=== PATIENT | female | born 1950 | race Caucasian/White ===

== ENCOUNTER → 2018-06-19 08:20 | Outpatient (CLI) | payer MEDICARE, OTHER, SELFPAY ==
--- NOTE | 2018-06-19 08:26 | BI_ITS ---
MAMMOGRAPHY - BILATERAL SCREENING REASON FOR EXAM: Female, 67 years old. Routine annual screening examination. PERTINENT HISTORY: Sisters with breast cancer. TECHNIQUE: Digital bilateral breast irene (3D mammographic acquisition) in the CC and MLO projections. 2-D mediolateral oblique (MLO) and craniocaudad (CC) views of both breasts were obtained. CAD: Full Field Digital Mammography with Computer Added Detection was performed. COMPARISON: Comparison is made with prior study dated May 26, 2017 and May 14, 2016. FINDINGS: Breast Composition: There are scattered areas of fibroglandular density. There are no dominant masses or suspicious calcifications. There is a 6.7 mm x 7.6 mm well-defined nodule in the upper lateral portion of the left breast. This most likely represents a small lymph node. Correlation with ultrasound is recommended. There are small bilateral benign appearing axillary lymph nodes. No other significant abnormalities are identified. There has been no significant change since the prior study. BI/SCREENING MAMM (CAD), BILAT IMPRESSION: 6.7 mm x 7.6 mm multiple fine nodule in the upper lateral portion of the left breast. Correlation with ultrasound is recommended. ASSESSMENT CATEGORY: BIRADS Category 0: Incomplete. Need additional imaging evaluation. A letter regarding these results will be sent to the patient by the facility within 30 days. Approximately 10% of breast cancers are not detected by mammography. A normal mammogram should not delay biopsy of a clinically suspicious abnormality. [id number] Electronically Signed: Fernando Bullard MD at 10:34 EST Tel [phone], Service support ,
== END ==
PROVIDERS: Family Provider Internal Medicine; PCP Internal Medicine; Referring Provider Internal Medicine; Visit Provider Internal Medicine
DX: Z12.31 Encounter for screening mammogram for malignant neoplasm of breast (principal); N63.20 Unspecified lump in the left breast, unspecified quadrant
CPT/HCPCS: 77063; 77067

== ENCOUNTER → 2018-06-22 09:59 | Outpatient (CLI) | payer MEDICARE, OTHER, SELFPAY ==
--- NOTE | 2018-06-22 10:01 | US_ITS ---
STUDY: ULTRASOUND BREAST - LEFT REASON FOR EXAM: Female, 67 years old. Abnormal screening mammogram. TECHNIQUE: Axial and longitudinal images of the LEFT breast were performed with a high resolution ultrasound transducer. COMPARISON: Comparison is made with prior mammogram dated June 19, 2018. FINDINGS: LEFT Breast: The mammographic abnormality corresponds to a 0.8 cm x 0.2 cm well-defined hypoechoic nodule with central echogenic hilum. This is suggestive of a small lymph node. US/Breast Limited Unilateral IMPRESSION: The mammographic findings correspond to a small benign-appearing lymph node. Routine annual mammographic follow-up is recommended. ASSESSMENT CATEGORY: BIRADS Category 2: Benign. A letter regarding these results will be sent to the patient by the facility within 30 days. Electronically Signed: Fernando Bullard MD at 11:14 EST Tel [phone], Service support ,
== END ==
PROVIDERS: Family Provider Internal Medicine; PCP Internal Medicine; Referring Provider Internal Medicine; Visit Provider Internal Medicine
DX: R92.8 Other abnormal and inconclusive findings on diagnostic imaging of breast (principal)
CPT/HCPCS: 76642

== ENCOUNTER → 2019-02-22 08:36 | Outpatient (CLI) | payer MEDICARE, OTHER, SELFPAY ==
--- NOTE | 2019-02-22 08:39 | BI_ITS ---
MAMMOGRAPHY - BILATERAL DIAGNOSTIC REASON FOR EXAM: Female, 68 years old. Left breast lump. PERTINENT HISTORY: Sisters with breast cancer. TECHNIQUE: Digital bilateral breast irene (3D mammographic acquisition) in the CC and MLO projections. 2-D mediolateral oblique (MLO) and craniocaudad (CC) views of both breasts were obtained. CAD: Full Field Digital Mammography with Computer Added Detection was performed. COMPARISON: Comparison is made with prior study dated June 19, 2018 and May 26, 2017. FINDINGS: Breast Composition: There are scattered areas of fibroglandular density. There are no dominant masses or suspicious calcifications. Stable 6.7 x 7 mm well-defined nodule in the upper lateral portion of the left breast most likely a small lymph node. Prior ultrasound demonstrated to be a lymph node. Stable small bilateral axillary lymph nodes. No other significant abnormalities are identified. There has been no significant change since the prior study. BI/DIAG MAMM W/CAD, BILAT IMPRESSION: Stable bilateral diagnostic mammogram. With the patient's history of a palpable abnormality in the left breast, correlation with ultrasound is recommended. ASSESSMENT CATEGORY: BIRADS Category 0: Incomplete. Need additional imaging evaluation. A letter regarding these results will be sent to the patient by the facility within 30 days. Approximately 10% of breast cancers are not detected by mammography. A normal mammogram should not delay biopsy of a clinically suspicious abnormality. Electronically Signed: Fernando Bullard, at 10:36 EDT , Service support ,
--- NOTE | 2019-02-22 08:39 | US_ITS ---
STUDY: ULTRASOUND BREAST - LEFT REASON FOR EXAM: Female, 68 years old. Palpable lump left breast. TECHNIQUE: Axial and longitudinal images of the LEFT breast were performed with a high resolution ultrasound transducer. COMPARISON: Comparison is made with prior mammogram done earlier in the day as well as prior ultrasound the left breast dated June 22, 2018. FINDINGS: LEFT Breast: The inferior half of the left breast was examined by ultrasound. There is homogeneous fibroglandular tissue. No solid or cystic mass lesion is seen. US/Breast Limited Unilateral IMPRESSION: Unremarkable sonographic examination of the inferior aspect of the left breast. ASSESSMENT CATEGORY: BIRADS Category 1: Negative. A letter regarding these results will be sent to the patient by the facility within 30 days. Electronically Signed: Fernando Bullard, at 10:37 EDT , Service support ,
== END ==
PROVIDERS: Family Provider Internal Medicine; PCP Internal Medicine; Referring Provider Obstetrics & Gynecology; Visit Provider Obstetrics & Gynecology
DX: N63.23 Unspecified lump in the left breast, lower outer quadrant (principal)
CPT/HCPCS: 76642; 77062; 77066; G0279

== ENCOUNTER → 2020-05-27 12:52 | Outpatient (CLI) | payer MEDICARE, OTHER, SELFPAY ==
--- NOTE | 2020-05-27 12:55 | BI_ITS ---
MAMMOGRAPHY - BILATERAL SCREENING REASON FOR EXAM: Female, 69 years old. Routine annual screening examination. PERTINENT HISTORY: Sisters with breast cancer. TECHNIQUE: Digital bilateral breast terry (3D mammographic acquisition) in the CC and MLO projections. 2-D mediolateral oblique (MLO) and craniocaudad (CC) views of both breasts were obtained. CAD: Full Field Digital Mammography with Computer Added Detection was performed. COMPARISON: Comparison is made with prior study dated 02/22/2019 and 06/19/2018. FINDINGS: Breast Composition: There are scattered areas of fibroglandular density. There are no dominant masses or suspicious calcifications. Stable benign-appearing bilateral axillary lymph nodes. Stable 6 mm x 7 mm well-defined nodule in the upper lateral portion of the left breast most likely representing a small intramammary lymph node. Prior ultrasound demonstrated this to be a small lymph node. No other significant abnormalities are identified. There has been no significant change since the prior study. BI/SCREEN MAMM (CAD) W/TERRY BILAT IMPRESSION: Stable bilateral screening mammogram. Yearly follow-up mammogram recommended. (A) ASSESSMENT CATEGORY: BIRADS Category 2: Benign. A letter regarding these results will be sent to the patient by the facility within 30 days. Approximately 10% of breast cancers are not detected by mammography. A normal mammogram should not delay biopsy of a clinically suspicious abnormality. [id number] Electronically Signed: Fernando Bullard, at 9:44 EDT , Service support ,
--- NOTE | 2020-05-27 13:02 | BD_ITS ---
STUDY: DUAL ENERGY X-RAY ABSORPTIOMETRY / DXA REASON FOR EXAM: Female, 69 years old. 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 COMPARISON: None. FINDINGS: Lumbar Spine (L1-L4): g/cm2 (0.990) / T-score (-1.5) / Z-score (0.2) Findings are suggestive of osteopenia with a low fracture risk. Left Femur Total: g/cm2 (0.799) / T-score (-1.7) / Z-score (-0.3) Left Femoral Neck: g/cm2 (0.852) / T-score (-1.3) / Z-score (0.3) Right Femur Total: g/cm2 (0.724) / T-score (-2.2) / Z-score (-0.9) Right Femoral Neck: g/cm2 (0.770) / T-score (-1.9) / Z-score (-0.3) BD/Dexa Bone Density Study IMPRESSION: The patient is considered osteopenic as outlined below according to World Derek Organization (WHO) criteria with a high fracture risk. Reference Information: The T-score is the number of standard deviations above or below the standard which is normal for young adults at their peak bone mineral density. The World Health Organization (WHO) interprets the T-scores as follows: Above -1 Normal bone density Between -1 and -2.5 Osteopenia Equal to / or below -2.5 Osteoporosis As a practical clinical guideline, osteopenia may be graded as follows: Mild -1 through -1.5 Moderate -1.6 through -2.0 Severe -2.1 through -2.4 The Z-score is the number of standard deviations above or below age-matched controls. A Z-score of less than -1.5 would be considered abnormal. References: 1. NIH Osteoporosis and Related Bone Diseases www osteo.org 2. International Society for Clinical Densitometry www iscd.org 3. National Osteoporosis Foundation www nof.org Electronically Signed: Fernando Bullard, at 8:54 EDT , Service support ,
== END ==
PROVIDERS: PCP Internal Medicine; Referring Provider Internal Medicine; Visit Provider Internal Medicine
DX: Z78.0 Asymptomatic menopausal state (principal); Z12.31 Encounter for screening mammogram for malignant neoplasm of breast; Z80.3 Family history of malignant neoplasm of breast
CPT/HCPCS: 77063; 77067; 77080

== ENCOUNTER → 2021-05-28 10:04 | Outpatient (CLI) | payer MEDICARE, OTHER, SELFPAY ==
--- NOTE | 2021-05-28 10:08 | BI_ITS ---
MAMMOGRAPHY - BILATERAL SCREENING REASON FOR EXAM: Female, 70 years old. Routine annual screening examination. PERTINENT HISTORY: Sisters with breast cancer. TECHNIQUE: Digital bilateral breast terry (3D mammographic acquisition) in the CC and MLO projections. 2-D mediolateral oblique (MLO) and craniocaudad (CC) views of both breasts were obtained. CAD: Full Field Digital Mammography with Computer Added Detection was performed. COMPARISON: Comparison is made with prior study 05/27/2020 and 02/22/2019. FINDINGS: Breast Composition: There are scattered areas of fibroglandular density. There are no dominant masses or suspicious calcifications. Stable 6 mm x 6 mm well-defined nodule in the upper lateral portion of the left breast suggestive of a small lymph node. Stable benign-appearing bilateral axillary lymph nodes. No other significant abnormalities are identified. There has been no significant change since the prior study. BI/SCRN MAMM (CAD)W/TERRY BILAT IMPRESSION: Stable bilateral screening mammogram. Yearly follow-up mammogram recommended. (A) ASSESSMENT CATEGORY: BIRADS Category 2: Benign. A letter regarding these results will be sent to the patient by the facility within 30 days. Approximately 10% of breast cancers are not detected by mammography. A normal mammogram should not delay biopsy of a clinically suspicious abnormality. [id number] Electronically Signed: Fernando Bullard MD at 15:11 EDT , Service support ,
== END ==
PROVIDERS: PCP Internal Medicine; Referring Provider Internal Medicine; Visit Provider Internal Medicine
DX: Z12.31 Encounter for screening mammogram for malignant neoplasm of breast (principal); Z80.3 Family history of malignant neoplasm of breast
CPT/HCPCS: 77063; 77067

== ENCOUNTER → 2022-06-07 | Outpatient (CLI) | payer MEDICARE, OTHER, SELFPAY ==
--- NOTE | 2022-06-07 09:31 | BI_ITS ---
MAMMOGRAPHY - BILATERAL SCREENING REASON FOR EXAM: Female, 71 years old. Routine annual screening examination. PERTINENT HISTORY: Sisters with breast cancer. TECHNIQUE: Digital bilateral breast terry (3D mammographic acquisition) in the CC and MLO projections. 2-D mediolateral oblique (MLO) and craniocaudad (CC) views of both breasts were obtained. CAD: Full Field Digital Mammography with Computer Added Detection was performed. COMPARISON: Comparison is made with prior study dated 05/28/2021 and 05/27/2020. FINDINGS: Breast Composition: There are scattered areas of fibroglandular density. There are no dominant masses or suspicious calcifications. Stable small benign appearing bilateral axillary No other significant abnormalities are identified. There has been no significant change since the prior study. BI/SCRN MAMM (CAD)W/TERRY BILAT IMPRESSION: Stable bilateral screening mammogram. Yearly follow-up mammogram recommended. (A) ASSESSMENT CATEGORY: BIRADS Category 2: Benign. A letter regarding these results will be sent to the patient by the facility within 30 days. Approximately 10% of breast cancers are not detected by mammography. A normal mammogram should not delay biopsy of a clinically suspicious abnormality. [id number] Electronically Signed: Fernando Bullard MD at 10:53 EDT ,
== END | disposition home or self-care (01) ==
PROVIDERS: PCP Internal Medicine; Visit Provider Internal Medicine
DX: Z12.31 Encounter for screening mammogram for malignant neoplasm of breast (principal); Z80.3 Family history of malignant neoplasm of breast
CPT/HCPCS: 77063; 77067

== ENCOUNTER → 2023-02-09 | Outpatient (CLI) | payer MEDICARE, OTHER, SELFPAY ==
--- NOTE | 2023-02-09 08:54 | BD_ITS ---
STUDY: DUAL ENERGY X-RAY ABSORPTIOMETRY / DXA REASON FOR EXAM: Female, 72 years old. [id number] TECHNIQUE: Bone Mineral Density (BMD) measurements of lumbar spine and bilateral hips were obtained. COMPARISON: Comparison is made with prior study dated May 27, 2020. FINDINGS: Lumbar Spine (L1-L4): g/cm2 (0.845) / T-score (-1.6) / Z-score (0.6) Findings are suggestive of osteopenia with a moderate fracture risk. Left Femur Total: g/cm2 (0.738) / T-score (-1.7) / Z-score (-0.1) Left Femoral Neck: g/cm2 (0.682) / T-score (-1.5) / Z-score (0.4) Right Femur Total: g/cm2 (0.667) / T-score (-2.3) / Z-score (-0.7) Right Femoral Neck: g/cm2 (0.597) / T-score (-2.3) / Z-score (-0.4) The T-Scores on the most recent prior examination were: Lumbar Spine (L1-L4): There has been worsening of bone density since the previous examination. Left Femur Total: which represents a worsening of 0.1%. Right Femur Total: which represents an improvement of 0.1%. BD/Dexa Bone Density Study IMPRESSION: The patient is considered osteopenic as outlined below according to World Derek Organization (WHO) criteria with a high fracture risk. There has been worsening of bone density since the previous examination. Reference Information: The T-score is the number of standard deviations above or below the standard which is normal for young adults at their peak bone mineral density. The World Health Organization (WHO) interprets the T-scores as follows: Above -1 Normal bone density Between -1 and -2.5 Osteopenia Equal to / or below -2.5 Osteoporosis As a practical clinical guideline, osteopenia may be graded as follows: Mild -1 through -1.5 Moderate -1.6 through -2.0 Severe -2.1 through -2.4 The Z-score is the number of standard deviations above or below age-matched controls. A Z-score of less than -1.5 would be considered abnormal. References: 1. NIH Osteoporosis and Related Bone Diseases www osteo.org 2. International Society for Clinical Densitometry www iscd.org 3. National Osteoporosis Foundation www nof.org Electronically Signed: Fernando Bullard MD at 10:28 EDT ,
== END | disposition home or self-care (01) ==
LOC: OPBD 08:42
PROVIDERS: PCP Internal Medicine; Referring Provider Internal Medicine; Visit Provider Internal Medicine
DX: M81.0 Age-related osteoporosis without current pathological fracture (principal); M85.80 Other specified disorders of bone density and structure, unspecified site
CPT/HCPCS: 77080

== ENCOUNTER → 2023-06-08 | Outpatient (CLI) | payer MEDICARE, OTHER, SELFPAY ==
--- NOTE | 2023-06-08 07:46 | BI_ITS ---
MAMMOGRAPHY - BILATERAL SCREENING REASON FOR EXAM: Female, 72 years old. Routine annual screening examination. PERTINENT HISTORY: Sisters with breast cancer. History of remote right breast biopsy. TECHNIQUE: Digital bilateral breast terry (3D mammographic acquisition) in the CC and MLO projections. 2-D mediolateral oblique (MLO) and craniocaudad (CC) views of both breasts were obtained. CAD: Full Field Digital Mammography with Computer Added Detection was performed. COMPARISON: Comparison is made with prior study dated June 07, 2022 and May 28, 2021. FINDINGS: Breast Composition: There are scattered areas of fibroglandular density. There are no dominant masses or suspicious calcifications. Stable benign-appearing right axillary lymph nodes. No other significant abnormalities are identified. There has been no significant change since the prior study. BI/SCRN MAMM (CAD)W/TERRY BILAT IMPRESSION: Stable bilateral screening mammogram. Yearly follow-up mammogram recommended. (A) ASSESSMENT CATEGORY: BIRADS Category 2: Benign. A letter regarding these results will be sent to the patient by the facility within 30 days. Approximately 10% of breast cancers are not detected by mammography. A normal mammogram should not delay biopsy of a clinically suspicious abnormality. [id number] Electronically Signed: Fernando Bullard MD at 8:53 EDT ,
== END | disposition home or self-care (01) ==
LOC: OPBI 07:45
PROVIDERS: PCP Internal Medicine; Referring Provider Internal Medicine; Visit Provider Internal Medicine
DX: Z12.31 Encounter for screening mammogram for malignant neoplasm of breast (principal)
CPT/HCPCS: 77063; 77067

== ENCOUNTER → 2024-06-13 | Outpatient (CLI) | payer MEDICARE, OTHER, SELFPAY | END | disposition home or self-care (01) | PROVIDERS: PCP Internal Medicine; Referring Provider Internal Medicine; Visit Provider Internal Medicine | DX: Z12.31 Encounter for screening mammogram for malignant neoplasm of breast (principal) | CPT/HCPCS: 77063; 77067 ==

== ENCOUNTER → 2025-02-12 | Outpatient (CLI) | payer MEDICARE, OTHER, SELFPAY ==
--- NOTE | 2025-02-12 08:50 | BD_ITS ---
PROCEDURE: DEXA BONE DENSITY STUDY 02/12/2025 REASON FOR EXAM: F, age 74 y/o . Postmenopausal. TECHNIQUE: DEXA BONE DENSITY STUDY COMPARISON: Prior study dated May 27, 2020. FINDINGS: BMD and T-SCORES Lumbar spine: 0.887 g/cm2, T-score -1.5 Levels: L1 through L4 Change from prior: Loss of 7.6%. Left femoral neck: 0.616 g/cm2, T-score -2.1 Femoral neck comparison data not recommended for monitoring change. Left total hip: 0.740 g/cm2, T-score -1.7 Change from prior: Improvement of 0.3%. Right femoral neck: 0.590 g/cm2, T-score -2.3 Femoral neck comparison data not recommended for monitoring change. Right total hip: 0.665 g/cm2, T-score -2.3 Change from prior: Loss of 0.4%. The World Health Organization has defined the following categories based on bone density: Normal bone density: T-score equal to or greater than -1.0 Osteopenia: T-score between -1.0 and -2.5 Osteoporosis: T-score equal to or less than -2.5 The patient does meet the pharmacological treatment recommendations for prevention of osteoporosis. BD/Dexa Bone Density Study IMPRESSION: OSTEOPENIA. Recommend follow-up as clinically warranted. Reading Location: [place] [id number]
== END | disposition home or self-care (01) ==
LOC: OPBD 08:48
PROVIDERS: PCP Internal Medicine; Referring Provider Internal Medicine; Visit Provider Internal Medicine
DX: Z78.0 Asymptomatic menopausal state (principal)
CPT/HCPCS: 77080

== ENCOUNTER → 2025-06-25 | Outpatient (CLI) | payer MEDICARE, OTHER, SELFPAY ==
--- NOTE | 2025-06-25 07:33 | BI_ITS ---
EXAM: SCRN MAMM (CAD)W/TERRY BILAT DATE: 06/25/2025 CLINICAL HISTORY: F, Age 74 y/o , SCREENING Sisters with breast cancer. Remote right breast biopsy. TECHNIQUE: Procedure Code: [id number] Modality: MG Procedure: SCRN MAMM (CAD)W/TERRY BILAT COMPARISON: Prior exam(s) dated June 13, 2024.. FINDINGS: TISSUE DENSITY: The breasts are almost entirely fatty. Bilateral Breast Mammographic Findings: No significant masses, calcifications or other abnormalities are identified. No suspicious masses, areas of developing architectural distortion, or suspicious calcifications. There has been no significant interval change. BI/SCRN MAMM (CAD)W/TERRY BILAT IMPRESSION: Stable bilateral screening mammogram. OVERALL FINAL ASSESSMENT BI-RADS 1: NEGATIVE. RECOMMENDATION: Routine annual follow-up in 1 Year Additional Recommendation none A letter with findings and recommendations will be mailed to the patient. Reading Location: [facility]
--- OUTSIDE RECORDS SUMMARY | 2025-06-25 07:54 | XMS RPT_ITS | CCD ---
Author Organization [facility] Care Team Providers Care Big Machine Consultant Name Role Phone Cat Kimball MD Primary Care Provider CAT KIMBALL MD Admitting Unavailable CAT KIMBALL MD Primary Care Unavailable CAT KIMBALL MD Consulting Unavailable LATOUACT Reynoso MD Attending Unavailable PROVIDER, UNKNOWN Consulting Unavailable PROVIDER, UNKNOWN Consulting Unavailable PROVIDER, UNKNOWN Consulting Unavailable LATCAT POWELL MD Primary Care Unavailable LATOUCAT Reynoso MD Consulting Unavailable LATOUCAT Reynoso MD Attending Unavailable LATOUCAT Reynoso MD Admitting Unavailable PROVIDER, UNKNOWN Consulting Unavailable PROVIDER, UNKNOWN Consulting Unavailable PROVIDER, UNKNOWN Consulting Unavailable Dr. Cat Kimball MD Primary Care Provider [phone] Jigar HOLMAN, Dr. Foster Attending Provider Dr. Cat Kimball MD Referring Provider Cat Kimball MD Primary Care Provider [phone] RHINA MONSALVE Attending Unavail able RHINA MONSALVE Referring Unavail able LATOUF, BUTROS Primary Care Unavailable Latouf, Butros Primary Care Unavailable Taylor Dominguez Referring Unavailable Taylor Dominguez Attending Unavailable Lattomasf, Butros Primary Care Unavailable Latouf Butsohail Referring Unavailable LatouCat reynoso Attending Unavailable LatCat powell Attending Unavailable Latouf, Butros Primary Care Unavailable Latouf, Butros Referring Unavailable Medications Current Medications Medication Drug Class(es) Dates Sig (Normalized) Sig (Original) aspirin 81 mg oral tablet (11 sources) Platelet Aggregation Inhibitor, Nonsteroidal Anti-inflammatory Drug take 81 mg by mouth once daily BABY ASPIRIN ORAL Take 81 mg by mouth once daily. Active Comment on above: Take 81 mg by mouth once daily. Calcium Carbonate / vitamin D3 (11 sources) calcium carbonate/vitamin D3 (CALCIUM 600 + D,3, ORAL) Take by mouth once daily. Active calcium carbonat e/vitamin D3 (CALCIUM 600 + D,3, ORAL) Take by mouth once daily. 0 Active Comment on above: Take by mouth once d aily. cholecalciferol, vitamin D3, (VITAMIN D3 ORAL) (11 sources) cholecalciferol, vitamin D3, (VITAMIN D3 ORAL) Take by mouth once daily. Active cholecalciferol, vitamin D3, (VITAMIN D3 ORAL) Take by mouth once daily. 0 Active Comment on above: Take by mouth once d aily. omeprazole 20 mg delayed release oral capsule (11 sources) Proton Pump Inhibitor take 1 capsule by mouth twice daily omeprazole (PRILOSEC) 20 mg capsule Take 20 mg by mouth twice daily. Active Comment on above: Take 20 mg by mouth twice daily. sucralfate 1000 mg oral tablet (11 sources) Aluminum Complex take 1 tablet by mouth twice daily as needed sucralfate (CARAFATE) 1 gram tablet Take 1 g by mouth twice daily. As needed Active Comment on above: Take 1 g by mouth tw ice daily. As needed Completed/Discontinued Medications Medication Drug Class(es) Dates Sig (Normalized) Sig (Original) calcium chloride 0.0014 meq/ml / potassium chloride 0.004 meq/ml / sodium chloride 0.103 meq/ml / sodium lactate 0.028 meq/ml injectable solution (2 sources) Start: 04-12-2025 End: 04-12-2025 take 5-30 mL intravenously every hour 5-30 mL/hr, INTRAVENOUS, CONTINUOUS, Starting on Tue04/12/25 at 0930, Until Tue04/12/25 at 1038, Preprocedure Start: 03-23-2024 End: 03-23-2024 take 5-30 mL intravenously every hour 5-30 mL/hr, INTRAVENOUS, CONTINUOUS, Starting on Tue03/23/24 at 0800, Until Tue03/23/24 at 0926, Preprocedure Problems Active Problems Problem Classification Problem Date Documented Da te Episodic/Chronic Diseases of white blood cells (1 source) Decreased white blood cell count, unspecified; Translations: [Decreased white blood cell count, unspecified] Onset: 12-26-2024 Chronic Disorders of lipid metabolism (10 sources) Hypercholesterolemi a; Translations: [Pure hypercholesterolemi a, unspecified] Onset: 03-23-2024 03-23-2024 Chronic Esophageal disorders (20 sources) Resendiz's esophagus; Translations: [Resendiz's esophagus without dysplasia] Onset: 01-19-2012 Chronic Gastrointestinal hemorrhage (11 sources) Hemorrhage of rectum and anus; Translations: [Hemorrhage of anus and rectum] 06-14-2008 Episodic Genitourinary symptoms and ill-defined conditions (18 sources) Urge incontinence of urine; Translations: [Urge incontinence] Onset: 07-22-2008 Resolved: 07-01-2009 07-01-2009 Chronic Nutritional deficiencies (1 source) Vitamin D deficiency, unspecified; Translations: [Vitamin D deficiency, unspecified] Onset: 12-26-2024 Chronic Other screening for suspected conditions (not mental disorders or infectious disease) (6 sources) Patient encounter status; Translations: [Encounter for screening for malignant neoplasm of colon] Onset: 07-09-2024 02-26-2025 Episodic Prolapse of female genital organs (11 sources) Midline cystocele; Translations: [Cystocele, midline] Onset: 07-22-2008 07-22-2008 Chronic Past or Other Problems Problem Classification Problem Date Documented Da te Episodic/Chronic Abdominal hernia (11 sources) Hiatal hernia; Translations: [Diaphragmatic hernia without obstruction or gangrene] Onset: 01-19-2012 01-19-2012 Episodic Genitourinary symptoms and ill-defined conditions (11 sources) Urgent desire to urinate; Translations: [Urgency of urination] Onset: 07-22-2008 07-22-2008 Episodic Residual codes; unclassified (1 source) Asymptomatic menopausal state; Translations: [Asymptomatic menopausal state] Onset: 02-18-2025 Episodic Unclassified (1 source) Patient encounter status 02-26-2025 Results Test Name Value Interpretation Reference Range Facility ANES POSTPROC EVALon 025 ANES POSTPROC EVAL HNO ID: [id number] Author: MONSERRAT GARCIA MD Service: Anesthesiology Author Type: Physician Type: Anesthesia Postprocedure Evaluation Filed: 04/12/2025 13:42 Note Text: POST ANESTHESIA EVALUATION NOTE : 1950 Procedure Summary Date: 04/12/25 Room / Location: [facility] Anesthesia Start: 950 Anesthesia Stop: 5 Procedures: EGD DIAGNOSTIC COLONOSCOPY SCREENING Diagnosis: Resendiz's esophagus without dysplasia Encounter for screening colonoscopy Scheduled Providers: Rhina Monsalve MD Responsible Provider: Monserrat Garcia MD Anesthesia Type: MAC ASA Status: 2 Anesthesia Type: MAC Last Vitals Vitals Value Taken Time BP 101/69 04/12/25 11:22 Temp 36 ?C (96.8 ?F) 04/12/25 10:41 Pulse 74 04/12/25 10:41 Resp 18 04/12/25 11:21 SpO2 97 % 04/12/25 11:21 Vitals shown include unfiled device data. Post Anesthesia Patient Status Patient Evaluation: PACU. PACU/ICU Patient Condition: stable. Anticipated Disposition: phase 2 then home. Neurological Status: aware and responsive. Pulmonary Status: breathing comfortably on room air Airway Control: returned to baseline unsupported. Cardiovascular Status: stable. Pain Management: clinically adequate Postoperative Hydration: acceptable. Intraoperative Events: no significant anesthesia events Post Operative Nausea/Vomiting Status: no significant post operative nausea or vomiting Recommendation: continue current plan of care. Anesthesia Observations No Documentation SIGNATURE: Monserrat Garcia MD PATIENT NAME: Emeli Nascimento DATE: April 12, 2025 TIME: 1:41 PM CSN: [id number] [facility] ANES PRE-OPon 04-12-2025 ANES PRE-OP HNO ID: [id number] Author: MONSERRAT GARCIA MD Service: Anesthesiology Author Type: Physician Type: Anesthesia Preprocedure Evaluation Filed: 04/12/2025 09:16 Note Text: ANESTHESIOLOGY DAY OF SURGERY NOTE : 1950 Procedure Information Date/Time: 04/12/25 1000 Scheduled providers: Rhina Monsalve MD Procedures: EGD DIAGNOSTIC COLONOSCOPY SCREENING Location: [facility] Estimated body mass index is 26.89 kg/m? as calculated from the following: Height as of this encounter: 157.5 cm (5' 2). Weight as of this encounter: 66.7 kg (147 lb). Most recent hematocrit and potassium results: Potassium 4.1 06/03/2022 Relevant Problems GI (+) Erosive esophagitis (+) Gastroesophageal reflux disease (+) Hiatal hernia Cardiovascular (+) Hypercholesteremia Gastrointestinal (+) Resendiz esophagus I - PHYSICAL EVALUATION AIRWAY Patient intubated: No. Tracheostomy tube not present Mallampati: II. TM distance: >3 FB. Neck ROM: full ROM without neurological symptoms. Mouth openin FB. Short neck: no. Thick neck: no DENTAL Dental findings: teeth intact. II - ANESTHESIA PLAN ASA Score: 2 Anesthetic Plan: MAC The patient is not a current smoker. NPO Status: adequate Monitoring Plan Monitoring plan: standard ASA. Post Procedure Analgesic Plan Postoperative analgesic plan: multimodal analgesia. Informed Consent Anesthetic risks, benefits, alternatives, personnel and consent discussed: yes. Patient / Responsible Alliance Party agrees to proceed: yes Patient / Surrogate agrees to blood products: blood products not planned Potential Anesthesia issues that may suggest increased risk of complications or contraindication to planned procedure: none. Vitals Value Taken Time BP 114/72 04/12/25 09:05 Pulse 74 04/12/25 09:05 Resp Temp 36.6 ?C (97.9 ?F) 04/12/25 09:05 SpO2 97 % 04/12/25 09:05 Outpatient Medications as of 04/12/2025 Medication Sig calcium carbonate/vitamin D3 (CALCIUM 600 + D,3, ORAL) Take by mouth once daily. cholecalciferol, vitamin D3, (VITAMIN D3 ORAL) Take by mouth once daily. omeprazole (PRILOSEC) 20 mg capsule Take 20 mg by mouth twice daily. sucralfate (CARAFATE) 1 gram tablet Take 1 g by mouth twice daily. As needed BABY ASPIRIN ORAL Take 81 mg by mouth once daily. Facility-Administered Medications as of 04/12/2025 Medication Dose Route Frequency lidocaine 10 mg/mL (1 %) 1-2 mg injection (XYLOCAINE) 0.1-0.2 mL INTRADERMAL PRN lactated ringers iv infusion 5-30 mL/hr INTRAVENOUS CONTINUOUS I have interviewed and examined the patient. I have reviewed the medical record and/or the pre-anesthesia evaluation, pertinent labs, and test results. This contains updated information obtained within 48 hours of Surgery/Procedure. SIGNATURE: Monserrat Garcia MD PATIENT NAME: Emeli Nascimento DATE: April 12, 2025 TIME: 9:13 AM CSN: [id number] [facility] HISTORY PHYSICALon HISTORY PHYSICAL HNO ID: [id number] Author: SUZANNE ESPINOSA APRN.PREDATORY ANIMAL HUNTER Service: Anesthesiology Author Type: Nurse Practitioner Type: H&P Filed: 04/12/2025 09:34 Note Text: HISTORY AND PHYSICAL EXAMINATION Emeli Nascimento 1950 SERVICE DATE: 04/12/2025 SERVICE TIME: 9:16 AM PRIMARY CARE PHYSICIAN: Cat Kimball MD SURGEON: Dr Monsalve ANESTHESIA: MAC DIAGNOSIS: Resendiz's esophagus without dysplasia [K22.70] Encounter for screening colonoscopy [Z12.11] PROCEDURE: EGD and colonoscopy Subjective CHIEF COMPLAINT: Resendiz's esophagus The reason for this visit is to perform a comprehensive review of the patient's past medical history, assess their current health status and obtain any additional testing required based on anesthesia guidelines. We will also identify any potential anesthesia problems or contraindications to the planned procedure. HPI: This is a 74 year old female who presents with hx Resendiz's esophagus. GERD on carafate and omeprazole still occasional symptoms depending on her food intake. Denies changes in bowel habits, no hematochezia or melena, no abdominal pain. Last colonoscopy 2014, EGD 03/2024. Family hx sister colon cancer in her 70s Family hx breast cancer, renal cancer, brain cancer. Last colonoscopy METS: Climb a flight of stairs or walk up a hill (5.50 METs) FUNCTIONAL STATUS: Independent PAST MEDICAL HISTORY Diagnosis Date Resendiz's esophageal ulceration Resendiz's esophagus with low grade dysplasia 2012 AND 05/02/2015 Diverticulitis of colon without hemorrhage GERD (gastroesophageal reflux disease) H. pylori infection Hemorrhage of rectum and anus Hemorrhoids without complication Hypercholesteremia 03/23/2024 Hypersomnia Malaise and fatigue Migraine w/o mgn w/o status migrainousus OAB (overactive bladder) PMH - PAST MEDICAL HISTORY OF PROLAPSED BLADDER Unspecified urinary incontinence USI and occ urgency Varicose veins of right lower extremity with pain PAST SURGICAL HISTORY Procedure Laterality Date BREAST BIOPSY 09/01/2004 benign COLONOSCOPY 05/02/2015 Dr. Bryson due in 2024 COLPOSCOPY CERVIX UPPER/ADJACENT VAGINA 1992 Colposcopy Cervicitis only No treatment EGD 02/11/2016 EGD EGD WITH BIOPSY(S) 02/09/2017 EGD WITH BIOPSY(S) 01/27/2018 intestinal metaplasia EGD WITH BIOPSY(S) 12/08/2018 intestinal metaplasia EGD WITH BIOPSY(S) 01/23/2020 Resendiz's without dysplasia; Dr. Monsalve EGD WITH BIOPSY(S) 01/09/2021 Resendiz's without dysplasia; Dr. Monsalve EGD WITH BIOPSY(S) 04/22/2023 Resendiz's without dysplasia; Dr. Monsalve EGD WITH BIOPSY(S) 03/23/2024 neg for Resendiz's; Dr. Monsalve ESOPHAGOSCOPY FLEX TRANSORAL LESION ABLATION 06/18/2015 RFA #1 ESOPHAGOSCOPY FLEX TRANSORAL LESION ABLATION 12/03/2015 RFA #2 HYSTERECTOMY 2013 LIGATE FALLOPIAN TUBE FAMILY HISTORY Problem Relation Age of Onset Heart Mother CONGESTIVE HEART FAILURE Cancer Father nasal tumor other (brain tumor) Brother other (brain tumor) Sister Cancer Brother melanoma Breast Cancer Sister Cancer Brother brain tumor Breast Cancer Sister Colon Cancer Sister other (kidney cancer) Sister SOCIAL HISTORY[1] Prior to Admission medications as of 04/12/25 0930 Medication Sig Last Dose Taking calcium carbonate/vitamin D3 (CALCIUM 600 + D,3, ORAL) Take by mouth once daily. 04/05/2025 Yes cholecalciferol, vitamin D3, (VITAMIN D3 ORAL) Take by mouth once daily. 04/05/2025 Yes omeprazole (PRILOSEC) 20 mg capsule Take 20 mg by mouth twice daily. 04/12/2025 at 7:00 AM Yes sucralfate (CARAFATE) 1 gram tablet Take 1 g by mouth twice daily. As needed 04/12/2025 at 7:00 AM Yes BABY ASPIRIN ORAL Take 81 mg by mouth once daily. ALLERGIES No Known Allergies COMPLETE REVIEW OF SYSTEMS: GENERAL: No weight loss, malaise or fevers RESPIRATORY: Negative for cough, hemoptysis, wheezing, COPD, dyspnea or shortness of breath Cardiac: Negative for chest pain, leg swelling, hypertension, CHF or palpitations GI: No nausea, vomiting, or diarrhea and See HPI : OAB MUSCULOSKELETAL: bilateral knee pain PSYCH: Negative for sleep disturbance, mood disorder and recent psychosocial stressors ENDOCRINE:Denies diabetes and thyroid problems NEURO: No Hx seizures, tremors or CVA, hx migraines Heme/OnNo hx blood clots, clotting disorders, or cancer Objective PHYSICAL EXAM: 04/12/25 0905 BP: 114/72 Pulse: 74 Temp: 36.6 ?C (97.9 ?F) TempSrc: Temporal Artery SpO2: 97% Weight: 66.7 kg (147 lb) Height: 157.5 cm (5' 2) Body mass index is 26.89 kg/m?. MENTAL STATUS: alert, oriented to person, place and time HEENT: Normocephalic/atraumati c LUNGS: Lungs clear to auscultation, Good diaphragmatic excursion CARDIAC: Normal S1 and S2; no rubs, murmurs, or gallops ABDOMEN: Soft, nontender EXTREMITIES: Extremities normal, no deformities, edema, clubbing or skin discoloration. Good capillary refill. Diagnostic tests reviewed (more content not included)... [facility] OPERATIVE NOon 04-12-2025 OPERATIVE NO HNO ID: [id number] Author: RHINA MONSALVE MD Service: General Surgery Author Type: Physician Type: Operative Report Filed: 04/12/2025 10:47 Note Text: OPERATIVE/PROCEDURE REPORT LOG ID: [id number] SURGERY/PROCEDURE DATE: 04/12/2025 INCISION/PROCEDURE START TIME: 9:58 AM INCISION CLOSE/PROCEDURE END TIME: 10:36 AM SURGEON(S)/PROCEDURALIS T(S) AND DETAIL ASSEMBLER(S): Rhina Monsalve MD - Proceduralist Dora Arriaga DO SURGERY/PROCEDURE(S): EGD with biopsies Colonoscopy ANESTHESIA: Monitored Anesthesia Care SURGERY/PROCEDURE DETAILS: Patient is a 74-year-old female who has Resendiz's esophagus with low-grade dysplasia presents today for surveillance. She also has a family history of colorectal carcinoma presents today for high risk screening. The risks, and complications of the procedure were reviewed with the patient in detail including bleeding, missing the lesion and perforation requiring emergency surgery and anesthetic risks. Patient agreed to proceed. Patient brought to the endoscopy suite and routine monitors performed. She was placed in left lateral position. After adequate MAC anesthesia was obtained scope was inserted and passed in the esophagus. Z-line noted at about 30 cm. There was 1 area concerning for Resendiz's esophagus both on visualization and narrowband imaging. Remainder of the esophagus showed no concerning features of Resendiz's esophagus. Scope was inserted retroflexed view shows a Hill grade 4. Remainder the stomach and up to the second portion of the duodenum were normal. Scope was then withdrawn and biopsies were obtained of the areas of concern and surrounding esophagus as well. Air was aspirated the stomach and the scope was withdrawn. Next we turned our attention to the colon. Perianal inspection digital rectal exam was normal. Scope was inserted and passed up to the cecum. Cecum identified the appendiceal orifice and the ileocecal valve. The scope was then slowly drawn mucosa was carefully evaluated. There was sigmoid diverticulosis. Otherwise there were no lesions in the colon. Retroflexed view was normal. Scope was withdrawn and she Toller procedure well. Repeat colonoscopy in 5 years. Repeat EGD pending pathology report. PRE-OP/PRE-PROCEDURE DIAGNOSIS: Resendiz's esophagus low-grade dysplasia. Family history of colorectal carcinoma POST-OP/POST-PROCEDURE DIAGNOSIS: Same as Preop ESTIMATED BLOOD LOSS: 0 ml SPECIMENS: GE junction biopsies IMPLANTABLE DEVICES: NONE DRAINS: None COMPLICATIONS: None PARTICIPATION IN SURGERY/PROCEDURE: Resident, under direct supervision and the remainder of the procedure was performed by the primary surgeon/proceduralist with assistance. SIGNATURE: Rhina Monsalve MD PATIENT NAME: Emeli Nascimento DATE: April 12, 2025 TIME: 10:44 AM [facility] Pathology biopsy report Eliezer (Tiss)on 04-12-2025 AP DISCLAIMER [facility] Comment on above: Order Comment: Speci men Type: TISSUE SPECIMEN Ordering Facility: [facility] Address: [address] [place] [address] Result Comment: Sonia Gonzalez Test (LDT) Disclaimer: Performance characteristics of immunohistochemical, immunofluorescent, and chromogenic in-situ hybridization tests have been determined by the performing laboratory within the [facility] Department of Pathology and Laboratory Medicine ([facility], [facility], [facility], [facility], [facility], [facility], or [facility]) in a manner consistent with CLIA requirements. One or more of these tests may not have been cleared or approved by the FDA. The [facility] Department of Pathology and Laboratory Medicine is regulated under CLIA as qualified to perform high-complexity testing. These tests are used for clinical purposes. These should not be regarded as investigational or for research. Positive and negative controls stain appropriately. Performed By: #### 6 6121-5 #### [facility] CLIA [id number] [address] OF [place] CASE REPORT [facility] Comment on above: Order Comment: Speci men Type: TISSUE SPECIMEN Ordering Facility: [facility] Address: [address] [place] [address] Result Comment: Surg [facility] Pathology Report Case: [id number] Authorizing Provider: Rhina Monsalve, Collected: 04/12/2025 10:05 AM Ordering Location: [facility] Received: 04/12/2025 03:02 PM Pathologist: Jonn Richard MD Specimen: Esophagogastric Junction, Biopsy Performed By: #### 6 6121-5 #### [facility] CLIA [id number] [address] FINAL DIAGNOSIS Normal [facility] Comment on above: Order Comment: Speci men Type: TISSUE SPECIMEN Ordering Facility: [facility] Address: [address] [place] [address] Result Comment: A. E sophagogastric junction, biopsy: - Squamoglandular junction mucosa with intestinal metaplasia. - No dysplasia is identified. at 1325 EDT Performed By: #### 6 6121-5 #### [facility] CLIA [id number] [address] [place] [address] FINAL PERFORMING LAB [facility] Comment on above: Order Comment: Speci men Type: TISSUE SPECIMEN Ordering Facility: [facility] Address: [address] [place] [address] Result Comment: Diag nostic interpretation performed at: [facility], [address] [address] CLIA# [id number] Sewing Line Baler: Pawan Rondon MD Performed By: #### 6 6121-5 #### [facility] CLIA [id number] [address] GROSS DESCRIPTION [facility] Comment on above: Order Comment: Speci men Type: TISSUE SPECIMEN Ordering Facility: [facility] Address: [address] [place] [address] Result Comment: A. E sophagogastric Junction, Biopsy Received in formalin labeled esophagogastric junction biopsy are multiple pieces of sol, soft tissue aggregating to 1.3 x 0.2 x 0.2 cm. Totally submitted in one cassette. Gross examination performed at [facility], [address] [place] [address] RSA April 15, 2025 3:54 PM Performed By: #### 6 6121-5 #### [facility] CLIA [id number] [address] 04-03-2025 CNPN Telephone (AGGENS3) EMELI NASCIMENTO ([id number]) 1950 F Date Time Provider Department 04/03/25 RHINA MONSALVE AGGENS3 During your visit today, we recorded the following information about you: Delmi Pro RN 04/03/2025 5:44 PM Signed Patient called to confirm her testing date AND arrival time for her EGD AND Colonoscopy. We confirmed the testing is on 04/12/25 at 10 AM with a 9 AM arrival time. Emeli said her will be driving her. Emeli also mentioned she did not receive her prep. She does not use My Chart and the prep will not arrive via [facility] in time for her procedures next week. Patient agreed to have me email her the prep. She asked me to send it to [email or web address]. I validated there were no new medications to be added to her history. Patient denied questions at the end of our call. Delmi Pro RN Allergies As of Date: 04/03/2025 (No Known Allergies) Date Reviewed: 04/03/2025 Reviewed by: Aurora Garcia, CORY - Fully Assessed Reason for Visit: Future Appointment [256] Cmt: EGD AND colonoscopy scheduled 04/12/25 at [facility] Prescriptions as of 04/03/2025 - calcium carbonate/vitamin D3 (CALCIUM 600 + D,3, ORAL) Take by mouth once daily. - cholecalciferol, vitamin D3, (VITAMIN D3 ORAL) Take by mouth once daily. - omeprazole (PRILOSEC) 20 mg capsule Take 20 mg by mouth twice daily. - sucralfate (CARAFATE) 1 gram tablet Take 1 g by mouth twice daily. As needed - BABY ASPIRIN ORAL Take 81 mg by mouth once daily. Problem List As Of Date 04/03/2025 Noted Resolved RECTAL AND ANAL HEMORRHAGE [K62.5] Female Stress Incontinence [N39.3] 07/22/2008 07/01/2009 URGENCY OF URINATION [R39.15] 07/22/2008 CYSTOCELE, MIDLINE [N81.11] 07/22/2008 Urge Incontinence [N39.41] 07/01/2009 Erosive esophagitis [K22.10] 01/19/2012 Resendiz's esophagus without dysplasia [K22.70] 01/19/2012 Hiatal hernia [K44.9] 01/19/2012 Resendiz esophagus [K22.70] 12/30/2017 Gastroesophageal reflux disease [K21.9] 12/30/2017 Preop examination [Z01.818] 04/22/2023 Hypercholesteremia [E78.00] 03/23/2024 Encounter Status:Closed by DELMI PRO on 04/03/25 [facility] Bone density reportOrdered B y: Fernando Bullard on 02-12-2025 Study report Skeletal system DXA [facility] [address] [place] [address] Dexa Bone Density Study MR#: [id number] Acct: [id number] Name: EMELI NASCIMENTO Rep #: [id number] : 1950 F 74 From: Zafar Bullard MD PCP: Dr. Cat Kimball MD Status: REG CLI Study:Dexa Bone Density Study Date of Exam: 02/12/25 Exam# [id number] Ordering Dr: Blayne Kimball MD PROCEDURE: DEXA BONE DENSITY STUDY 02/12/2025 REASON FOR EXAM: F, age 74 y/o . Postmenopausal. TECHNIQUE: DEXA BONE DENSITY STUDY COMPARISON: Prior study dated May 27, 2020. FINDINGS: BMD and T-SCORES Lumbar spine: 0.887 g/cm2, T-score -1.5 Levels: L1 through L4 Change from prior: Loss of 7.6%. Left femoral neck: 0.616 g/cm2, T-score -2.1 Femoral neck comparison data not recommended for monitoring change. Left total hip: 0.740 g/cm2, T-score -1.7 Change from prior: Improvement of 0.3%. Right femoral neck: 0.590 g/cm2, T-score -2.3 Femoral neck comparison data not recommended for monitoring change. Right total hip: 0.665 g/cm2, T-score -2.3 Change from prior: Loss of 0.4%. The World Health Organization has defined the following categories based on bonedensity: Normal bone density: T-score equal to or greater than -1.0 Osteopenia: T-score between -1.0 and -2.5 Osteoporosis: T-score equal to or less than -2.5 The patient does meet the pharmacological treatment recommendations for prevention of osteoporosis. BD/Dexa Bone Density Study IMPRESSION: OSTEOPENIA. Recommend follow-up as clinically warranted. Reading Location: [place] [address] CC: Dr. Cat Kimball MD ~ Comic Illustrator: Signed [facility] Dexa Bone Density Studyon Dexa Bone Density Study [facility] [address] [place] [address] [id number] Dexa Bone Density Study MR#: [id number] Acct: [id number] Name: EMELI NASCIMENTO Rep #: [id number] : 1950 F 74 From: Fernando haile MD PCP: Dr. Cat Kimball MD Status: REG CLI Study: Dexa Bone Density Study Date of Exam: 02/12/25 Exam# [id number] Ordering Dr: Cat Kimball MD PROCEDURE: DEXA BONE DENSITY STUDY 02/12/2025 REASON FOR EXAM: F, age 74 y/o . Postmenopausal. TECHNIQUE: DEXA BONE DENSITY STUDY COMPARISON: Prior study dated May 27, 2020. FINDINGS: BMD and T-SCORES Lumbar spine: 0.887 g/cm2, T-score -1.5 Levels: L1 through L4 Change from prior: Loss of 7.6%. Left femoral neck: 0.616 g/cm2, T-score -2.1 Femoral neck comparison data not recommended for monitoring change. Left total hip: 0.740 g/cm2, T-score -1.7 Change from prior: Improvement of 0.3%. Right femoral neck: 0.590 g/cm2, T-score -2.3 Femoral neck comparison data not recommended for monitoring change. Right total hip: 0.665 g/cm2, T-score -2.3 Change from prior: Loss of 0.4%. The World Health Organization has defined the following categories based on bone density: Normal bone density: T-score equal to or greater than -1.0 Osteopenia: T-score between -1.0 and -2.5 Osteoporosis: T-score equal to or less than -2.5 The patient does meet the pharmacological treatment recommendations for prevention of osteoporosis. BD/Dexa Bone Density Study IMPRESSION: OSTEOPENIA. Recommend follow-up as clinically warranted. Reading Location: [place] [address] CC: Dr. Cat Kimball MD Comic Illustrator: Signed Normal [facility] CBC + DIFFon 12-26-2024 Baso # 0.01 x10EE3/UL Normal 0.00 - 0.10 [facility] Comment on above: Performed By: #### 2 60899 #### [facility],[address] [place], [place] [id number] Basophils/100 WBC (Bld) 0.3 % Normal 0.0 - 2.0 [facility] Comment on above: Performed By: #### 2 97829 #### [facility],[address] [place], [place] [id number] CBC + DIFF Normal [facility] Comment on above: Result Comment: CBC- COMPLETE BLOOD COUNT Performed By: #### 2 28942 #### [address] [address] EO # 0.13 x10EE3/UL Normal 0.00 - 0.50 [facility] Comment on above: Performed By: #### 2 06106 #### [place] [address] Eosinophils/100 WBC (Bld) 2.9 % Normal 0.0 - 7.0 [facility] Comment on above: Performed By: #### 2 55753 #### [place] [address] Erythrocyte distribution width (RBC) [Ratio] 13.4 % Normal 12.0 - 15.6 [facility] Comment on above: Performed By: #### 2 63440 #### [place] [address] Hematocrit (Bld) [Volume fraction] 39.1 % Normal 34.0 - 46.0 [facility] Comment on above: Performed By: #### 2 96821 #### [place] [address] Hemoglobin (Bld) [Mass/Vol] 14.0 g/dL Normal 12.0 - 16.0 [facility] Comment on above: Performed By: #### 2 01867 #### [place] [id number] Lymph # 1.38 x10EE3/UL Normal 0.80 - 2.80 [facility] Comment on above: Performed By: #### 2 76284 #### [place] [address] Lymphocytes/100 WBC (Bld) 31.0 % Normal 20.0 - 45.0 [facility] Comment on above: Performed By: #### 2 52922 #### [place] [id number] MANUAL DIFF N/A Normal [facility] Comment on above: Performed By: #### 2 42475 #### [facility],[address] [place] [address] MCH (RBC) [Entitic mass] 32 pg Normal 27 - 33 [facility] Comment on above: Performed By: #### 2 66155 #### [facility],[address] [place] [address] MCHC 36 X10 3 Normal 32 - 36 [facility] Comment on above: Performed By: #### 2 61082 #### [facility],[address] [place] [address] MCV (RBC) [Entitic vol] 88 fL Normal 80 - 99 [facility] Comment on above: Performed By: #### 2 44113 #### [facility],[address] [place] [address] [place]son # 0.26 x10EE3/UL Normal 0.20 - 1.00 [facility] Comment on above: Performed By: #### 2 37112 #### [facility],[address] [place] [address] MONOS % 5.9 % Normal 0.0 - 10.0 [facility] Comment on above: Performed By: #### 2 63598 #### [facility],[address] [place] [address] Morphology Eliezer (Bld) [Interp] N/A Normal [facility] Comment on above: Performed By: #### 2 95077 #### [facility],[address] [place] [address] Neut # 2.67 x10EE3/UL Normal 1.50 - 7.10 [facility] Comment on above: Performed By: #### 2 27996 #### [facility],[address] [place] [address] Neutrophils/100 WBC (Bld) 59.8 % Normal 46.0 - 76.0 [facility] Comment on above: Performed By: #### 2 39734 #### [facility],[address] [place] [address]25 PLATELET 259 x10EE3/UL Normal 150 - 450 [facility] Comment on above: Performed By: #### 2 99818 #### [facility],[address] [place] [address]187 Platelet mean volume (Bld) [Entitic vol] 7.6 fL Normal 6.6 - 10.5 [facility] Comment on above: Result Comment: AUTO MATED DIFFERENTIAL Performed By: #### 2 04852 #### [facility],[address] [place] [address]2376 RBC 4.43 x 10EE6/UL Normal 4.10 - 5.30 [facility] Comment on above: Performed By: #### 2 85414 #### [facility],[address] [place] [address]43 WBC 4.5 x 10EE3/UL Normal 4.5 - 10.8 [facility] Comment on above: Performed By: #### 2 90542 #### [facility],[address] [place] [address]1966 CMP with eGFRon 12-26-2024 AGE 74 years Normal [facility] Comment on above: Performed By: #### 2 19562 #### [facility],[address] [place] [address] 81382 Albumin [Mass/Vol] 3.9 g/dL Normal 3.4 - 5.0 [facility] Comment on above: Performed By: #### 2 14811 #### [facility],[address] [place] [address] 35925 Albumin/Globulin [Mass ratio] 1.3 {ratio} Normal 0.9 - 1.6 [facility] Comment on above: Performed By: #### 2 45913 #### [facility],[address] [place] [address] 74135 ALK PHOS 72 U/L Normal 46 - 116 [facility] Comment on above: Performed By: #### 2 31606 #### [facility],[address] [place] [address] 12757 ALT [Catalytic activity/Vol] 21 U/L Normal 16 - 63 [facility] Comment on above: Performed By: #### 2 99319 #### [facility],[address] [place], [place] [id number] Anion gap [Moles/Vol] 12 mmol/L Normal 10 - 20 [facility] Comment on above: Performed By: #### 2 62171 #### [facility],[address] [place], [place] [id number] AST [Catalytic activity/Vol] 19 U/L Normal 13 - 39 [facility] Comment on above: Performed By: #### 2 19809 #### [facility],[address] [place] [address]231 B/C RATIO 14 ratio Normal 0 - 30 [facility] Comment on above: Performed By: #### 2 82822 #### [facility],[address] [place] [address]33 Bilirubin [Mass/Vol] 0.6 mg/dL Normal 0.2 - 1.0 [facility] Comment on above: Performed By: #### 2 13197 #### [facility],[address] [place] [address] 82808 Calcium [Mass/Vol] 9.8 mg/dL Normal 8.5 - 10.1 [facility] Comment on above: Performed By: #### 2 91822 #### [facility],[address] [place] [address] 59386 Chloride [Moles/Vol] 104 mmol/L Normal 98 - 107 [facility] Comment on above: Performed By: #### 2 73547 #### [facility],[address] [place], [place] [address] CMP with eGFR Normal [facility] Comment on above: Result Comment: COMP REHENSIVE METABOLIC PANEL Performed By: #### 2 55947 #### [facility],[address] [place], [place] [address] CO2 [Moles/Vol] 29.9 mmol/L Normal 21.0 - 32.0 [facility] Comment on above: Performed By: #### 2 65910 #### [facility],[address] [place] [address] Creatinine [Mass/Vol] 0.77 mg/dL Normal 0.55 - 1.02 [facility] Comment on above: Performed By: #### 2 72930 #### [facility],[address] [place] [address] GFR/1.73 sq M.predicted among non-blacks MDRD (S/P/Bld) [Vol rate/Area] mL/min/{1.73_m2} Normal 60 - 999 [facility] Comment on above: Performed By: #### 2 55290 #### [facility],[address] [place] [address] Result Comment: ACCO RDING TO THE NATIONAL KIDNEY DISEASE EDUCATION PROGRAM(NKDE), A NORMAL eGFR IS A VALUE GREATER THAN OR EQUAL TO 60 ML/MIN/1.73 SQ METERS. CHRONIC KIDNEY DISEASE: <60mL/MIN/1.73 SQ METERS KIDNEY FAILURE: <15mL/MIN/1.73 SQ METERS THIS TEST SHOULD ONLY BE USED FOR PATIENTS 18 YEARS OF AGE AND OLDER. Globulin (S) [Mass/Vol] 3.1 g/dL Normal 1.5 - 3.8 [facility] Comment on above: Performed By: #### 2 35445 #### [facility],[address] [place], [place] [id number] Glucose [Mass/Vol] 99 mg/dL Normal 74 - 106 [facility] Comment on above: Performed By: #### 2 32239 #### [facility],[address] [place] [address] Potassium [Moles/Vol] 4.2 mmol/L Normal 3.5 - 5.1 [facility] Comment on above: Performed By: #### 2 68468 #### [facility],[address] [place] [address] 07258 Protein [Mass/Vol] 7.0 g/dL Normal 6.4 - 8.2 [facility] Comment on above: Performed By: #### 2 07240 #### [facility],[address] [place] [address]45 Sodium [Moles/Vol] 142 mmol/L Normal 136 - 145 [facility] Comment on above: Performed By: #### 2 42878 #### [facility],[address] [place] [address] 02927 Urea nitrogen [Mass/Vol] 11 mg/dL Normal 7 - 18 [facility] Comment on above: Performed By: #### 2 95729 #### [facility],[address] [place] [address] 68895 LIPID PROFILEon 12-26-2024 Cholesterol [Mass/Vol] 210 mg/dL Normal 0 - 240 [facility] Comment on above: Performed By: #### 2 27554 #### [facility],[address] [place] [address] Cholesterol in HDL [Mass/Vol] 73 mg/dL High 40 - 60 [facility] Comment on above: Performed By: #### 2 95243 #### [facility],[address] [place] [address] 73210 Cholesterol in LDL [Mass/Vol] 118 mg/dL Normal 0 - 129 [facility] Comment on above: Performed By: #### 2 15750 #### [facility],[address] [place] [address] 75665 Cholesterol.total/C holesterol in HDL [Mass ratio] 2.9 {ratio} Normal 0.0 - 5.0 [facility] Comment on above: Performed By: #### 2 17801 #### [facility],[address] [place] [address] 86921 Lipid 1996 panel Normal [facility] Comment on above: Result Comment: LIPI D PROFILE Performed By: #### 2 81968 #### [facility],[address] [place] [address] 50354 Triglyceride [Mass/Vol] 97 mg/dL Normal 0 - 150 [facility] Comment on above: Performed By: #### 2 93266 #### [facility],[address] [place] [address] 13795 TSHon 12-26-2024 TSH Qn 1.34 m[IU]/L Normal 0.35 - 3.74 [facility] Comment on above: Performed By: #### 2 73237 #### [facility],[address] [place] [address] 92912 VITAMIN D, 25 HYDROXYon 12-07 VitD 70.40 ng/mL Normal 30.00 - 100 [facility] Comment on above: Result Comment: 25-O HD3 indicates both endogenous production and supplementation. 25-OHD2 is an indicator of exogenous sources, such as diet or supplementation. Therapy is based on measurement of Total 25-OHD, with levels <20 ng/mL indicative of Vitamin D deficiency, while levels between 20 ng/mL and 30 ng/mL suggest insufficiency. Optimal levels are >=30ng/mL. Vitamin D, 25-OH D3 Not Established Vitamin D, 25-OH D2 Not Established Performed By: #### 2 32178 #### [facility],[address] [place] [address] 26966 LIPID PROFILEon 06-18-2024 Cholesterol [Mass/Vol] 228 mg/dL Normal 0 - 240 [facility] Comment on above: Performed By: #### 2 28707 #### [facility],[address] [place] [address] 66223 Cholesterol in HDL [Mass/Vol] 66 mg/dL High 40 - 60 [facility] Comment on above: Performed By: #### 2 19226 #### [facility],[address] [place] [address] 54108 Cholesterol in LDL [Mass/Vol] 141 mg/dL High 0 - 129 [facility] Comment on above: Performed By: #### 2 84854 #### [facility],[address] [place] [address] 47455 Cholesterol.total/C holesterol in HDL [Mass ratio] 3.5 {ratio} Normal 0.0 - 5.0 [facility] Comment on above: Performed By: #### 2 13102 #### [facility],[address] [place] [address] 82658 Lipid 1996 panel Normal [facility] Comment on above: Result Comment: LIPI D PROFILE Performed By: #### 2 84350 #### [facility],[address] [place] [address] 86664 Triglyceride [Mass/Vol] 103 mg/dL Normal 0 - 150 [facility] Comment on above: Performed By: #### 2 43924 #### [facility],[address] [place] [address] 12841 SCRN MAMM (CAD)W/TERRY BILATo n 06-13-2024 SCRN MAMM (CAD)W/TERRY BILAT [facility] [address] [place] [address] [id number] SCRN MAMM (CAD)W/TERRY BILAT MR#: [id number] Acct: [id number] Name: EMELI NASCIMENTO Rep #: [id number] : 1950 F 73 From: Fernando haile MD PCP: Dr. Cat Kimball MD Status: REG [facility] Study: SCRN MAMM (CAD)W/TERRY BILAT Date of Exam: 01/29 Exam# [id number] Ordering Dr: [place] [id number] MAMMOGRAPHY - BILATERAL SCREENING REASON FOR EXAM: Female, 73 years old. Routine annual screening examination. PERTINENT HISTORY: Sisters with breast cancer. TECHNIQUE: Digital bilateral breast terry (3D mammographic acquisition) in the CC and MLO projections. 2-D mediolateral oblique (MLO) and craniocaudad (CC) views of both breasts were obtained. CAD: Full Field Digital Mammography with Computer Added Detection was performed. COMPARISON: Comparison is made with prior study dated number 2022 and June 07, 2022. FINDINGS: Breast Composition: The breasts are almost entirely fatty. There are no dominant masses or suspicious calcifications. No other significant abnormalities are identified. There has been no significant change since the prior study. BI/SCRN MAMM (CAD)W/TERRY BILAT IMPRESSION: Stable bilateral screening mammogram. Yearly follow-up mammogram recommended. (A) ASSESSMENT CATEGORY: BIRADS Category 1: Negative. A letter regarding these results will be sent to the patient by the facility within 30 days. Approximately 10% of breast cancers are not detected by mammography. A normal mammogram should not delay biopsy of a clinically suspicious abnormality. [id number] Electronically Signed: Fernando Bullard MD at 10:17 EST Reading Location ID and State: [facility] / [place] , Service support , CC: Dr. Cat Kimball MD Comic Illustrator: Signed Normal [facility] Comprehensive metabolic 2000 panelon 06-03-2022 Albumin [Mass/Vol] 4.3 g/dL Normal 3.9-4.9 [facility] Comment on above: Order Comment: Speci men Type: BLOOD SPECIMEN Ordering Facility: [facility] Address: [address] [place], [place] [address] Performed By: #### 2 4323-8 #### [facility] CLIA [id number] [address] [place] [address] [place] ALP [Catalytic activity/Vol] 68 U/L Normal 34-123 [facility] Comment on above: Order Comment: Speci men Type: BLOOD SPECIMEN Ordering Facility: [facility] Address: [facility] [place] [address] Performed By: #### 2 4323-8 #### [facility] CLIA [id number] [address] [place] [address] [place] ALT [Catalytic activity/Vol] 15 U/L Normal 7-38 [facility] Comment on above: Order Comment: Speci men Type: BLOOD SPECIMEN Ordering Facility: [facility] Address: [facility] [place] [address] Performed By: #### 2 4323-8 #### [facility] CLIA [id number] [address] [place] [address] [place] Anion gap [Moles/Vol] 10 mmol/L Normal 9-18 [facility] Comment on above: Order Comment: Speci men Type: BLOOD SPECIMEN Ordering Facility: [facility] Address: [facility] [place] [address] Performed By: #### 2 4323-8 #### [facility] CLIA [id number] [address] [place] [address] [place] AST [Catalytic activity/Vol] 24 U/L Normal 13-35 [facility] Comment on above: Order Comment: Speci men Type: BLOOD SPECIMEN Ordering Facility: [facility] Address: [facility] [place] [address] Performed By: #### 2 4323-8 #### [facility] CLIA [id number] [address] [place] [id number] [place] Bilirubin [Mass/Vol] 0.5 mg/dL Normal 0.2-1.3 [facility] Comment on above: Order Comment: Speci men Type: BLOOD SPECIMEN Ordering Facility: [facility] Address: [address] [place] [place] [address] Performed By: #### 2 4323-8 #### [facility] CLIA [id number] [address] [place] [address] [place] Calcium [Mass/Vol] 10.1 mg/dL Normal 8.5-10.2 [facility] Comment on above: Order Comment: Speci men Type: BLOOD SPECIMEN Ordering Facility: [facility] Address: [address] [place] [address] Performed By: #### 2 4323-8 #### [facility] CLIA [id number] [address] [place] [address] [place] Chloride [Moles/Vol] 103 mmol/L Normal 97-105 [facility] Comment on above: Order Comment: Speci men Type: BLOOD SPECIMEN Ordering Facility: [facility] Address: [address] [place] [address] Performed By: #### 2 4323-8 #### [facility] CLIA [id number] [address] [place] [address] [place] CO2 [Moles/Vol] 27 mmol/L Normal 22-30 [facility] Comment on above: Order Comment: Speci men Type: BLOOD SPECIMEN Ordering Facility: [facility] Address: [address] [place] [address] Performed By: #### 2 4323-8 #### [facility] CLIA [id number] [address] [place] [address] [place] Creatinine [Mass/Vol] 0.69 mg/dL Normal 0.58-0.96 [facility] Comment on above: Order Comment: Speci men Type: BLOOD SPECIMEN Ordering Facility: [facility] Address: [address] [place] [address] Performed By: #### 2 4323-8 #### [facility] CLIA [id number] [address] [place] [id number] [place] ESTIMATED GLOMERULAR FILTRATION RATE 93 mL/min/1.73m??? Normal >=60 [facility] Comment on above: Order Comment: Mark keenan Type: BLOOD SPECIMEN Ordering Facility: [facility] Address: [address] [place] [address] Result Comment: Chanda mated Glomerular Filtration Rate (eGFR) is calculated using the 2020 CKD-EPI creatinine equation. This equation utilizes serum creatinine, sex, and age as parameters. The creatinine assay has traceable calibration to isotope dilution-mass spectrometry. Refer to KDIGO guidelines for clinical interpretation. In patients with unstable renal function, e.g. those with acute kidney injury, the eGFR may not accurately reflect actual GFR. Performed By: #### 2 4323-8 #### [facility] CLIA [id number] [address] [place] [address] [place] Glucose [Mass/Vol] 76 mg/dL Normal 74-99 [facility] Comment on above: Order Comment: Mark keenan Type: BLOOD SPECIMEN Ordering Facility: [facility] Address: [address] [place] [address] Result Comment: The [place] [employer] (ADA) provides guidance for cutoff values for fasting glucose and random glucose. The ADA defines fasting as no caloric intake for at least 8 hours. Fasting plasma glucose results between 100 to 125 mg/dL indicate increased risk for diabetes (prediabetes). Fasting plasma glucose results greater than or equal to 126 mg/dL meet the criteria for diagnosis of diabetes. In the absence of unequivocal hyperglycemia, results should be confirmed by repeat testing. In a patient with classic symptoms of hyperglycemia or hyperglycemic crisis, random plasma glucose results greater than or equal to 200 mg/dL meet the criteria for diagnosis of diabetes. Reference: Standards of Medical Care in Diabetes 2016, [place] [employer]. Diabetes Care. 2016.39(Suppl 1). Performed By: #### 2 4323-8 #### [facility] CLIA [id number] [address] [place] [id number] [place] Potassium [Moles/Vol] 4.1 mmol/L Normal 3.7-5.1 [facility] Comment on above: Order Comment: Speci men Type: BLOOD SPECIMEN Ordering Facility: [facility] Address: [facility] [place] [address] Performed By: #### 2 4323-8 #### [facility] CLIA [id number] [address] [place] [address] [place] Protein [Mass/Vol] 7.1 g/dL Normal 6.3-8.0 [facility] Comment on above: Order Comment: Speci men Type: BLOOD SPECIMEN Ordering Facility: [facility] Address: [facility] [place] [address] Performed By: #### 2 4323-8 #### [facility] CLIA [id number] [address] [place] [address] [place] Sodium [Moles/Vol] 140 mmol/L Normal 136-144 [facility] Comment on above: Order Comment: Speci men Type: BLOOD SPECIMEN Ordering Facility: [facility] Address: [facility] [place] [address] Performed By: #### 2 4323-8 #### [facility] CLIA [id number] [address] [place] [address] [place] Urea nitrogen [Mass/Vol] 10 mg/dL Normal 7-21 [facility] Comment on above: Order Comment: Speci men Type: BLOOD SPECIMEN Ordering Facility: [facility] Address: [facility] [place] [address] Performed By: #### 2 4323-8 #### [facility] CLIA [id number] [address] [place] [address] [place] 25-HYDROXY D2+D3on 2 25-hydroxyvitamin D3 [Mass/Vol] 62.7 ng/mL Normal 30.0-100.0 [facility] Comment on above: Order Comment: Speci men Type: BLOOD SPECIMEN Ordering Facility: [facility] Address: [address] [place] [id number] Result Comment: Defi cient: <20.1 ng/mL Insufficient: 20.1 - 29.9 ng/mL Sufficient: 30.0 - 100.0 ng/mL Toxic: >150.0 ng/mL Reference: She LARIOS, N Engl J Med (2007)[id number] This test was developed and its performance characteristics determined by the Pathology and Laboratory Medicine [place] at the [facility]. The U.S. Food and Drug Administration has not approved or cleared this test, however, FDA clearance or approval is not currently required for clinical use. Performed By: #### D 2D3 #### [facility] CLIA [id number] [address] [place] [address] [place] Vitamin D2 [Mass/Vol] <5.0 Normal [facility] Comment on above: Order Comment: Speci men Type: BLOOD SPECIMEN Ordering Facility: [facility] Address: [address] [place] [address] Performed By: #### D 2D3 #### [facility] CLIA [id number] [address] [place] [address] [place] Vitamin D3 [Mass/Vol] 62.7 ng/mL Normal [facility] Comment on above: Order Comment: Speci men Type: BLOOD SPECIMEN Ordering Facility: [facility] Address: [address] [place] [address] Performed By: #### D 2D3 #### [facility] CLIA [id number] [address] [place] [address] [place] 25-Hydroxy D2+D3on 1 25-Hydroxy D Total 90.1 ng/mL Normal 30.0-100.0 [facility] Comment on above: Performed By: #### D 2D3 #### [facility] Chemistry [address] [place] [address] 25-Hydroxy D2 <4.0 Normal [facility] Comment on above: Performed By: #### D 2D3 #### [facility] Chemistry [address] [place], [place] [address] 25-Hydroxy D3 90.1 ng/mL Normal [facility] Comment on above: Performed By: #### D 2D3 #### [facility] Chemistry [address] [place], [place] [address] Surgical Tissue Examon 01-22 Surgical Tissue Exam Test performed at [place] [address] NAME: EMELI NASCIMENTO REQUESTING: RHINA MONSALVE M.D. 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 NEGATIVE FOR DYSPLASIA. OPERATIVE PROCEDURE: EGD CLINICAL INFORMATION: Resendiz's esophagus and hiatal hernia GROSS DESCRIPTION: GE junction bx Received in formalin labeled gastroesophageal junction are multiple irregular shaped segments of sol white soft tissue aggregating to 1.5 x 1.0 x 0.2 cm. The specimen is totally submitted in formalin in one cassette. [facility]/kennedy RONDON M.D., PATHOLOGIST (Electronic signature on file) Signed out: 01/25/2020 13:19 PRINTED: 01/25/2020 Page 1 of 1 Normal [facility] Comment on above: Performed By: #### S URG #### [place] [address] Vital Signs Date Time Vital Sign Value Performing Clinician Faci lity 04-12-2025 11:21-0400 Diastolic blood pressure 69 mm[Hg] Rhina Monsalve MD Work Phone: [facility] 04-12-2025 11:21-0400 Respiratory rate 18 /min Rhina Monsalve MD Work Phone: [facility] 04-12-2025 11:21-0400 SaO2% (BldA) [Mass fraction] 98 % Rhina Monsalve MD Work Phone: [facility] 04-12-2025 11:21-0400 Systolic blood pressure 101 mm[Hg] Rhina Monsalve MD Work Phone: [facility] 04-12-2025 10:41-0400 Body temperature 96.8 [degF] Rhina Monsalve MD Work Phone: [facility] 04-12-2025 10:41-0400 Heart rate 74 /min Rhina Monsalve MD Work Phone: [facility] 04-12-2025 09:05-0400 Body height 157.5 cm Rhina Monsalve MD Work Phone: [facility] 04-12-2025 09:05-0400 Body mass index (BMI) [Ratio] 26.89 kg/m2 Rhina Monsalve MD Work Phone: [facility] 04-12-2025 09:05-0400 Body weight 66.68 kg Rhina Monsalve MD Work Phone: [facility] 03-23-2024 09:56-0400 Diastolic blood pressure 79 mm[Hg] Rhina Monsalve MD Work Phone: [facility] 03-23-2024 09:56-0400 Respiratory rate 16 /min Rhina Monsalve MD Work Phone: [facility] 03-23-2024 09:56-0400 SaO2% (BldA) [Mass fraction] 99 % Rhina Monsalve MD Work Phone: [facility] 03-23-2024 09:56-0400 Systolic blood pressure 106 mm[Hg] Rhina Monsalve MD Work Phone: [facility] 03-23-2024 09:26-0400 Body temperature 96.8 [degF] Rhina Monsalve MD Work Phone: [facility] 03-23-2024 09:26-0400 Heart rate 72 /min Rhina Monsalve MD Work Phone: [facility] 03-23-2024 07:59-0400 Body height 157.5 cm Rhina Monsalve MD Work Phone: [facility] 03-23-2024 07:59-0400 Body mass index (BMI) [Ratio] 26.89 kg/m2 Rhina Monsalve MD Work Phone: [facility] 03-23-2024 07:59-0400 Body weight 66.68 kg Rhina Monsalve MD Work Phone: [facility] 04-22-2023 09:00-0400 Diastolic blood pressure 76 mm[Hg] Rhina Monsalve MD Work Phone: [facility] 04-22-2023 09:00-0400 Respiratory rate 20 /min Rhina Monsalve MD Work Phone: [facility] 04-22-2023 09:00-0400 SaO2% (BldA) [Mass fraction] 96 % Rhina Monsalve MD Work Phone: [facility] 04-22-2023 09:00-0400 Systolic blood pressure 111 mm[Hg] Rhina Monsalve MD Work Phone: [facility] 04-22-2023 08:40-0400 Body temperature 97.7 [degF] Rhina Monsalve MD Work Phone: [facility] 04-22-2023 07:06-0400 Body height 157.5 cm Rhina Monsalve MD Work Phone: [facility] 04-22-2023 07:06-0400 Body weight 65.77 kg Rhina Monsalve MD Work Phone: [facility] 04-22-2023 07:06-0400 Heart rate 64 /min Rhina Monsalve MD Work Phone: [facility] 02-09-2023 08:49-0400 Body height 157.[address] [facility] 01-08-2022 11:52-0400 SaO2% (BldA) [Mass fraction] 98 % Rhina Monsalve MD Work Phone: [facility] 01-08-2022 11:42-0400 Diastolic blood pressure 69 mm[Hg] Rhina Monsalve MD Work Phone: [facility] 01-08-2022 11:42-0400 Respiratory rate 14 /min Rhina Monsalve MD Work Phone: [facility] 01-08-2022 11:42-0400 Systolic blood pressure 113 mm[Hg] Rhina Monsalve MD Work Phone: [facility] 01-08-2022 11:12-0400 Body temperature 97.3 [degF] Rhina Monsalve MD Work Phone: [facility] 01-08-2022 09:47-0400 Body height 157.5 cm Rhina Monsalve MD Work Phone: [facility] 01-08-2022 09:47-0400 Body weight 67.13 kg Rhina Monsalve MD Work Phone: [facility] 01-08-2022 09:47-0400 Heart rate 68 /min Rhina Monsalve MD Work Phone: [facility] Encounters Encounter Date Encounter Type Care Provider Facility Start: 06-25-2025 ambulatory Cat Kimball Facility: [facility] Start: 04-12-2025 ambulatory RHINA MONSALVE Facility:[facility] Start: 04-12-2025 End: 04-12-2025 Preprocedural examination done Rhina Monsalve MD Work Phone: [facility] Start: 04-12-2025 End: 04-12-2025 Subsequent hospital visit by physician Rhina Monsalve MD Work Phone: [facility] Comment on above: Resendiz's esophagus without dysplasia [K22.70] Start: 04-03-2025 End: 04-03-2025 Telephone encounter Rhina Monsalve MD Work Phone: [facility] Comment on above: Future Appointment ( EGD & colonoscopy scheduled 04/12/25 at [facility]) Start: 02-26-2025 End: 02-26-2025 Orders Only Rhina Monsalve MD Work Phone: [facility] Comment on above: Resendiz's esophagus without dysplasia (Primary Dx) Encounter for screen ing colonoscopy (Primary Dx) Start: 02-12-2025 End: 02-12-[address] Cat Kimball MD Work Phone: -Outpatient Bone Densitometry Start: 02-12-2025 End: 02-12-[address] Cat Kimball MD -Outpatient Bone Densitometry Work Phone: Start: 02-12-2025 End: 02-12-2025 ambulatory [facility] Facility:[facility] [place] Start: 12-26-2024 End: 12-26-2024 ambulatory CAT KIMBALL [facility] Start: 06-18-2024 End: 06-18-2024 ambulatory CAT WANGAngeles [facility] Start: 06-13-2024 End: 06-13-2024 ambulatory [facility] Facility:[facility] Start: 03-29-2024 End: 03-29-2024 Telephone encounter Rhina Monsalve MD Work Phone: [facility] Comment on above: Results Start: 03-23-2024 End: 03-23-2024 Preprocedural examination done Rhina Monsalve MD Work Phone: [facility] Work Phone: Start: 03-23-2024 End: 03-23-2024 Subsequent hospital visit by physician Rhina Monsalve MD Work Phone: [facility] Comment on above: Resendiz's esophagus without dysplasia [K22.70] Start: 03-08-2024 Orders Only Rhina Monsalve MD Work Phone: [facility] Comment on above: Resendiz's esophagus without dysplasia (Primary Dx) Start: 06-08-2023 End: 06-08-2023 ambulatory [facility] Work Phone: Start: 06-08-2023 End: 06-08-2023 Patient encounter procedure [facility]-Outpatient Breast Imaging Work Phone: Start: 04-28-2023 Telephone encounter Rhina Monsalve MD Work Phone: [facility] Comment on above: Results Start: 04-22-2023 Encounter for other preprocedural examination RHINA MONSALVE [facility] Start: 04-22-2023 End: 04-22-2023 Preprocedural examination done Rhina Monsalve MD Work Phone: [facility] Start: 04-22-2023 End: 04-22-2023 Subsequent hospital visit by physician Rhina Monsalve MD Work Phone: [facility] Comment on above: Resendiz's esophagus without dysplasia [K22.70] Start: 02-10-2023 Orders Only Rhina Monsalve MD Work Phone: [facility] Comment on above: Resendiz's esophagus without dysplasia (Primary Dx) Start: 02-09-2023 End: 02-09-2023 ambulatory [facility] Work Phone: Start: 02-09-2023 End: 02-09-2023 Patient encounter procedure [facility] [place]-Outpatient Bone Densitometry Work Phone: Start: 06-07-2022 End: 06-07-2022 ambulatory [facility] Work Phone: Start: 06-07-2022 End: 06-07-2022 Patient encounter procedure [facility] [place]-Outpatient Breast Imaging Start: 01-08-2022 End: 01-08-2022 Subsequent hospital visit by physician Rhina Monsalve MD Work Phone: [facility] Comment on above: Resendiz's esophagus without dysplasia [K22.70] Procedures Date Procedure Procedure Detail Performing Clinician Start: 02-12-2025 Dual energy X-ray absorptiometry Dr. Cat Kimball MD Work Phone: Start: 06-08-2023 Screening mammography Start: 02-09-2023 Dual energy X-ray absorptiometry Start: 06-07-2022 Screening mammography Start: 05-02-2015 Colonoscopy Rhina harrell MD Work Phone: Start: 05-31-2012 Mammography Rhina harrell MD Work Phone: Start: 07-17-2010 Lipid 1996 panel - S stu or Plasma Rhina Monsalve MD Work Phone: Start: 08-30-2008 Colonoscopy Rhina harrell MD Work Phone: Plan of Treatment Date Care Activity Detail Author Start: 2026 RSV Vaccine (1 - 1-d ose 75+ series) RSV Vaccine (1 - 1-dose 75+ series) [facility] Start: 06-03-2025 [facility]ABET[facility]CRE[facility] Start: 06-03-2025 Diabetes Screening Diabetes Screenin g [facility] Start: 05-02-2025 Colonoscopy Colonoscopy [facility] Start: 05-02-2025 Colorectal Cancer Screening Colorectal Cancer Screening [facility] Start: 05-02-2025 Screening for malign ant neoplasm of colon [facility] Start: 04-12-2025 End: 04-12-2025 Patient encounter procedure 04/12/2025 10:00 AM EDT Appointment [facility] [address] [place] [address] [facility]ve [facility] [address] [place] [address] update 2nd ins// [facility] Comment on above: update 2nd ins// Start: 04-08-2025 Influenza vaccination Influenza Vacc ine (#1) [facility] Start: 08-08-2024 Advance Directive Discussion Advance Directive Discussion [facility] Start: 04-08-2024 Influenza vaccination Influenza Vacc ine (#1) [facility] Start: 03-23-2024 End: 03-08-2025 EGD DIAGNOSTIC EGD DIAGNOSTIC Endoscopy Routine Resendiz's esophagus without dysplasia Expected: 03/23/2024, Expires: 03/08/2025 [facility] Comment on above: Expected: 03/23/2024 , Expires: 03/08/2025 Start: 03-23-2024 End: 03-23-2024 Patient encounter procedure 03/23/2024 9:00 AM EDT Appointment [facility] [address] [place] [address] [facility] Start: 08-08-2023 Advance Directive Discussion Advance Directive Discussion [facility] Start: 04-22-2023 End: 02-11-2024 EGD DIAGNOSTIC EGD DIAGNOSTIC Endoscopy Routine Resendiz's esophagus without dysplasia Expected: 04/22/2023, Expires: 02/11/2024 [facility] Work Phone: Comment on above: Expected: 04/22/2023 , Expires: 02/11/2024 Start: 04-08-2023 Covid-19 Vaccine ( season) Covid-19 Vaccine ( season) [facility] Start: 04-08-2023 Influenza vaccination C [facility] Start: 08-08-2022 ADVANCE DIRECTIVE DISCUSSION ADVANCE DIRECTIVE DISCUSSION [facility] Start: 08-08-2022 DEPRESSION ASSESSMENT DEPRESSION ASS ESSMENT [facility] Start: 04-08-2022 Influenza vaccination INFLUENZ A (Season Ended) [facility] Start: 08-08-2021 ADVANCE DIRECTIVE DISCUSSION ADVANCE DIRECTIVE DISCUSSION [facility] Start: 08-30-2018 Colonoscopy COLONOSCOPY [facility] Start: 08-30-2018 COLORECTAL CANCER SCREENING COLORECTAL CANCER SCREENING [facility] Start: 2016 BONE DENSITY BONE DENSITY [facility] Start: 2016 Bone Density Screening Bone Density Screening [facility] Start: 2016 Pneumococcal Vaccine : 65+ (1 - PCV) Pneumococcal Vaccine: 65+ (1 - PCV) [facility] Start: 2016 Pneumococcal Vaccine : 65+ (1 of 1 - PCV) Pneumococcal Vaccine: 65+ (1 of 1 - PCV) [facility] Start: 2016 PNEUMOCOCCAL: 65+ (1 - PCV) PNEUMOCOCCAL: 65+ (1 - PCV) [facility] Start: 2016 Screening for osteoporosis Bone Density Screening [facility] Start: 07-08-2016 Medicare Annual Well ness Visit Medicare Annual Wellness Visit [facility] Start: 07-17-2015 Lipid 1996 panel - S stu or Plasma Lipid Screening [facility] Start: 07-17-2015 Lipid panel [facility] Screening [facility] Start: 07-17-2015 LIPID SCREEN LIPID SCREEN [facility] Start: 07-08-2013 DIABETES SCREEN DIABETES SCREEN [facility] Start: 05-31-2013 Mammography [facility] Start: 05-31-2013 Screening for malign ant neoplasm of breast Mammogram Screening [facility] Start: 2011 RSV Vaccine (1 - 1-d ose 60+ series) RSV Vaccine (1 - 1-dose 60+ series) [facility] Start: 2001 Pneumococcal Vaccine : 50+ (1 of 1 - PCV) Pneumococcal Vaccine: 50+ (1 of 1 - PCV) [facility] Start: 2001 SHINGRIX VACCINE (1 of 2) SHINGRIX VACCINE (1 of 2) [facility] Start: 1996 COLOGUARD (FIT-DNA) COLOGUARD (FIT-D NA) [facility] Start: [address] COLONOGRAPHY [facility] Start: 1996 FECAL OCCULT BLOOD FECAL OCCULT BLOO D [facility] Start: 1996 Screening for malign ant neoplasm of colon [facility] Start: 1996 SIGMOIDOSCOPY SIGMOIDOSCOPY [facility] Start: 1970 Urine microalbumin profile [facility] Start: 1969 Anxiety Screening Anxiety Screening [facility] Start: 1969 Depression Screening Depression Scre ening [facility] Start: 1969 HEPATITIS C SCREENING HEPATITIS C [facility] Start: 1969 Hepatitis C screening Hepatitis C [facility] Start: 1963 Adult depression screening assessment DEPRESSION SCREENING [facility] Start: 1956 COVID-19 VACCINE (#1) COVID-19 VACCI NE (#1) [facility] Start: 01-13-1952 COVID-19 VACCINE (#1) COVID-19 VACCI NE (#1) [facility] End: 01-08-2022 EGD DIAGNOSTIC EGD DIAGNOSTIC Endoscopy Routine Resendiz's esophagus without dysplasia 1 Occurrences starting 01/08/2022 until 01/08/2022 [facility] Work Phone: Comment on above: 1 Occurrences starti ng 01/08/2022 until 01/08/2022 End: 02-26-2026 EGD DIAGNOSTIC EGD DIAGNOSTIC Endoscopy Routine Resendiz's esophagus without dysplasia 1 Occurrences starting 02/26/2025 until 02/26/2026 [facility] Comment on above: 1 Occurrences starti ng 02/26/2025 until 02/26/2026 EGD DIAGNOSTIC EGD DIAGNOSTIC Endoscopy Routine Resendiz's esophagus without dysplasia 04/12/2025 10:40 AM EDT [facility] H&P for surgery H&P FOR SURGERY Procedures Routine Resendiz's esophagus without dysplasia Ordered: 02/10/2023 [facility] Work Phone: Comment on above: Ordered: 02/10/2023 H&P for surgery H&P FOR SURGERY Procedures Routine Resendiz's esophagus without dysplasia Ordered: 03/08/2024 [facility] Work Phone: Comment on above: Ordered: 03/08/2024 H&P for surgery H&P FOR SURGERY Procedures Routine Resendiz's esophagus without dysplasia Ordered: 02/26/2025 [facility] Work Phone: Comment on above: Ordered: 02/26/2025 End: 02-26-2026 Screening colonoscopy COLONOSCOPY SCREENING Endoscopy Routine Encounter for screening colonoscopy 1 Occurrences starting 02/26/2025 until 02/26/2026 [facility] Work Phone: Comment on above: 1 Occurrences starti ng 02/26/2025 until 02/26/2026 Screening colonoscopy COLONOSCOP Y SCREENING Endoscopy Routine Encounter for screening colonoscopy 04/12/2025 10:40 AM EDT [facility] SURGICAL PATHOLOGY [facility] Work Phone: Comment on above: Release Upon Orderin g for 1 Occurrences starting 01/08/2022 SURGICAL PATHOLOGY [facility] Work Phone: Comment on above: Release Upon Orderin g for 1 Occurrences starting 04/22/2023 SURGICAL PATHOLOGY [facility] Work Phone: Comment on above: Release Upon Orderin g for 1 Occurrences starting 03/23/2024 Tissue Pathology bio psy report [facility] Work Phone: Comment on above: Release Upon Orderin g for 1 Occurrences starting 04/12/2025 [facility] Immunizations Immunization Date Immunization Notes Care Provider Fa [facility] 05-22-2011 influenza virus vacc ine, unspecified formulation Rhina Monsalve MD Work Phone: [facility] Payers Date Payer Category Payer Private Health Insurance [id number] 2024 Self-pay [id number] 2024 Private Health Insurance CLI [id number] 2020 Private Health Insurance LETICIA SCOTT MEDICARE SUPPLEMENT [id number] 2020-Present [phone] [address] [address] [place] [address] Indemnity [id number] 2020 Private Health Insurance [id number] 2016 Medicare MEDICARE MEDICAR E A AND B [id number] 2016-Present [phone] [place] [address] Medicare [id number] 2016 Medicare [id number] 2016 Medicare [id number] 1950 Unknown [id number] 1950 Unknown [id number] Unknown [id number] Unknown [id number] Unknown [id number] Social History Date Type Detail [facility] Work Phone: Start: 01-08-2022 End: 04-12-2025 Alcohol intake Current drinker of alcohol (finding) [facility] Start: 01-27-2018 History SDOH Alcohol Comment 1 x month [facility] Start: 1950 Sex Assigned At Not on file [facility] Start: 12-29-2021 End: 01-08-2022 Exposure to SARS-CoV-2 (event) Not sure [facility] Start: 1950 Sex Assigned At Female [facility] Start: 07-13-2020 End: 04-22-2023 History of Social function [facility] Start: 07-13-2020 End: 04-22-2023 Tobacco use panel [facility] Work Phone: Start: 07-09-2012 National Score (1-10 0), lower number is lower risk Not on file [facility] Tobacco smoking stat us UTIS Unknown if ever smoked [facility] Work Phone: How often to you hav e a drink containing alcohol? Monthly or less [facility] Functional Status Date Assessment Result Facility [facility] Clinical Notes 07-22-2008 to 04-12-2025 Erica Donovan RN - 04/12/2025 11:39 AM EDErica Lugo RN - 04/12/2025 11:39 AM EDErica Lugo RN - 04/12/2025 10:54 AM Erica Palmer RN - 04/12/2025 10:54 AM EDT Note Date & Type Note Facility 04-12-2025 Note HNO ID: [id number] Author: ERICA DONOVAN RN Service: Nursing Author Type: Registered Nurse Type: Nursing Progress Note Filed: 04/12/2025 13:07 Note Text: Pt dressed independently. Pt d/cd from PACU in stable condition. [facility] 04-12-2025 Nurse Note Pt dressed independently. Pt d/cd from PACU in stable condition. [facility] 04-12-2025 Nurse Note Pt dressed independently. Pt d/cd from PACU in stable condition. Dr. Monsalve at the beside to update pt. documented in this encounter [facility] 04-12-2025 Note HNO ID: [id number] Author: ERICA DONOVAN RN Service: Nursing Author Type: Registered Nurse Type: Nursing Progress Note Filed: 04/12/2025 10:55 Note Text: Dr. Monsalve at the beside to update pt. [facility] 04-12-[address] Monsalve at the beside to update pt. [facility] 04-12-2025 Attending History and physical note UPDATED HISTORY AND PHYSICAL EXAMINATION SERVICE DATE: 04/12/2025 SERVICE TIME: 9:42 AM PHYSICAL EXAM MUST BE COMPLETED ON ADMISSION The History and Physical (completed in the past 30 days) has been reviewed and the patient has been examined. The contents accurately reflect the patient's condition with the following additions or revisions since the H&P was completed. Examination indicates no changes. LUNGS: equal chest rise bilaterally, no increased work of breathing CARDIAC: regular rate, warm extremities Provisional Diagnosis/Treatment Plan: * No procedures listed * EGD and colonoscopy This H&P can be found in the attached. SIGNATURE: Dora Arriaga DO PATIENT NAME: Emeli Nascimento DATE: April 12, 2025 TIME: 9:42 AM Cosigned by Rhina Monsalve MD at 04/12/2025 12:23 PM EDT Associated attestation - Rhina Monsalve MD - 04/12/2025 12:23 PM EDT I saw and evaluated the patient. Discussed with the resident and agree with resident's findings and plan as documented in the resident's note. Source Note - Suzanne Espinosa APRN.NAOMI - 04/12/2025 10:00 AM EDT HISTORY AND PHYSICAL EXAMINATION Emeli Mast 1950 SERVICE DATE: 04/12/2025 SERVICE TIME: 9:16 AM PRIMARY CARE PHYSICIAN: Cat Kimball MD SURGEON: Dr Monsalve ANESTHESIA: MAC DIAGNOSIS: Resendiz's esophagus without dysplasia [K22.70] Encounter for screening colonoscopy [Z12.11] PROCEDURE: EGD and colonoscopy Subjective CHIEF COMPLAINT: Resendiz's esophagus The reason for this visit is to perform a comprehensive review of the patient's past medical history, assess their current health status and obtain any additional testing required based on anesthesia guidelines. We will also identify any potential anesthesia problems or contraindications to the planned procedure. HPI: This is a 74 year old female who presents with hx Resendiz's esophagus. GERD on carafate and omeprazole still occasional symptoms depending on her food intake. Denies changes in bowel habits, no hematochezia or melena, no abdominal pain. Last colonoscopy 2014, EGD 03/2024. Family hx sister colon cancer in her 70s Family hx breast cancer, renal cancer, brain cancer. Last colonoscopy METS: Climb a flight of stairs or walk up a hill (5.50 METs) FUNCTIONAL STATUS: Independent PAST MEDICAL HISTORY Diagnosis Date Resendiz's esophageal ulceration Resendiz's esophagus with low grade dysplasia 2012 & 05/02/2015 Diverticulitis of colon without hemorrhage GERD (gastroesophageal reflux disease) H. pylori infection Hemorrhage of rectum and anus Hemorrhoids without complication Hypercholesteremia 03/23/2024 Hypersomnia Malaise and fatigue Migraine w/o mgn w/o status migrainousus OAB (overactive bladder) PMH - PAST MEDICAL HISTORY OF PROLAPSED BLADDER Unspecified urinary incontinence USI and occ urgency Varicose veins of right lower extremity with pain PAST SURGICAL HISTORY Procedure Laterality Date BREAST BIOPSY 09/01/2004 benign COLONOSCOPY 05/02/2015 Dr. Bryson due in 2024 COLPOSCOPY CERVIX UPPER/ADJACENT VAGINA 1992 Colposcopy Cervicitis only No treatment EGD 02/11/2016 EGD EGD WITH BIOPSY(S) 02/09/2017 EGD WITH BIOPSY(S) 01/27/2018 intestinal metaplasia EGD WITH BIOPSY(S) 12/08/2018 intestinal metaplasia EGD WITH BIOPSY(S) 01/23/2020 Resendiz's without dysplasia; Dr. Monsalve EGD WITH BIOPSY(S) 01/09/2021 Resendiz's without dysplasia; Dr. Monsalve EGD WITH BIOPSY(S) 04/22/2023 Resendiz's without dysplasia; Dr. Monsalve EGD WITH BIOPSY(S) 03/23/2024 neg for Resendiz's; Dr. Monsalve ESOPHAGOSCOPY FLEX TRANSORAL LESION ABLATION 06/18/2015 RFA #1 ESOPHAGOSCOPY FLEX TRANSORAL LESION ABLATION 12/03/2015 RFA #2 HYSTERECTOMY 2012 LIGATE FALLOP[place] TUBE FAMILY HISTORY Problem Relation Age of Onset Heart Mother CONGESTIVE HEART FAILURE Cancer Father nasal tumor other (brain tumor) Brother other (brain tumor) Sister Cancer Brother melanoma Breast Cancer Sister Cancer Brother brain tumor Breast Cancer Sister Colon Cancer Sister other (kidney cancer) Sister SOCIAL HISTORY[1] Prior to Admission medications as of 04/12/25 0930 Medication Sig Last Dose Taking calcium carbonate/vitamin D3 (CALCIUM 600 + D,3, ORAL) Take by mouth once daily. 04/05/2025 Yes cholecalciferol, vitamin D3, (VITAMIN D3 ORAL) Take by mouth once daily. 04/05/2025 Yes omeprazole (PRILOSEC) 20 mg capsule Take 20 mg by mouth twice daily. 04/12/2025 at 7:00 AM Yes sucralfate (CARAFATE) 1 gram tablet Take 1 g by mouth twice daily. As needed 04/12/2025 at 7:00 AM Yes BABY ASPIRIN ORAL Take 81 mg by mouth once daily. ALLERGIES No Known Allergies COMPLETE REVIEW OF SYSTEMS: GENERAL: No weight loss, malaise or fevers RESPIRATORY: Negative for cough, hemoptysis, wheezing, COPD, dyspnea or shortness of breath Cardiac: Negative for chest pain, leg swelling, hypertension, CHF or palpitations GI: No nausea, vomiting, or diarrhea and See HPI : OAB MUSCULOSKELETAL: bilateral knee pain PSYCH: Negative for sleep disturbance, mood disorder and recent psychosocial stressors ENDOCRINE:Denies diabetes and thyroid problems NEURO: No Hx seizures, tremors or CVA, hx migraines Heme/OnNo hx blood clots, clotting disorders, or cancer Objective PHYSICAL EXAM: 04/12/25 09 BP: 114/72 Pulse: 74 Temp: 36.6 C (97.9 F) TempSrc: Temporal Artery SpO2: 97% Weight: 66.7 kg (147 lb) Height: 157.5 cm (5' 2) Body mass index is 26.89 kg/m . MENTAL STATUS: alert, oriented to person, place and time HEENT: Normocephalic/atraumatic LUNGS: Lungs clear to auscultation, Good diaphragmatic excursion CARDIAC: Normal S1 and S2; no rubs, murmurs, or gallops ABDOMEN: Soft, nontender EXTREMITIES: Extremities normal, no deformities, edema, clubbing or skin discoloration. Good capillary refill. Diagnostic tests reviewed for today's visit: Lab Value Units Date High Low HB No results within date range. HCT No results within date range. WBC No results within date range. PLT No results within date range. NA No results within date range. K No results within date range. GLUC No results within date range. BUN No results within date range. CREAT No results within date range. PTSEC No results within date range. INR No results within date range. APTT No results within date range. ALT No results within date range. AST No results within date range. TBILI No results within date range. TSH No results within date range. Lab Value Units Date High Low HCGQT No results within date range. UHCG No results within date range. HCG, BODY* No results within date range. Lab Value Units Date High Low ABORHD No results within date range. ABSCREEN No results within date range. No results found for: HBA1C Assessment/Plan ANESTHESIA FINDINGS: Intubation History: No history of difficult intubation Significant Anesthesia Considerations: None FAMILY PROBLEMS WITH ANESTHESIA: no history of adverse anesthetic event Patient has the following medical conditions Problem List Items Addressed This Visit Gastrointestinal Resendiz's esophagus without dysplasia EGD 03/23/2024 Scheduled for EGD 04/12/2025 Relevant Orders EGD DIAGNOSTIC Other Preop examination - Primary Other Visit Diagnoses Encounter for screening colonoscopy Relevant Orders COLONOSCOPY SCREENING Pre-op testing: Medical conditions which may affect the maya-operative course were addressed in the visit today. PLAN Procedure Diagnosis: Resendiz's esophagus without dysplasia [K22.70] Encounter for screening colonoscopy [Z12.11] Planned Procedure: EGD and colonoscopy Planned Anesthetic: MAC I spent a total of 20 minutes on the date of the service which included preparing to see the patient, [id number] patient care, completing clinical documentation, obtaining and/or reviewing separately obtained history, and performing a medically appropriate examination. SIGNATURE: Suzanne Espinosa APRN.CNP PATIENT NAME: Emeli Nascimento DATE: April 12, 2025 TIME: 9:16 AM PAGER/CONTACT #: [1] Social History Tobacco Use Smoking status: Never Smokeless tobacco: Never Vaping Use Vaping status: Never Used Substance Use Topics Alcohol use: Yes Comment: 1 x month Drug use: No [facility] Work Phone: 04-12-2025 History and physical note HISTORY AND PHYSICAL EXAMINATION Emeli Nascimento 1950 SERVICE DATE: 04/12/2025 SERVICE TIME: 9:16 AM PRIMARY CARE PHYSICIAN: Cat Kimball MD SURGEON: Dr Monsalve ANESTHESIA: MAC DIAGNOSIS: Resendiz's esophagus without dysplasia [K22.70] Encounter for screening colonoscopy [Z12.11] PROCEDURE: EGD and colonoscopy Subjective CHIEF COMPLAINT: Resendiz's esophagus The reason for this visit is to perform a comprehensive review of the patient's past medical history, assess their current health status and obtain any additional testing required based on anesthesia guidelines. We will also identify any potential anesthesia problems or contraindications to the planned procedure. HPI: This is a 74 year old female who presents with hx Resendiz's esophagus. GERD on carafate and omeprazole still occasional symptoms depending on her food intake. Denies changes in bowel habits, no hematochezia or melena, no abdominal pain. Last colonoscopy 2014, EGD 03/2024. Family hx sister colon cancer in her 70s Family hx breast cancer, renal cancer, brain cancer. Last colonoscopy METS: Climb a flight of stairs or walk up a hill (5.50 METs) FUNCTIONAL STATUS: Independent PAST MEDICAL HISTORY Diagnosis Date Resendiz's esophageal ulceration Resendiz's esophagus with low grade dysplasia 2012 & 05/02/2015 Diverticulitis of colon without hemorrhage GERD (gastroesophageal reflux disease) H. pylori infection Hemorrhage of rectum and anus Hemorrhoids without complication Hypercholesteremia 03/23/2024 Hypersomnia Malaise and fatigue Migraine w/o mgn w/o status migrainousus OAB (overactive bladder) PMH - PAST MEDICAL HISTORY OF PROLAPSED BLADDER Unspecified urinary incontinence USI and occ urgency Varicose veins of right lower extremity with pain PAST SURGICAL HISTORY Procedure Laterality Date BREAST BIOPSY 09/01/2004 benign COLONOSCOPY 05/02/2015 Dr. Bryson due in 2024 COLPOSCOPY CERVIX UPPER/ADJACENT VAGINA 1992 Colposcopy Cervicitis only No treatment EGD 02/11/2016 EGD EGD WITH BIOPSY(S) 02/09/2017 EGD WITH BIOPSY(S) 01/27/2018 intestinal metaplasia EGD WITH BIOPSY(S) 12/08/2018 intestinal metaplasia EGD WITH BIOPSY(S) 01/23/2020 Resendiz's without dysplasia; Dr. Monsalve EGD WITH BIOPSY(S) 01/09/2021 Resendiz's without dysplasia; Dr. Monsalve EGD WITH BIOPSY(S) 04/22/2023 Resendiz's without dysplasia; Dr. Monsalve EGD WITH BIOPSY(S) 03/23/2024 neg for Resendiz's; Dr. Monsalve ESOPHAGOSCOPY FLEX TRANSORAL LESION ABLATION 06/18/2015 RFA #1 ESOPHAGOSCOPY FLEX TRANSORAL LESION ABLATION 12/03/2015 RFA #2 HYSTERECTOMY 2013 LIGATE [place] TUBE FAMILY HISTORY Problem Relation Age of Onset Heart Mother CONGESTIVE HEART FAILURE Cancer Father nasal tumor other (brain tumor) Brother other (brain tumor) Sister Cancer Brother melanoma Breast Cancer Sister Cancer Brother brain tumor Breast Cancer Sister Colon Cancer Sister other (kidney cancer) Sister SOCIAL HISTORY[1] Prior to Admission medications as of 04/12/25 0930 Medication Sig Last Dose Taking calcium carbonate/vitamin D3 (CALCIUM 600 + D,3, ORAL) Take by mouth once daily. 04/05/2025 Yes cholecalciferol, vitamin D3, (VITAMIN D3 ORAL) Take by mouth once daily. 04/05/2025 Yes omeprazole (PRILOSEC) 20 mg capsule Take 20 mg by mouth twice daily. 04/12/2025 at 7:00 AM Yes sucralfate (CARAFATE) 1 gram tablet Take 1 g by mouth twice daily. As needed 04/12/2025 at 7:00 AM Yes BABY ASPIRIN ORAL Take 81 mg by mouth once daily. ALLERGIES No Known Allergies COMPLETE REVIEW OF SYSTEMS: GENERAL: No weight loss, malaise or fevers RESPIRATORY: Negative for cough, hemoptysis, wheezing, COPD, dyspnea or shortness of breath Cardiac: Negative for chest pain, leg swelling, hypertension, CHF or palpitations GI: No nausea, vomiting, or diarrhea and See HPI : OAB MUSCULOSKELETAL: bilateral knee pain PSYCH: Negative for sleep disturbance, mood disorder and recent psychosocial stressors ENDOCRINE:Denies diabetes and thyroid problems NEURO: No Hx seizures, tremors or CVA, hx migraines Heme/OnNo hx blood clots, clotting disorders, or cancer Objective PHYSICAL EXAM: 04/12/25 0905 BP: 114/72 Pulse: 74 Temp: 36.6 C (97.9 F) TempSrc: Temporal Artery SpO2: 97% Weight: 66.7 kg (147 lb) Height: 157.5 cm (5' 2) Body mass index is 26.89 kg/m . MENTAL STATUS: alert, oriented to person, place and time HEENT: Normocephalic/atraumatic LUNGS: Lungs clear to auscultation, Good diaphragmatic excursion CARDIAC: Normal S1 and S2; no rubs, murmurs, or gallops ABDOMEN: Soft, nontender EXTREMITIES: Extremities normal, no deformities, edema, clubbing or skin discoloration. Good capillary refill. Diagnostic tests reviewed for today's visit: Lab Value Units Date High Low HB No results within date range. HCT No results within date range. WBC No results within date range. PLT No results within date range. NA No results within date range. K No results within date range. GLUC No results within date range. BUN No results within date range. CREAT No results within date range. PTSEC No results within date range. INR No results within date range. APTT No results within date range. ALT No results within date range. AST No results within date range. TBILI No results within date range. TSH No results within date range. Lab Value Units Date High Low HCGQT No results within date range. UHCG No results within date range. HCG, BODY* No results within date range. Lab Value Units Date High Low ABORHD No results within date range. ABSCREEN No results within date range. No results found for: HBA1C Assessment/Plan ANESTHESIA FINDINGS: Intubation History: No history of difficult intubation Significant Anesthesia Considerations: None FAMILY PROBLEMS WITH ANESTHESIA: no history of adverse anesthetic event Patient has the following medical conditions Problem List Items Addressed This Visit Gastrointestinal Resendiz's esophagus without dysplasia EGD 03/23/2024 Scheduled for EGD 04/12/2025 Relevant Orders EGD DIAGNOSTIC Other Preop examination - Primary Other Visit Diagnoses Encounter for screening colonoscopy Relevant Orders COLONOSCOPY SCREENING Pre-op testing: Medical conditions which may affect the maya-operative course were addressed in the visit today. PLAN Procedure Diagnosis: Resendiz's esophagus without dysplasia [K22.70] Encounter for screening colonoscopy [Z12.11] Planned Procedure: EGD and colonoscopy Planned Anesthetic: MAC I spent a total of 20 minutes on the date of the service which included preparing to see the patient, [id number] patient care, completing clinical documentation, obtaining and/or reviewing separately obtained history, and performing a medically appropriate examination. SIGNATURE: Suzanne Esipnosa APRN.CNP PATIENT NAME: Emeli Nascimento DATE: April 12, 2025 TIME: 9:16 AM PAGER/CONTACT #: [1] Social History Tobacco Use Smoking status: Never Smokeless tobacco: Never Vaping Use Vaping status: Never Used Substance Use Topics Alcohol use: Yes Comment: 1 x month Drug use: No [facility] 04-12-2025 History and physical note UPDATED HISTORY AND PHYSICAL EXAMINATION SERVICE DATE: 04/12/2025 SERVICE TIME: 9:42 AM PHYSICAL EXAM MUST BE COMPLETED ON ADMISSION The History and Physical (completed in the past 30 days) has been reviewed and the patient has been examined. The contents accurately reflect the patient's condition with the following additions or revisions since the H&P was completed. Examination indicates no changes. LUNGS: equal chest rise bilaterally, no increased work of breathing CARDIAC: regular rate, warm extremities Provisional Diagnosis/Treatment Plan: * No procedures listed * EGD and colonoscopy This H&P can be found in the attached. SIGNATURE: Dora Arriaga DO PATIENT NAME: Emeli Nascimento DATE: April 12, 2025 TIME: 9:42 AM Cosigned by Rhina Monsalve MD at 04/12/2025 12:23 PM EDT Associated attestation - Rhina Monsalve MD - 04/12/2025 12:23 PM EDT I saw and evaluated the patient. Discussed with the resident and agree with resident's findings and plan as documented in the resident's note. Source Note - Suzanne Espinosa, [employer]OKE SETTER.PREDATORY ANIMAL HUNTER - 04/12/2025 10:00 AM EDT HISTORY AND PHYSICAL EXAMINATION Emeli Nascimento 1950 SERVICE DATE: 04/12/2025 SERVICE TIME: 9:16 AM PRIMARY CARE PHYSICIAN: Cat Kimball MD SURGEON: Dr Monsalve ANESTHESIA: MAC DIAGNOSIS: Resendiz's esophagus without dysplasia [K22.70] Encounter for screening colonoscopy [Z12.11] PROCEDURE: EGD and colonoscopy Subjective CHIEF COMPLAINT: Resendiz's esophagus The reason for this visit is to perform a comprehensive review of the patient's past medical history, assess their current health status and obtain any additional testing required based on anesthesia guidelines. We will also identify any potential anesthesia problems or contraindications to the planned procedure. HPI: This is a 74 year old female who presents with hx Resendiz's esophagus. GERD on carafate and omeprazole still occasional symptoms depending on her food intake. Denies changes in bowel habits, no hematochezia or melena, no abdominal pain. Last colonoscopy 2014, EGD 03/2024. Family hx sister colon cancer in her 70s Family hx breast cancer, renal cancer, brain cancer. Last colonoscopy METS: Climb a flight of stairs or walk up a hill (5.50 METs) FUNCTIONAL STATUS: Independent PAST MEDICAL HISTORY Diagnosis Date Resendiz's esophageal ulceration Resendiz's esophagus with low grade dysplasia 2012 & 05/02/2015 Diverticulitis of colon without hemorrhage GERD (gastroesophageal reflux disease) H. pylori infection Hemorrhage of rectum and anus Hemorrhoids without complication Hypercholesteremia 03/23/2024 Hypersomnia Malaise and fatigue Migraine w/o mgn w/o status migrainousus OAB (overactive bladder) PMH - PAST MEDICAL HISTORY OF PROLAPSED BLADDER Unspecified urinary incontinence USI and occ urgency Varicose veins of right lower extremity with pain PAST SURGICAL HISTORY Procedure Laterality Date BREAST BIOPSY 09/01/2004 benign COLONOSCOPY 05/02/2015 Dr. Bryson due in 2024 COLPOSCOPY CERVIX UPPER/ADJACENT VAGINA 1992 Colposcopy Cervicitis only No treatment EGD 02/11/2016 EGD EGD WITH BIOPSY(S) 02/09/2017 EGD WITH BIOPSY(S) 01/27/2018 intestinal metaplasia EGD WITH BIOPSY(S) 12/08/2018 intestinal metaplasia EGD WITH BIOPSY(S) 01/23/2020 Resendiz's without dysplasia; Dr. Monsalve EGD WITH BIOPSY(S) 01/09/2021 Resendiz's without dysplasia; Dr. Monsalve EGD WITH BIOPSY(S) 04/22/2023 Resendiz's without dysplasia; Dr. Monsalve EGD WITH BIOPSY(S) 03/23/2024 neg for Resendiz's; Dr. Monsalve ESOPHAGOSCOPY FLEX TRANSORAL LESION ABLATION 06/18/2015 RFA #1 ESOPHAGOSCOPY FLEX TRANSORAL LESION ABLATION 12/03/2015 RFA #2 HYSTERECTOMY 2013 LIGATE [place] TUBE FAMILY HISTORY Problem Relation Age of Onset Heart Mother CONGESTIVE HEART FAILURE Cancer Father nasal tumor other (brain tumor) Brother other (brain tumor) Sister Cancer Brother melanoma Breast Cancer Sister Cancer Brother brain tumor Breast Cancer Sister Colon Cancer Sister other (kidney cancer) Sister SOCIAL HISTORY[1] Prior to Admission medications as of 04/12/25 0930 Medication Sig Last Dose Taking calcium carbonate/vitamin D3 (CALCIUM 600 + D,3, ORAL) Take by mouth once daily. 04/05/2025 Yes cholecalciferol, vitamin D3, (VITAMIN D3 ORAL) Take by mouth once daily. 04/05/2025 Yes omeprazole (PRILOSEC) 20 mg capsule Take 20 mg by mouth twice daily. 04/12/2025 at 7:00 AM Yes sucralfate (CARAFATE) 1 gram tablet Take 1 g by mouth twice daily. As needed 04/12/2025 at 7:00 AM Yes BABY ASPIRIN ORAL Take 81 mg by mouth once daily. ALLERGIES No Known Allergies COMPLETE REVIEW OF SYSTEMS: GENERAL: No weight loss, malaise or fevers RESPIRATORY: Negative for cough, hemoptysis, wheezing, COPD, dyspnea or shortness of breath Cardiac: Negative for chest pain, leg swelling, hypertension, CHF or palpitations GI: No nausea, vomiting, or diarrhea and See HPI : OAB MUSCULOSKELETAL: bilateral knee pain PSYCH: Negative for sleep disturbance, mood disorder and recent psychosocial stressors ENDOCRINE:Denies diabetes and thyroid problems NEURO: No Hx seizures, tremors or CVA, hx migraines Heme/OnNo hx blood clots, clotting disorders, or cancer Objective PHYSICAL EXAM: 04/12/25 0905 BP: 114/72 Pulse: 74 Temp: 36.6 C (97.9 F) TempSrc: Temporal Artery SpO2: 97% Weight: 66.7 kg (147 lb) Height: 157.5 cm (5' 2) Body mass index is 26.89 kg/m . MENTAL STATUS: alert, oriented to person, place and time HEENT: Normocephalic/atraumatic LUNGS: Lungs clear to auscultation, Good diaphragmatic excursion CARDIAC: Normal S1 and S2; no rubs, murmurs, or gallops ABDOMEN: Soft, nontender EXTREMITIES: Extremities normal, no deformities, edema, clubbing or skin discoloration. Good capillary refill. Diagnostic tests reviewed for today's visit: Lab Value Units Date High Low HB No results within date range. HCT No results within date range. WBC No results within date range. PLT No results within date range. NA No results within date range. K No results within date range. GLUC No results within date range. BUN No results within date range. CREAT No results within date range. PTSEC No results within date range. INR No results within date range. APTT No results within date range. ALT No results within date range. AST No results within date range. TBILI No results within date range. TSH No results within date range. Lab Value Units Date High Low HCGQT No results within date range. UHCG No results within date range. HCG, BODY* No results within date range. Lab Value Units Date High Low ABORHD No results within date range. ABSCREEN No results within date range. No results found for: HBA1C Assessment/Plan ANESTHESIA FINDINGS: Intubation History: No history of difficult intubation Significant Anesthesia Considerations: None FAMILY PROBLEMS WITH ANESTHESIA: no history of adverse anesthetic event Patient has the following medical conditions Problem List Items Addressed This Visit Gastrointestinal Resendiz's esophagus without dysplasia EGD 03/23/2024 Scheduled for EGD 04/12/2025 Relevant Orders EGD DIAGNOSTIC Other Preop examination - Primary Other Visit Diagnoses Encounter for screening colonoscopy Relevant Orders COLONOSCOPY SCREENING Pre-op testing: Medical conditions which may affect the maya-operative course were addressed in the visit today. PLAN Procedure Diagnosis: Resendiz's esophagus without dysplasia [K22.70] Encounter for screening colonoscopy [Z12.11] Planned Procedure: EGD and colonoscopy Planned Anesthetic: MAC I spent a total of 20 minutes on the date of the service which included preparing to see the patient, [id number] patient care, completing clinical documentation, obtaining and/or reviewing separately obtained history, and performing a medically appropriate examination. SIGNATURE: uSzanne Espinosa APRN.CNP PATIENT NAME: Emeli Nascimento DATE: April 12, 2025 TIME: 9:16 AM PAGER/CONTACT #: [1] Social History Tobacco Use Smoking status: Never Smokeless tobacco: Never Vaping Use Vaping status: Never Used Substance Use Topics Alcohol use: Yes Comment: 1 x month Drug use: No HISTORY AND PHYSICAL EXAMINATION Emeli Nascimento 1950 SERVICE DATE: 04/12/2025 SERVICE TIME: 9:16 AM PRIMARY CARE PHYSICIAN: Cat Kimball MD SURGEON: Dr Monsalve ANESTHESIA: MAC DIAGNOSIS: Resendiz's esophagus without dysplasia [K22.70] Encounter for screening colonoscopy [Z12.11] PROCEDURE: EGD and colonoscopy Subjective CHIEF COMPLAINT: Resendiz's esophagus The reason for this visit is to perform a comprehensive review of the patient's past medical history, assess their current health status and obtain any additional testing required based on anesthesia guidelines. We will also identify any potential anesthesia problems or contraindications to the planned procedure. HPI: This is a 74 year old female who presents with hx Resendiz's esophagus. GERD on carafate and omeprazole still occasional symptoms depending on her food intake. Denies changes in bowel habits, no hematochezia or melena, no abdominal pain. Last colonoscopy 2014, EGD 03/2024. Family hx sister colon cancer in her 70s Family hx breast cancer, renal cancer, brain cancer. Last colonoscopy METS: Climb a flight of stairs or walk up a hill (5.50 METs) FUNCTIONAL STATUS: Independent PAST MEDICAL HISTORY Diagnosis Date Resendiz's esophageal ulceration Resendiz's esophagus with low grade dysplasia 2012 & 05/02/2015 Diverticulitis of colon without hemorrhage GERD (gastroesophageal reflux disease) H. pylori infection Hemorrhage of rectum and anus Hemorrhoids without complication Hypercholesteremia 03/23/2024 Hypersomnia Malaise and fatigue Migraine w/o mgn w/o status migrainousus OAB (overactive bladder) PMH - PAST MEDICAL HISTORY OF PROLAPSED BLADDER Unspecified urinary incontinence USI and occ urgency Varicose veins of right lower extremity with pain PAST SURGICAL HISTORY Procedure Laterality Date BREAST BIOPSY 09/01/2004 benign COLONOSCOPY 05/02/2015 Dr. Bryson due in 2024 COLPOSCOPY CERVIX UPPER/ADJACENT VAGINA 1992 Colposcopy Cervicitis only No treatment EGD 02/11/2016 EGD EGD WITH BIOPSY(S) 02/09/2017 EGD WITH BIOPSY(S) 01/27/2018 intestinal metaplasia EGD WITH BIOPSY(S) 12/08/2018 intestinal metaplasia EGD WITH BIOPSY(S) 01/23/2020 Resendiz's without dysplasia; Dr. Monsalve EGD WITH BIOPSY(S) 01/09/2021 Resendiz's without dysplasia; Dr. Monsalve EGD WITH BIOPSY(S) 04/22/2023 Resendiz's without dysplasia; Dr. Monsalve EGD WITH BIOPSY(S) 03/23/2024 neg for Resendiz's; Dr. Monsalve ESOPHAGOSCOPY FLEX TRANSORAL LESION ABLATION 06/18/2015 RFA #1 ESOPHAGOSCOPY FLEX TRANSORAL LESION ABLATION 12/03/2015 RFA #2 HYSTERECTOMY 2013 LIGATE [place] TUBE FAMILY HISTORY Problem Relation Age of Onset Heart Mother CONGESTIVE HEART FAILURE Cancer Father nasal tumor other (brain tumor) Brother other (brain tumor) Sister Cancer Brother melanoma Breast Cancer Sister Cancer Brother brain tumor Breast Cancer Sister Colon Cancer Sister other (kidney cancer) Sister SOCIAL HISTORY[1] Prior to Admission medications as of 04/12/25 0930 Medication Sig Last Dose Taking calcium carbonate/vitamin D3 (CALCIUM 600 + D,3, ORAL) Take by mouth once daily. 04/05/2025 Yes cholecalciferol, vitamin D3, (VITAMIN D3 ORAL) Take by mouth once daily. 04/05/2025 Yes omeprazole (PRILOSEC) 20 mg capsule Take 20 mg by mouth twice daily. 04/12/2025 at 7:00 AM Yes sucralfate (CARAFATE) 1 gram tablet Take 1 g by mouth twice daily. As needed 04/12/2025 at 7:00 AM Yes BABY ASPIRIN ORAL Take 81 mg by mouth once daily. ALLERGIES No Known Allergies COMPLETE REVIEW OF SYSTEMS: GENERAL: No weight loss, malaise or fevers RESPIRATORY: Negative for cough, hemoptysis, wheezing, COPD, dyspnea or shortness of breath Cardiac: Negative for chest pain, leg swelling, hypertension, CHF or palpitations GI: No nausea, vomiting, or diarrhea and See HPI : OAB MUSCULOSKELETAL: bilateral knee pain PSYCH: Negative for sleep disturbance, mood disorder and recent psychosocial stressors ENDOCRINE:Denies diabetes and thyroid problems NEURO: No Hx seizures, tremors or CVA, hx migraines Heme/OnNo hx blood clots, clotting disorders, or cancer Objective PHYSICAL EXAM: 04/12/25 0905 BP: 114/72 Pulse: 74 Temp: 36.6 C (97.9 F) TempSrc: Temporal Artery SpO2: 97% Weight: 66.7 kg (147 lb) Height: 157.5 cm (5' 2) Body mass index is 26.89 kg/m . MENTAL STATUS: alert, oriented to person, place and time HEENT: Normocephalic/atraumatic LUNGS: Lungs clear to auscultation, Good diaphragmatic excursion CARDIAC: Normal S1 and S2; no rubs, murmurs, or gallops ABDOMEN: Soft, nontender EXTREMITIES: Extremities normal, no deformities, edema, clubbing or skin discoloration. Good capillary refill. Diagnostic tests reviewed for today's visit: Lab Value Units Date High Low HB No results within date range. HCT No results within date range. WBC No results within date range. PLT No results within date range. NA No results within date range. K No results within date range. GLUC No results within date range. BUN No results within date range. CREAT No results within date range. PTSEC No results within date range. INR No results within date range. APTT No results within date range. ALT No results within date range. AST No results within date range. TBILI No results within date range. TSH No results within date range. Lab Value Units Date High Low HCGQT No results within date range. UHCG No results within date range. HCG, BODY* No results within date range. Lab Value Units Date High Low ABORHD No results within date range. ABSCREEN No results within date range. No results found for: HBA1C Assessment/Plan ANESTHESIA FINDINGS: Intubation History: No history of difficult intubation Significant Anesthesia Considerations: None FAMILY PROBLEMS WITH ANESTHESIA: no history of adverse anesthetic event Patient has the following medical conditions Problem List Items Addressed This Visit Gastrointestinal Resendiz's esophagus without dysplasia EGD 03/23/2024 Scheduled for EGD 04/12/2025 Relevant Orders EGD DIAGNOSTIC Other Preop examination - Primary Other Visit Diagnoses Encounter for screening colonoscopy Relevant Orders COLONOSCOPY SCREENING Pre-op testing: Medical conditions which may affect the maya-operative course were addressed in the visit today. PLAN Procedure Diagnosis: Resendiz's esophagus without dysplasia [K22.70] Encounter for screening colonoscopy [Z12.11] Planned Procedure: EGD and colonoscopy Planned Anesthetic: MAC I spent a total of 20 minutes on the date of the service which included preparing to see the patient, [id number] patient care, completing clinical documentation, obtaining and/or reviewing separately obtained history, and performing a medically appropriate examination. SIGNATURE: Suzanne Espinosa APRN.CNP PATIENT NAME: Emeli Nascimento DATE: April 12, 2025 TIME: 9:16 AM PAGER/CONTACT #: [1] Social History Tobacco Use Smoking status: Never Smokeless tobacco: Never Vaping Use Vaping status: Never Used Substance Use Topics Alcohol use: Yes Comment: 1 x month Drug use: No documented in this encounter [facility] 04-12-2025 Surgery Surgical operation note OPERATIVE/PROCEDURE REPORT LOG ID: [id number] SURGERY/PROCEDURE DATE: 04/12/2025 INCISION/PROCEDURE START TIME: 9:58 AM INCISION CLOSE/PROCEDURE END TIME: 10:36 AM SURGEON(S)/PROCEDURALIST(S) AND DETAIL ASSEMBLER(S): Rhina Monsalve MD - Proceduralist Dora Arriaga DO SURGERY/PROCEDURE(S): EGD with biopsies Colonoscopy ANESTHESIA: Monitored Anesthesia Care SURGERY/PROCEDURE DETAILS: Patient is a 74-year-old female who has Resendiz's esophagus with low-grade dysplasia presents today for surveillance. She also has a family history of colorectal carcinoma presents today for high risk screening. The risks, and complications of the procedure were reviewed with the patient in detail including bleeding, missing the lesion and perforation requiring emergency surgery and anesthetic risks. Patient agreed to proceed. Patient brought to the endoscopy suite and routine monitors performed. She was placed in left lateral position. After adequate MAC anesthesia was obtained scope was inserted and passed in the esophagus. Z-line noted at about 30 cm. There was 1 area concerning for Resendiz's esophagus both on visualization and narrowband imaging. Remainder of the esophagus showed no concerning features of Resendiz's esophagus. Scope was inserted retroflexed view shows a Hill grade 4. Remainder the stomach and up to the second portion of the duodenum were normal. Scope was then withdrawn and biopsies were obtained of the areas of concern and surrounding esophagus as well. Air was aspirated the stomach and the scope was withdrawn. Next we turned our attention to the colon. Perianal inspection digital rectal exam was normal. Scope was inserted and passed up to the cecum. Cecum identified the appendiceal orifice and the ileocecal valve. The scope was then slowly drawn mucosa was carefully evaluated. There was sigmoid diverticulosis. Otherwise there were no lesions in the colon. Retroflexed view was normal. Scope was withdrawn and she Toller procedure well. Repeat colonoscopy in 5 years. Repeat EGD pending pathology report. PRE-OP/PRE-PROCEDURE DIAGNOSIS: Resendiz's esophagus low-grade dysplasia. Family history of colorectal carcinoma POST-OP/POST-PROCEDURE DIAGNOSIS: Same as Preop ESTIMATED BLOOD LOSS: 0 ml SPECIMENS: GE junction biopsies IMPLANTABLE DEVICES: NONE DRAINS: None COMPLICATIONS: None PARTICIPATION IN SURGERY/PROCEDURE: Resident, under direct supervision and the remainder of the procedure was performed by the primary surgeon/proceduralist with assistance. SIGNATURE: Rhina Monsalve MD PATIENT NAME: Emeli Nascimento DATE: April 12, 2025 TIME: 10:44 AM [facility] Work Phone: 04-12-2025 Surgical operation note OPERATIVE/PROCEDURE REPORT LOG ID: [id number] SURGERY/PROCEDURE DATE: 04/12/2025 INCISION/PROCEDURE START TIME: 9:58 AM INCISION CLOSE/PROCEDURE END TIME: 10:36 AM SURGEON(S)/PROCEDURALIST(S) AND DETAIL ASSEMBLER(S): Rhina Monsalve MD - Proceduralist Dora Arriaga DO SURGERY/PROCEDURE(S): EGD with biopsies Colonoscopy ANESTHESIA: Monitored Anesthesia Care SURGERY/PROCEDURE DETAILS: Patient is a 74-year-old female who has Resendiz's esophagus with low-grade dysplasia presents today for surveillance. She also has a family history of colorectal carcinoma presents today for high risk screening. The risks, and complications of the procedure were reviewed with the patient in detail including bleeding, missing the lesion and perforation requiring emergency surgery and anesthetic risks. Patient agreed to proceed. Patient brought to the endoscopy suite and routine monitors performed. She was placed in left lateral position. After adequate MAC anesthesia was obtained scope was inserted and passed in the esophagus. Z-line noted at about 30 cm. There was 1 area concerning for Resendiz's esophagus both on visualization and narrowband imaging. Remainder of the esophagus showed no concerning features of Resendiz's esophagus. Scope was inserted retroflexed view shows a Hill grade 4. Remainder the stomach and up to the second portion of the duodenum were normal. Scope was then withdrawn and biopsies were obtained of the areas of concern and surrounding esophagus as well. Air was aspirated the stomach and the scope was withdrawn. Next we turned our attention to the colon. Perianal inspection digital rectal exam was normal. Scope was inserted and passed up to the cecum. Cecum identified the appendiceal orifice and the ileocecal valve. The scope was then slowly drawn mucosa was carefully evaluated. There was sigmoid diverticulosis. Otherwise there were no lesions in the colon. Retroflexed view was normal. Scope was withdrawn and she Toller procedure well. Repeat colonoscopy in 5 years. Repeat EGD pending pathology report. PRE-OP/PRE-PROCEDURE DIAGNOSIS: Resendiz's esophagus low-grade dysplasia. Family history of colorectal carcinoma POST-OP/POST-PROCEDURE DIAGNOSIS: Same as Preop ESTIMATED BLOOD LOSS: 0 ml SPECIMENS: GE junction biopsies IMPLANTABLE DEVICES: NONE DRAINS: None COMPLICATIONS: None PARTICIPATION IN SURGERY/PROCEDURE: Resident, under direct supervision and the remainder of the procedure was performed by the primary surgeon/proceduralist with assistance. SIGNATURE: Rhina Monsalve MD PATIENT NAME: Emeli Nascimento DATE: April 12, 2025 TIME: 10:44 AM documented in this encounter [facility] 04-03-2025 Telephone encounter Note Patient called to confirm her testing date & arrival time for her EGD & Colonoscopy. We confirmed the testing is on 04/12/25 at 10 AM with a 9 AM arrival time. Emeli said her will be driving her. Emeli also mentioned she did not receive her prep. She does not use My Chart and the prep will not arrive via [employer] in time for her procedures next week. Patient agreed to have me email her the prep. She asked me to send it to [email or web address]. I validated there were no new medications to be added to her history. Patient denied questions at the end of our call. Delmi Pro RN [facility] 04-03-2025 Miscellaneous Notes Patient called to confirm her testing date & arrival time for her EGD & Colonoscopy. We confirmed the testing is on 04/12/25 at 10 AM with a 9 AM arrival time. Emeli said her will be driving her. Emeli also mentioned she did not receive her prep. She does not use My Chart and the prep will not arrive via [employer] in time for her procedures next week. Patient agreed to have me email her the prep. She asked me to send it to [email or web address]. I validated there were no new medications to be added to her history. Patient denied questions at the end of our call. Delmi Pro RN documented in this encounter [facility] 03-29-2024 Telephone encounter Note ----- Message from Rhina Monsalve MD sent at 03/28/2024 3:18 PM EDT ----- Please call and tell her no Resendiz's on biopsy. Repeat EGD 1 year. Thank you I called patient and shared the results with her. She was pleased to hear the results as there was a suspicious area. Emeli agreed to an EGD in 1 year and asked me to make sure it is scheduled with a colonoscopy per Dr. Monsalve' instructions. I agreed and placed the recall in [facility] for 2024. Delmi Pro RN [facility] 03-29-2024 Miscellaneous Notes ----- Message from Rhina Monsalve MD sent at 03/28/2024 3:18 PM EDT ----- Please call and tell her no Resendiz's on biopsy. Repeat EGD 1 year. Thank you I called patient and shared the results with her. She was pleased to hear the results as there was a suspicious area. Emeli agreed to an EGD in 1 year and asked me to make sure it is scheduled with a colonoscopy per Dr. Monsalve' instructions. I agreed and placed the recall in [facility] for 2024. Delmi Pro RN documented in this encounter [facility] 03-23-2024 Note Formatting of this n ote might be different from the original. A few biopsies were done. Results will by in My Chart in about a week. Watch for bleeding in your saliva, a fever or sever pain and call the doctor for any of these. [facility] 03-23-2024 Miscellaneous Notes A few biopsies were done. Results will by in My Chart in about a week. Watch for bleeding in your saliva, a fever or sever pain and call the doctor for any of these. documented in this encounter [facility] 03-23-2024 Nurse Note Patient seen by the doctor [facility] 03-23-2024 Nurse Note Patient seen by the doctor documented in this encounter [facility] 03-23-2024 Attending History and physical note UPDATED HISTORY AND PHYSICAL EXAMINATION SERVICE DATE: 03/23/2024 SERVICE TIME: 0900 PHYSICAL EXAM MUST BE COMPLETED ON ADMISSION The History and Physical (completed in the past 30 days) has been reviewed and the patient has been examined. The contents accurately reflect the patient's condition with the following additions or revisions since the H&P was completed. Examination indicates no changes. This H&P can be found in the attached. SIGNATURE: Rhina Monsalve MD PATIENT NAME: Emeli Nascimento DATE: March 23, 2024 TIME: 9:30 AM Source Note - Suzanne Espinosa APRN.PREDATORY [employer]TER - 03/23/2024 9:00 AM EDT HISTORY AND PHYSICAL EXAMINATION Emeli Nascimento 1950 SERVICE DATE: 03/23/2024 SERVICE TIME: 8:06 AM PRIMARY CARE PHYSICIAN: Cat Kimball MD SURGEON: Dr Monsalve ANESTHESIA: MAC DIAGNOSIS: Resendiz's esophagus without dysplasia [K22.70] PROCEDURE: EGD Subjective CHIEF COMPLAINT: EGD The reason for this visit is to perform a comprehensive review of the patient's past medical history, assess their current health status and obtain any additional testing required based on anesthesia guidelines. We will also identify any potential anesthesia problems or contraindications to the planned procedure. HPI: This is a 73 year old female who presents with Resendiz's esophagus without dyplasia. Pt presents for EGD with Dr Monsalve. Last EGD 04/22/2023. GERD managed on Carafate and Prilosec 20mg BID and occasional TUMs. Pt with symptoms bending over and if eating later at night. Denies abdominal pain, no hematochezia or melena. Family hx sister with colon cancer in her 70s. METS: Do yardwork, such as raking leaves, weeding,or pushing a power mower (4.50 METs) FUNCTIONAL STATUS: Independent PAST MEDICAL HISTORY No date: Resendiz's esophageal ulceration 2012 & 05/02/2015: Resendiz's esophagus with low grade dysplasia No date: Diverticulitis of colon without hemorrhage No date: GERD (gastroesophageal reflux disease) No date: H. pylori infection No date: Hemorrhage of rectum and anus No date: Hemorrhoids without complication 03/23/2024: Hypercholesteremia No date: Hypersomnia No date: Malaise and fatigue No date: Migraine Comment: w/o mgn w/o status migrainousus No date: OAB (overactive bladder) No date: PMH - PAST MEDICAL HISTORY OF Comment: PROLAPSED BLADDER No date: Unspecified urinary incontinence Comment: USI and occ urgency No date: Varicose veins of right lower extremity with pain PAST SURGICAL HISTORY 09/01/2004: BREAST BIOPSY Comment: benign 05/02/2015: COLONOSCOPY Comment: Dr. Bryson due in 2024 1992: COLPOSCOPY CERVIX UPPER/ADJACENT VAGINA Comment: Colposcopy Cervicitis only No treatment 02/11/2016: EGD Comment: EGD 02/09/2017: EGD WITH BIOPSY(S) 01/27/2018: EGD WITH BIOPSY(S) Comment: intestinal metaplasia 12/08/2018: EGD WITH BIOPSY(S) Comment: intestinal metaplasia 01/23/2020: EGD WITH BIOPSY(S) Comment: Resendiz's without dysplasia; Dr. Monsalve 01/09/2021: EGD WITH BIOPSY(S) Comment: Resendiz's without dysplasia; Dr. Monsalve 04/22/2023: EGD WITH BIOPSY(S) Comment: Resendiz's without dysplasia; Dr. Monsalve 06/18/2015: ESOPHAGOSCOPY FLEX TRANSORAL LESION ABLATION Comment: RFA #1 12/03/2015: ESOPHAGOSCOPY FLEX TRANSORAL LESION ABLATION Comment: RFA #2 2012: HYSTERECTOMY No date: LIGATE FALLOPIAN TUBE FAMILY HISTORY Problem Relation Age of Onset Heart Mother CONGESTIVE HEART FAILURE Cancer Father nasal tumor other (brain tumor) Brother other (brain tumor) Sister Cancer Brother melanoma Breast Cancer Sister Cancer Brother brain tumor Breast Cancer Sister Colon Cancer Sister other (kidney cancer) Sister Social History Tobacco Use Smoking status: Never Smokeless tobacco: Never Vaping Use Vaping Use: Never used Substance Use Topics Alcohol use: Yes Comment: 1 x month Drug use: No Prior to Admission medications as of 03/23/24 0819 Medication Sig Last Dose Taking calcium carbonate/vitamin D3 (CALCIUM 600 + D,3, ORAL) Take by mouth once daily. 03/22/2024 Yes cholecalciferol, vitamin D3, (VITAMIN D3 ORAL) Take by mouth once daily. 03/22/2024 Yes omeprazole (PRILOSEC) 20 mg capsule Take 20 mg by mouth twice daily. 03/22/2024 Yes sucralfate (CARAFATE) 1 gram tablet Take 1 g by mouth twice daily. As needed 03/22/2024 Yes BABY ASPIRIN ORAL Take 81 mg by mouth once daily. ALLERGIES No Known Allergies COMPLETE REVIEW OF SYSTEMS: GENERAL: No weight loss, malaise or fevers RESPIRATORY: Negative for cough, hemoptysis, wheezing, COPD, dyspnea or shortness of breath Cardiac: Negative for chest pain, leg swelling, hypertension, CHF or palpitations GI: No nausea, vomiting, or diarrhea and See HPI : OAB MUSCULOSKELETAL: +OA PSYCH: Negative for sleep disturbance, mood disorder and recent psychosocial stressors ENDOCRINE:Denies diabetes and thyroid problems NEURO: No Hx seizures, tremors or CVA, hx migraines Heme/Onc: No hx blood clots, clotting disorders, or cancer Objective PHYSICAL EXAM: 03/23/24 0759 BP: 126/74 Pulse: 70 Resp: 20 Temp: 36.3 C (97.3 F) TempSrc: Temporal Artery SpO2: 99% Weight: 66.7 kg (147 lb) Height: 157.5 cm (5' 2) Body mass index is 26.89 kg/m . MENTAL STATUS: alert, oriented to person, place and time HEENT: Normocephalic/atraumatic, pharynx clear LUNGS: Lungs clear to auscultation, Good diaphragmatic excursion CARDIAC: Normal S1 and S2; no rubs, murmurs, or gallops ABDOMEN: Soft, nontender EXTREMITIES: Extremities normal, no deformities, edema, clubbing or skin discoloration. Good capillary refill. Diagnostic tests reviewed for today's visit: Lab Value Units Date High Low HB No results within date range. HCT No results within date range. WBC No results within date range. PLT No results within date range. NA No results within date range. K No results within date range. GLUC No results within date range. BUN No results within date range. CREAT No results within date range. PTSEC No results within date range. INR No results within date range. APTT No results within date range. ALT No results within date range. AST No results within date range. TBILI No results within date range. TSH No results within date range. Lab Value Units Date High Low HCGQT No results within date range. UHCG No results within date range. HCG, BODY* No results within date range. Lab Value Units Date High Low ABORHD No results within date range. ABSCREEN No results within date range. No results found for: HBA1C Assessment/Plan ANESTHESIA FINDINGS: Intubation History: No history of difficult intubation Significant Anesthesia Considerations: None FAMILY PROBLEMS WITH ANESTHESIA: no history of adverse anesthetic event Patient has the following medical conditions Problem List Items Addressed This Visit Cardiovascular Hypercholesteremia Lifestyle modifications Gastrointestinal Resendiz's esophagus without dysplasia Relevant Orders EGD DIAGNOSTIC Other Preop examination - Primary Pre-op testing: Medical conditions which may affect the maya-operative course were addressed in the visit today. PLAN Procedure Diagnosis: Resendiz's esophagus without dysplasia [K22.70] Planned Procedure: EGD Planned Anesthetic: MAC I spent a total of 20 minutes on the date of the service which included preparing to see the patient, [id number] patient care, completing clinical documentation, obtaining and/or reviewing separately obtained history, and performing a medically appropriate examination. SIGNATURE: Suzanne Espinosa APRN.CNP PATIENT NAME: Emeli Nascimento DATE: March 23, 2024 TIME: 8:06 AM PAGER/CONTACT #: [facility] Work Phone: 03-23-2024 History and physical note HISTORY AND PHYSICAL EXAMINATION Emeli Nascimento 1950 SERVICE DATE: 03/23/2024 SERVICE TIME: 8:06 AM PRIMARY CARE PHYSICIAN: Cat Kimball MD SURGEON: Dr Monsalve ANESTHESIA: MAC DIAGNOSIS: Resendiz's esophagus without dysplasia [K22.70] PROCEDURE: EGD Subjective CHIEF COMPLAINT: EGD The reason for this visit is to perform a comprehensive review of the patient's past medical history, assess their current health status and obtain any additional testing required based on anesthesia guidelines. We will also identify any potential anesthesia problems or contraindications to the planned procedure. HPI: This is a 73 year old female who presents with Resendiz's esophagus without dyplasia. Pt presents for EGD with Dr Monsalve. Last EGD 04/22/2023. GERD managed on Carafate and Prilosec 20mg BID and occasional TUMs. Pt with symptoms bending over and if eating later at night. Denies abdominal pain, no hematochezia or melena. Family hx sister with colon cancer in her 70s. METS: Do yardwork, such as raking leaves, weeding,or pushing a power mower (4.50 METs) FUNCTIONAL STATUS: Independent PAST MEDICAL HISTORY No date: Resendiz's esophageal ulceration 2012 & 05/02/2015: Resendiz's esophagus with low grade dysplasia No date: Diverticulitis of colon without hemorrhage No date: GERD (gastroesophageal reflux disease) No date: H. pylori infection No date: Hemorrhage of rectum and anus No date: Hemorrhoids without complication 03/23/2024: Hypercholesteremia No date: Hypersomnia No date: Malaise and fatigue No date: Migraine Comment: w/o mgn w/o status migrainousus No date: OAB (overactive bladder) No date: PMH - PAST MEDICAL HISTORY OF Comment: PROLAPSED BLADDER No date: Unspecified urinary incontinence Comment: USI and occ urgency No date: Varicose veins of right lower extremity with pain PAST SURGICAL HISTORY 09/01/2004: BREAST BIOPSY Comment: benign 05/02/2015: COLONOSCOPY Comment: Dr. Bryson due in 2024 1993: COLPOSCOPY CERVIX UPPER/ADJACENT VAGINA Comment: Colposcopy Cervicitis only No treatment 02/11/2016: EGD Comment: EGD 02/09/2017: EGD WITH BIOPSY(S) 01/27/2018: EGD WITH BIOPSY(S) Comment: intestinal metaplasia 12/08/2018: EGD WITH BIOPSY(S) Comment: intestinal metaplasia 01/23/2020: EGD WITH BIOPSY(S) Comment: Resendiz's without dysplasia; Dr. Monsalve 01/09/2021: EGD WITH BIOPSY(S) Comment: Resendiz's without dysplasia; Dr. Monsalve 04/22/2023: EGD WITH BIOPSY(S) Comment: Resendiz's without dysplasia; Dr. Monsalve 06/18/2015: ESOPHAGOSCOPY FLEX TRANSORAL LESION ABLATION Comment: RFA #1 12/03/2015: ESOPHAGOSCOPY FLEX TRANSORAL LESION ABLATION Comment: RFA #2 2013: HYSTERECTOMY No date: LIGATE FALLOPIAN TUBE FAMILY HISTORY Problem Relation Age of Onset Heart Mother CONGESTIVE HEART FAILURE Cancer Father nasal tumor other (brain tumor) Brother other (brain tumor) Sister Cancer Brother melanoma Breast Cancer Sister Cancer Brother brain tumor Breast Cancer Sister Colon Cancer Sister other (kidney cancer) Sister Social History Tobacco Use Smoking status: Never Smokeless tobacco: Never Vaping Use Vaping Use: Never used Substance Use Topics Alcohol use: Yes Comment: 1 x month Drug use: No Prior to Admission medications as of 03/23/24 0819 Medication Sig Last Dose Taking calcium carbonate/vitamin D3 (CALCIUM 600 + D,3, ORAL) Take by mouth once daily. 03/22/2024 Yes cholecalciferol, vitamin D3, (VITAMIN D3 ORAL) Take by mouth once daily. 03/22/2024 Yes omeprazole (PRILOSEC) 20 mg capsule Take 20 mg by mouth twice daily. 03/22/2024 Yes sucralfate (CARAFATE) 1 gram tablet Take 1 g by mouth twice daily. As needed 03/22/2024 Yes BABY ASPIRIN ORAL Take 81 mg by mouth once daily. ALLERGIES No Known Allergies COMPLETE REVIEW OF SYSTEMS: GENERAL: No weight loss, malaise or fevers RESPIRATORY: Negative for cough, hemoptysis, wheezing, COPD, dyspnea or shortness of breath Cardiac: Negative for chest pain, leg swelling, hypertension, CHF or palpitations GI: No nausea, vomiting, or diarrhea and See HPI : OAB MUSCULOSKELETAL: +OA PSYCH: Negative for sleep disturbance, mood disorder and recent psychosocial stressors ENDOCRINE:Denies diabetes and thyroid problems NEURO: No Hx seizures, tremors or CVA, hx migraines Heme/Onc: No hx blood clots, clotting disorders, or cancer Objective PHYSICAL EXAM: 03/23/24 0759 BP: 126/74 Pulse: 70 Resp: 20 Temp: 36.3 C (97.3 F) TempSrc: Temporal Artery SpO2: 99% Weight: 66.7 kg (147 lb) Height: 157.5 cm (5' 2) Body mass index is 26.89 kg/m . MENTAL STATUS: alert, oriented to person, place and time HEENT: Normocephalic/atraumatic, pharynx clear LUNGS: Lungs clear to auscultation, Good diaphragmatic excursion CARDIAC: Normal S1 and S2; no rubs, murmurs, or gallops ABDOMEN: Soft, nontender EXTREMITIES: Extremities normal, no deformities, edema, clubbing or skin discoloration. Good capillary refill. Diagnostic tests reviewed for today's visit: Lab Value Units Date High Low HB No results within date range. HCT No results within date range. WBC No results within date range. PLT No results within date range. NA No results within date range. K No results within date range. GLUC No results within date range. BUN No results within date range. CREAT No results within date range. PTSEC No results within date range. INR No results within date range. APTT No results within date range. ALT No results within date range. AST No results within date range. TBILI No results within date range. TSH No results within date range. Lab Value Units Date High Low HCGQT No results within date range. UHCG No results within date range. HCG, BODY* No results within date range. Lab Value Units Date High Low ABORHD No results within date range. ABSCREEN No results within date range. No results found for: HBA1C Assessment/Plan ANESTHESIA FINDINGS: Intubation History: No history of difficult intubation Significant Anesthesia Considerations: None FAMILY PROBLEMS WITH ANESTHESIA: no history of adverse anesthetic event Patient has the following medical conditions Problem List Items Addressed This Visit Cardiovascular Hypercholesteremia Lifestyle modifications Gastrointestinal Resendiz's esophagus without dysplasia Relevant Orders EGD DIAGNOSTIC Other Preop examination - Primary Pre-op testing: Medical conditions which may affect the maya-operative course were addressed in the visit today. PLAN Procedure Diagnosis: Resendiz's esophagus without dysplasia [K22.70] Planned Procedure: EGD Planned Anesthetic: MAC I spent a total of 20 minutes on the date of the service which included preparing to see the patient, [id number] patient care, completing clinical documentation, obtaining and/or reviewing separately obtained history, and performing a medically appropriate examination. SIGNATURE: Suzanne Espinosa APRN.CNP PATIENT NAME: Emeli Nascimento DATE: March 23, 2024 TIME: 8:06 AM PAGER/CONTACT #: [facility] 03-23-2024 History and physical note UPDATED HISTORY AND PHYSICAL EXAMINATION SERVICE DATE: 03/23/2024 SERVICE TIME: 0900 PHYSICAL EXAM MUST BE COMPLETED ON ADMISSION The History and Physical (completed in the past 30 days) has been reviewed and the patient has been examined. The contents accurately reflect the patient's condition with the following additions or revisions since the H&P was completed. Examination indicates no changes. This H&P can be found in the attached. SIGNATURE: Rhina Monsalve MD PATIENT NAME: Emeli Nascimento DATE: March 23, 2024 TIME: 9:30 AM Source Note - Jesús Suzannesoto Rodríguez APRN.CNP - 03/23/2024 9:00 AM EDT HISTORY AND PHYSICAL EXAMINATION Emeli Nascimento 1950 SERVICE DATE: 03/23/2024 SERVICE TIME: 8:06 AM PRIMARY CARE PHYSICIAN: Cat Kimball MD SURGEON: Dr Monsalve ANESTHESIA: MAC DIAGNOSIS: Resendiz's esophagus without dysplasia [K22.70] PROCEDURE: EGD Subjective CHIEF COMPLAINT: EGD The reason for this visit is to perform a comprehensive review of the patient's past medical history, assess their current health status and obtain any additional testing required based on anesthesia guidelines. We will also identify any potential anesthesia problems or contraindications to the planned procedure. HPI: This is a 73 year old female who presents with Resendiz's esophagus without dyplasia. Pt presents for EGD with Dr Monsalve. Last EGD 04/22/2023. GERD managed on Carafate and Prilosec 20mg BID and occasional TUMs. Pt with symptoms bending over and if eating later at night. Denies abdominal pain, no hematochezia or melena. Family hx sister with colon cancer in her 70s. METS: Do yardwork, such as raking leaves, weeding,or pushing a power mower (4.50 METs) FUNCTIONAL STATUS: Independent PAST MEDICAL HISTORY No date: Resendiz's esophageal ulceration 2012 & 05/02/2015: Resendiz's esophagus with low grade dysplasia No date: Diverticulitis of colon without hemorrhage No date: GERD (gastroesophageal reflux disease) No date: H. pylori infection No date: Hemorrhage of rectum and anus No date: Hemorrhoids without complication 03/23/2024: Hypercholesteremia No date: Hypersomnia No date: Malaise and fatigue No date: Migraine Comment: w/o mgn w/o status migrainousus No date: OAB (overactive bladder) No date: PMH - PAST MEDICAL HISTORY OF Comment: PROLAPSED BLADDER No date: Unspecified urinary incontinence Comment: USI and occ urgency No date: Varicose veins of right lower extremity with pain PAST SURGICAL HISTORY 09/01/2004: BREAST BIOPSY Comment: benign 05/02/2015: COLONOSCOPY Comment: Dr. Adelaide velazquez in 2024 1992: COLPOSCOPY CERVIX UPPER/ADJACENT VAGINA Comment: Colposcopy Cervicitis only No treatment 02/11/2016: EGD Comment: EGD 02/09/2017: EGD WITH BIOPSY(S) 01/27/2018: EGD WITH BIOPSY(S) Comment: intestinal metaplasia 12/08/2018: EGD WITH BIOPSY(S) Comment: intestinal metaplasia 01/23/2020: EGD WITH BIOPSY(S) Comment: Resendiz's without dysplasia; Dr. Monsalve 01/09/2021: EGD WITH BIOPSY(S) Comment: Resendiz's without dysplasia; Dr. Monsalve 04/22/2023: EGD WITH BIOPSY(S) Comment: Resendiz's without dysplasia; Dr. Monsalve 06/18/2015: ESOPHAGOSCOPY FLEX TRANSORAL LESION ABLATION Comment: RFA #1 12/03/2015: ESOPHAGOSCOPY FLEX TRANSORAL LESION ABLATION Comment: RFA #2 2013: HYSTERECTOMY No date: LIGATE FALLOPIAN TUBE FAMILY HISTORY Problem Relation Age of Onset Heart Mother CONGESTIVE HEART FAILURE Cancer Father nasal tumor other (brain tumor) Brother other (brain tumor) Sister Cancer Brother melanoma Breast Cancer Sister Cancer Brother brain tumor Breast Cancer Sister Colon Cancer Sister other (kidney cancer) Sister Social History Tobacco Use Smoking status: Never Smokeless tobacco: Never Vaping Use Vaping Use: Never used Substance Use Topics Alcohol use: Yes Comment: 1 x month Drug use: No Prior to Admission medications as of 03/23/24 0819 Medication Sig Last Dose Taking calcium carbonate/vitamin D3 (CALCIUM 600 + D,3, ORAL) Take by mouth once daily. 03/22/2024 Yes cholecalciferol, vitamin D3, (VITAMIN D3 ORAL) Take by mouth once daily. 03/22/2024 Yes omeprazole (PRILOSEC) 20 mg capsule Take 20 mg by mouth twice daily. 03/22/2024 Yes sucralfate (CARAFATE) 1 gram tablet Take 1 g by mouth twice daily. As needed 03/22/2024 Yes BABY ASPIRIN ORAL Take 81 mg by mouth once daily. ALLERGIES No Known Allergies COMPLETE REVIEW OF SYSTEMS: GENERAL: No weight loss, malaise or fevers RESPIRATORY: Negative for cough, hemoptysis, wheezing, COPD, dyspnea or shortness of breath Cardiac: Negative for chest pain, leg swelling, hypertension, CHF or palpitations GI: No nausea, vomiting, or diarrhea and See HPI : OAB MUSCULOSKELETAL: +OA PSYCH: Negative for sleep disturbance, mood disorder and recent psychosocial stressors ENDOCRINE:Denies diabetes and thyroid problems NEURO: No Hx seizures, tremors or CVA, hx migraines Heme/Onc: No hx blood clots, clotting disorders, or cancer Objective PHYSICAL EXAM: 03/23/24 0759 BP: 126/74 Pulse: 70 Resp: 20 Temp: 36.3 C (97.3 F) TempSrc: Temporal Artery SpO2: 99% Weight: 66.7 kg (147 lb) Height: 157.5 cm (5' 2) Body mass index is 26.89 kg/m . MENTAL STATUS: alert, oriented to person, place and time HEENT: Normocephalic/atraumatic, pharynx clear LUNGS: Lungs clear to auscultation, Good diaphragmatic excursion CARDIAC: Normal S1 and S2; no rubs, murmurs, or gallops ABDOMEN: Soft, nontender EXTREMITIES: Extremities normal, no deformities, edema, clubbing or skin discoloration. Good capillary refill. Diagnostic tests reviewed for today's visit: Lab Value Units Date High Low HB No results within date range. HCT No results within date range. WBC No results within date range. PLT No results within date range. NA No results within date range. K No results within date range. GLUC No results within date range. BUN No results within date range. CREAT No results within date range. PTSEC No results within date range. INR No results within date range. APTT No results within date range. ALT No results within date range. AST No results within date range. TBILI No results within date range. TSH No results within date range. Lab Value Units Date High Low HCGQT No results within date range. UHCG No results within date range. HCG, BODY* No results within date range. Lab Value Units Date High Low ABORHD No results within date range. ABSCREEN No results within date range. No results found for: HBA1C Assessment/Plan ANESTHESIA FINDINGS: Intubation History: No history of difficult intubation Significant Anesthesia Considerations: None FAMILY PROBLEMS WITH ANESTHESIA: no history of adverse anesthetic event Patient has the following medical conditions Problem List Items Addressed This Visit Cardiovascular Hypercholesteremia Lifestyle modifications Gastrointestinal Resendiz's esophagus without dysplasia Relevant Orders EGD DIAGNOSTIC Other Preop examination - Primary Pre-op testing: Medical conditions which may affect the maya-operative course were addressed in the visit today. PLAN Procedure Diagnosis: Resendiz's esophagus without dysplasia [K22.70] Planned Procedure: EGD Planned Anesthetic: MAC I spent a total of 20 minutes on the date of the service which included preparing to see the patient, [id number] patient care, completing clinical documentation, obtaining and/or reviewing separately obtained history, and performing a medically appropriate examination. SIGNATURE: Suzanne Espinosa APRN.CNP PATIENT NAME: Emeli Nascimento DATE: March 23, 2024 TIME: 8:06 AM PAGER/CONTACT #: HISTORY AND PHYSICAL EXAMINATION Emeli Nascimento 1950 SERVICE DATE: 03/23/2024 SERVICE TIME: 8:06 AM PRIMARY CARE PHYSICIAN: Cat Kimball MD SURGEON: Dr Monsalve ANESTHESIA: MAC DIAGNOSIS: Resendiz's esophagus without dysplasia [K22.70] PROCEDURE: EGD Subjective CHIEF COMPLAINT: EGD The reason for this visit is to perform a comprehensive review of the patient's past medical history, assess their current health status and obtain any additional testing required based on anesthesia guidelines. We will also identify any potential anesthesia problems or contraindications to the planned procedure. HPI: This is a 73 year old female who presents with Resendiz's esophagus without dyplasia. Pt presents for EGD with Dr Monsalve. Last EGD 04/22/2023. GERD managed on Carafate and Prilosec 20mg BID and occasional TUMs. Pt with symptoms bending over and if eating later at night. Denies abdominal pain, no hematochezia or melena. Family hx sister with colon cancer in her 70s. METS: Do yardwork, such as raking leaves, weeding,or pushing a power mower (4.50 METs) FUNCTIONAL STATUS: Independent PAST MEDICAL HISTORY No date: Resendiz's esophageal ulceration 2012 & 05/02/2015: Resendiz's esophagus with low grade dysplasia No date: Diverticulitis of colon without hemorrhage No date: GERD (gastroesophageal reflux disease) No date: H. pylori infection No date: Hemorrhage of rectum and anus No date: Hemorrhoids without complication 03/23/2024: Hypercholesteremia No date: Hypersomnia No date: Malaise and fatigue No date: Migraine Comment: w/o mgn w/o status migrainousus No date: OAB (overactive bladder) No date: PMH - PAST MEDICAL HISTORY OF Comment: PROLAPSED BLADDER No date: Unspecified urinary incontinence Comment: USI and occ urgency No date: Varicose veins of right lower extremity with pain PAST SURGICAL HISTORY 09/01/2004: BREAST BIOPSY Comment: benign 05/02/2015: COLONOSCOPY Comment: Dr. Adelaide velazquez in 2024 1992: COLPOSCOPY CERVIX UPPER/ADJACENT VAGINA Comment: Colposcopy Cervicitis only No treatment 02/11/2016: EGD Comment: EGD 02/09/2017: EGD WITH BIOPSY(S) 01/27/2018: EGD WITH BIOPSY(S) Comment: intestinal metaplasia 12/08/2018: EGD WITH BIOPSY(S) Comment: intestinal metaplasia 01/23/2020: EGD WITH BIOPSY(S) Comment: Resendiz's without dysplasia; Dr. Monsalve 01/09/2021: EGD WITH BIOPSY(S) Comment: Resendiz's without dysplasia; Dr. Monsalve 04/22/2023: EGD WITH BIOPSY(S) Comment: Resendiz's without dysplasia; Dr. Monsalve 06/18/2015: ESOPHAGOSCOPY FLEX TRANSORAL LESION ABLATION Comment: RFA #1 12/03/2015: ESOPHAGOSCOPY FLEX TRANSORAL LESION ABLATION Comment: RFA #2 2012: HYSTERECTOMY No date: LIGATE FALLOPIAN TUBE FAMILY HISTORY Problem Relation Age of Onset Heart Mother CONGESTIVE HEART FAILURE Cancer Father nasal tumor other (brain tumor) Brother other (brain tumor) Sister Cancer Brother melanoma Breast Cancer Sister Cancer Brother brain tumor Breast Cancer Sister Colon Cancer Sister other (kidney cancer) Sister Social History Tobacco Use Smoking status: Never Smokeless tobacco: Never Vaping Use Vaping Use: Never used Substance Use Topics Alcohol use: Yes Comment: 1 x month Drug use: No Prior to Admission medications as of 03/23/24 0819 Medication Sig Last Dose Taking calcium carbonate/vitamin D3 (CALCIUM 600 + D,3, ORAL) Take by mouth once daily. 03/22/2024 Yes cholecalciferol, vitamin D3, (VITAMIN D3 ORAL) Take by mouth once daily. 03/22/2024 Yes omeprazole (PRILOSEC) 20 mg capsule Take 20 mg by mouth twice daily. 03/22/2024 Yes sucralfate (CARAFATE) 1 gram tablet Take 1 g by mouth twice daily. As needed 03/22/2024 Yes BABY ASPIRIN ORAL Take 81 mg by mouth once daily. ALLERGIES No Known Allergies COMPLETE REVIEW OF SYSTEMS: GENERAL: No weight loss, malaise or fevers RESPIRATORY: Negative for cough, hemoptysis, wheezing, COPD, dyspnea or shortness of breath Cardiac: Negative for chest pain, leg swelling, hypertension, CHF or palpitations GI: No nausea, vomiting, or diarrhea and See HPI : OAB MUSCULOSKELETAL: +OA PSYCH: Negative for sleep disturbance, mood disorder and recent psychosocial stressors ENDOCRINE:Denies diabetes and thyroid problems NEURO: No Hx seizures, tremors or CVA, hx migraines Heme/Onc: No hx blood clots, clotting disorders, or cancer Objective PHYSICAL EXAM: 03/23/24 0759 BP: 126/74 Pulse: 70 Resp: 20 Temp: 36.3 C (97.3 F) TempSrc: Temporal Artery SpO2: 99% Weight: 66.7 kg (147 lb) Height: 157.5 cm (5' 2) Body mass index is 26.89 kg/m . MENTAL STATUS: alert, oriented to person, place and time HEENT: Normocephalic/atraumatic, pharynx clear LUNGS: Lungs clear to auscultation, Good diaphragmatic excursion CARDIAC: Normal S1 and S2; no rubs, murmurs, or gallops ABDOMEN: Soft, nontender EXTREMITIES: Extremities normal, no deformities, edema, clubbing or skin discoloration. Good capillary refill. Diagnostic tests reviewed for today's visit: Lab Value Units Date High Low HB No results within date range. HCT No results within date range. WBC No results within date range. PLT No results within date range. NA No results within date range. K No results within date range. GLUC No results within date range. BUN No results within date range. CREAT No results within date range. PTSEC No results within date range. INR No results within date range. APTT No results within date range. ALT No results within date range. AST No results within date range. TBILI No results within date range. TSH No results within date range. Lab Value Units Date High Low HCGQT No results within date range. UHCG No results within date range. HCG, BODY* No results within date range. Lab Value Units Date High Low ABORHD No results within date range. ABSCREEN No results within date range. No results found for: HBA1C Assessment/Plan ANESTHESIA FINDINGS: Intubation History: No history of difficult intubation Significant Anesthesia Considerations: None FAMILY PROBLEMS WITH ANESTHESIA: no history of adverse anesthetic event Patient has the following medical conditions Problem List Items Addressed This Visit Cardiovascular Hypercholesteremia Lifestyle modifications Gastrointestinal Resendiz's esophagus without dysplasia Relevant Orders EGD DIAGNOSTIC Other Preop examination - Primary Pre-op testing: Medical conditions which may affect the maya-operative course were addressed in the visit today. PLAN Procedure Diagnosis: Resendiz's esophagus without dysplasia [K22.70] Planned Procedure: EGD Planned Anesthetic: MAC I spent a total of 20 minutes on the date of the service which included preparing to see the patient, [id number] patient care, completing clinical documentation, obtaining and/or reviewing separately obtained history, and performing a medically appropriate examination. SIGNATURE: Suzanne Espinosa APRN.CNP PATIENT NAME: Emeli Nasciemnto DATE: March 23, 2024 TIME: 8:06 AM PAGER/CONTACT #: documented in this encounter [facility] 03-23-2024 Surgery Surgical operation note OPERATIVE/PROCEDURE REPORT LOG ID: [id number] SURGERY/PROCEDURE DATE: 03/23/2024 INCISION/PROCEDURE START TIME: 9:08 AM INCISION CLOSE/PROCEDURE END TIME: 9:22 AM SURGEON(S)/PROCEDURALIST(S) AND DETAIL ASSEMBLER(S): Rhina Monsalve MD - Proceduralist No Additional Staff SURGERY/PROCEDURE(S): EGD with biopsy ANESTHESIA: Monitored Anesthesia Care SURGERY/PROCEDURE DETAILS: Patient is a 73-year-old female with history of Resendiz's esophagus with low-grade dysplasia presents today for surveillance EGD. The risks, benefits and complications were reviewed including but not limited to bleeding, infection, missing a lesion, effects of anesthesia and perforation possibly requiring an emergency surgery. Patient understood and was agreeable to proceed. Patient brought to the endoscopy suite and routine monitors performed. She was placed in left lateral position. After adequate MAC anesthesia was obtained scope was inserted and passed on the esophagus. Z-line noted be at approximately 30 cm. There was 1 small area concerning for Resendiz's esophagus under visualization and narrowband imaging. Scope was inserted retroflexed showed a Hill grade 4. Remainder the stomach and up to the second portion of the duodenum was normal. The scope was then withdrawn and multiple biopsies were obtained of the GE junction especially the 1 area of concern. Air was then aspirated of the stomach. She Toller procedure well and was transferred to the recovery in stable condition. PRE-OP/PRE-PROCEDURE DIAGNOSIS: Resendiz's esophagus with low-grade dysplasia POST-OP/POST-PROCEDURE DIAGNOSIS: Same as Preop ESTIMATED BLOOD LOSS: 0 ml SPECIMENS: GE junction biopsies IMPLANTABLE DEVICES: NONE DRAINS: None COMPLICATIONS: None PARTICIPATION IN SURGERY/PROCEDURE: I/primary surgeon/proceduralist performed the entire procedure. SIGNATURE: Rhina Monsalve MD PATIENT NAME: Emeli Nascimento DATE: March 23, 2024 TIME: 9:[address] [facility] 03-23-2024 Surgical operation note OPERATIVE/PROCEDURE REPORT LOG ID: [id number] SURGERY/PROCEDURE DATE: 03/23/2024 INCISION/PROCEDURE START TIME: 9:08 AM INCISION CLOSE/PROCEDURE END TIME: 9:22 AM SURGEON(S)/PROCEDURALIST(S) AND DETAIL ASSEMBLER(S): Rhina Monsalve MD - Proceduralist No Additional Staff SURGERY/PROCEDURE(S): EGD with biopsy ANESTHESIA: Monitored Anesthesia Care SURGERY/PROCEDURE DETAILS: Patient is a 73-year-old female with history of Rseendiz's esophagus with low-grade dysplasia presents today for surveillance EGD. The risks, benefits and complications were reviewed including but not limited to bleeding, infection, missing a lesion, effects of anesthesia and perforation possibly requiring an emergency surgery. Patient understood and was agreeable to proceed. Patient brought to the endoscopy suite and routine monitors performed. She was placed in left lateral position. After adequate MAC anesthesia was obtained scope was inserted and passed on the esophagus. Z-line noted be at approximately 30 cm. There was 1 small area concerning for Resendiz's esophagus under visualization and narrowband imaging. Scope was inserted retroflexed showed a Hill grade 4. Remainder the stomach and up to the second portion of the duodenum was normal. The scope was then withdrawn and multiple biopsies were obtained of the GE junction especially the 1 area of concern. Air was then aspirated of the stomach. She Toller procedure well and was transferred to the recovery in stable condition. PRE-OP/PRE-PROCEDURE DIAGNOSIS: Resendiz's esophagus with low-grade dysplasia POST-OP/POST-PROCEDURE DIAGNOSIS: Same as Preop ESTIMATED BLOOD LOSS: 0 ml SPECIMENS: GE junction biopsies IMPLANTABLE DEVICES: NONE DRAINS: None COMPLICATIONS: None PARTICIPATION IN SURGERY/PROCEDURE: I/primary surgeon/proceduralist performed the entire procedure. SIGNATURE: Rhina Monsalve MD PATIENT NAME: Emeli Nascimento DATE: March 23, 2024 TIME: 9:31 AM documented in this encounter [facility] 04-28-2023 Miscellaneous Notes ----- Message from Rhina Monsalve MD sent at 04/27/2023 4:01 PM EDT ----- Please call and tell her positive Resendiz's esophagus, no dysplsia. Repeat EGD in one year Thanks I called patient and shared the above results with her. [facility] recall scheduled for 2023. Delmi Pro RN documented in this encounter [facility] 04-22-2023 History and physical note HISTORY AND PHYSICAL EXAMINATION Patient: Emeli Nascimento : 1950 SERVICE DATE: 04/22/2023 SERVICE TIME: 7:10 AM PRIMARY CARE PHYSICIAN: Cat Kimball MD SURGEON: Dr. Monsalve ANESTHESIA: mac DIAGNOSIS: Resendiz's esophagus without dysplasia [K22.70] PROCEDURE: EGD Subjective The reason for this visit is to perform a comprehensive review of the patient's past medical history, assess their current health status and obtain any additional testing required based on anesthesia guidelines. We will also identify any potential anesthesia problems or contraindications to the planned procedure. CHIEF COMPLAINT: EGD HPI: This is a 72-year-old female who presents for EGD. Prior EGD 01/2022. Hx Resendiz's esophagus, GERD. Reports 3-4 month hx of abdominal pain intermittently. Pain today 0/10. Also notes Increase in reflux sx. Denies any family history of colon or gastric cancer. METS: Climb a flight of stairs or walk up a hill (5.50 METs) Patient denies any chest pain or shortness of breath with above physical activity. FUNCTIONAL STATUS: Independent PAST MEDICAL HISTORY Diagnosis Date Resendiz's esophageal ulceration Resendiz's esophagus with low grade dysplasia 2012 & 05/02/2015 Diverticulitis of colon without hemorrhage GERD (gastroesophageal reflux disease) H. pylori infection Hemorrhage of rectum and anus Hemorrhoids without complication Hypercholesteremia Hypersomnia Malaise and fatigue Migraine w/o mgn w/o status migrainousus OAB (overactive bladder) PMH - PAST MEDICAL HISTORY OF PROLAPSED BLADDER Unspecified urinary incontinence USI and occ urgency Varicose veins of right lower extremity with pain PAST SURGICAL HISTORY Procedure Laterality Date COLONOSCOPY 05/02/2015 COLONOSCOPY FLX DX W/COLLJ SPEC WHEN PFRMD 07/2003 Colonoscopy COLONOSCOPY FLX DX W/COLLJ SPEC WHEN PFRMD 08/31/2008 Colonoscopy COLPOSCOPY CERVIX UPPER/ADJACENT VAGINA 1992 Colposcopy Cervicitis only No treatment EGD TRANSORAL BIOPSY SINGLE/MULTIPLE 02/09/2017 EGD TRANSORAL BIOPSY SINGLE/MULTIPLE 01/27/2018 intestinal metaplasia EGD TRANSORAL BIOPSY SINGLE/MULTIPLE 12/08/2018 intestinal metaplasia EGD TRANSORAL BIOPSY SINGLE/MULTIPLE 01/23/2020 Resendiz's without dysplasia; Dr. Monsalve EGD TRANSORAL BIOPSY SINGLE/MULTIPLE 01/09/2021 Resendiz's without dysplasia; Dr. Monsalve ESOPHAGOGASTRODUODENOSCOPY TRANSORAL DIAGNOSTIC 02/11/2016 EGD ESOPHAGOSCOPY FLEX TRANSORAL LESION ABLATION 06/18/2015 ESOPHAGOSCOPY FLEX TRANSORAL LESION ABLATION 12/02/2014 HYSTERECTOMY 2012 LIG/TRNSXJ FLP TUBE ABDL/VAG APPR UNI/BI Tubal ligation PAST SURGICAL HISTORY OF 09/01/2004 breast biopsy, benign FAMILY HISTORY Problem Relation Age of Onset Heart Mother CONGESTIVE HEART FAILURE Cancer Father nasal tumor other (brain tumor) Brother other (brain tumor) Sister Cancer Brother melanoma Breast Cancer Sister Cancer Brother brain tumor Breast Cancer Sister Colon Cancer Sister other (kidney cancer) Sister Social History Tobacco Use Smoking status: Never Smokeless tobacco: Never Vaping Use Vaping Use: Never used Substance Use Topics Alcohol use: Yes Comment: 1 x month Drug use: No Prior to Admission medications as of 04/22/23 0728 Medication Sig Last Dose Taking calcium carbonate/vitamin D3 (CALCIUM 600 + D,3, ORAL) Take by mouth once daily. Yes cholecalciferol, vitamin D3, (VITAMIN D3 ORAL) Take by mouth once daily. Yes omeprazole (PRILOSEC) 20 mg capsule Take 20 mg by mouth twice daily. 04/21/2023 Yes sucralfate (CARAFATE) 1 gram tablet Take 1 g by mouth twice daily. As needed 04/21/2023 Yes BABY ASPIRIN ORAL Take 81 mg by mouth once daily. 03/22/2023 Yes ALLERGIES No Known Allergies COMPLETE REVIEW OF SYSTEMS: GENERAL: No weight loss, malaise or fevers RESPIRATORY: Denies SAW, coughing, wheezing or SOB CARDIOVASCULAR: Denies chest pain, palpitations, or CHF GI: See HPI : Denies urinary complaints MUSCULOSKELETAL: Denies joint pain, muscle pain, or back pain PSYCH: Denies anxiety, depression, sleep disturbance, or mood disorder ENDOCRINE: Denies DM or thyroid problems NEURO: Migraines. Denies syncope, seizures, or tremors HEME/ONC: Denies cancer or bleeding/clotting disorders Objective PHYSICAL EXAM: CONSTITUTIONAL: Well-developed, NAD MENTAL STATUS: alert, oriented to person, place and time SKIN: Warm, dry, no diaphoresis HEENT: Normocephalic, atraumatic, no lymphadenopathy LUNGS: Lungs clear to auscultation, Good diaphragmatic excursion CARDIAC: RRR no murmur ABDOMEN: Abdomen soft, non-tender, BS x 4 EXTREMITIES: Extremities normal, no deformities, edema, clubbing or skin discoloration. BP 116/71 Pulse 64 Temp 36.2 C (97.2 F) (Temporal) Resp 18 Ht 157.5 cm (5' 2) Wt 65.8 kg (145 lb) SpO2 98% BMI 26.52 kg/m Body mass index is 26.52 kg/m . ANESTHESIA FINDINGS: Intubation History: No history of difficult intubation. Significant anesthesia considerations: None. FAMILY PROBLEMS WITH ANESTHESIA: No history of adverse anesthetic event Assessment/Plan Patient has the following medical conditions which may affect maya-operative course: Problem List Items Addressed This Visit Gastrointestinal Resendiz's esophagus without dysplasia Relevant Orders EGD DIAGNOSTIC Resendiz esophagus - Primary Overview Added automatically from request for surgery [id number] Relevant Medications lidocaine 10 mg/mL (1 %) 1-2 mg injection (XYLOCAINE) lactated ringers iv infusion Other Relevant Orders EGD DIAGNOSTIC Other Preop examination Current Assessment & Plan medical conditions which may affect the maay-operative course were addressed in the visit today. -Pre-op testing-medical conditions which may affect the maya-operative course were addressed in the visit today. I spent a total of 20 minutes on the date of the service which included preparing to see the patient, [id number] patient care, completing clinical documentation, obtaining and/or reviewing separately obtained history, and performing a medically appropriate examination. SIGNATURE: Gail Lynch APRN.CNP PATIENT NAME: Emeli Nascimento DATE: April 22, 2023 TIME: 7:10 AM PAGER/CONTACT #: documented in this encounter [facility] 04-22-2023 Surgical operation note OPERATIVE/PROCEDURE REPORT LOG ID: [id number] SURGERY/PROCEDURE DATE: 04/22/2023 INCISION/PROCEDURE START TIME: 8:17 AM INCISION CLOSE/PROCEDURE END TIME: 8:35 AM SURGEON(S)/PROCEDURALIST(S) AND DETAIL ASSEMBLER(S): Rhina Monsalve MD - Proceduralist Rohan Little MD SURGERY/PROCEDURE(S): EGD with biopsy ANESTHESIA: Monitored Anesthesia Care SURGERY/PROCEDURE DETAILS: Patient is a 72-year-old female with history of Resendiz's esophagus and presents today for surveillance EGD. The risks, benefits and complications were reviewed including but not limited to bleeding, infection, missing a lesion, effects of anesthesia and perforation possibly requiring an emergency surgery. She understood and was agreeable to proceed. Patient brought to the endoscopy suite and routine monitoring was performed. She was placed in left lateral position. After adequate MAC anesthesia was obtained the scope was inserted passed on the esophagus. Z-line noted to be at approximately 32 cm. There is 1 area concerning for Resendiz's esophagus. Scope was inserted retroflexed view showed a Hill grade 4. Remainder the stomach and up the second portion of the duodenum were normal. The scope was then withdrawn and multiple biopsies were obtained of the distal esophagus starting distally and then moving proximally in all 4 quadrants. The area of concern was also biopsied. Air was aspirated the stomach and the scope was removed. She taught the procedure well. PRE-OP/PRE-PROCEDURE DIAGNOSIS:. Resendiz's esophagus POST-OP/POST-PROCEDURE DIAGNOSIS: Same as Preop ESTIMATED BLOOD LOSS: 0 ml SPECIMENS: Esophageal biopsies IMPLANTABLE DEVICES: NONE DRAINS: None COMPLICATIONS: None PARTICIPATION IN SURGERY/PROCEDURE: Resident, under direct supervision and the remainder of the procedure was performed by the primary surgeon/proceduralist with assistance. SIGNATURE: Rhina Monsalve MD PATIENT NAME: Emeli Nascimento DATE: April 22, 2023 TIME: 8:39 AM documented in this encounter [facility] 01-08-2022 Nurse Note PATIENT DRESSED INDEPENDTLY AT BEDSIDE AND AMBULATED TO CAR AND WITH STEADY GAIT AND IN STABLE CONDITION. DR MONSALVE AT BEDSIDE UPDATING PATIENT. REVIEWED DISCHARGE INSTRUCTIONS WITH PATIENT AND . BOTH VERBALIZE UNDERSTANDING AND AGREE WITH PLAN. documented in this encounter [facility] 01-08-2022 History and physical note HISTORY AND PHYSICAL EXAMINATION SERVICE DATE: 01/08/2022 SERVICE TIME: 9:50AM PRIMARY CARE PHYSICIAN: Cat Kimball MD REASON FOR VISIT: Emeli Nascimento is a 71 year old female who is scheduled for EGD at the request of Dr. Rhina Monsalve for routine H&P. The patient has the following: ACTIVE PROBLEM LIST Hemorrhage of Rectum and Anus Urgency of Urination Cystocele, Midline Urge Incontinence Erosive Esophagitis Resendiz's Esophagus Without Dysplasia Hiatal Hernia Resendiz Esophagus Gastroesophageal Reflux Disease Subjective CHIEF COMPLAINT: Resendiz's esophagus without dysplasia [K22.70] HPI: Patient present to [facility] for the above procedure. Patient here for routine Upper GI Endoscopy screening. Pt last EGD about a year ago. Pt hx resendiz's esophagus and GERD. Patient denies any N/V/D or constipation. Denies any abdominal pain. Denies any melena, hematochezia, or hematemesis. Patient denies any other problems at this time. Denies any family history of Colon cancer or other Gastric ca. Patient agreed to planned procedure. METS: Climb a flight of stairs or walk up a hill (5.50 METs) Patient denies any CP/SOB with above activity. PAST MEDICAL HISTORY Diagnosis Date Resendiz's esophageal ulceration Resendiz's esophagus with low grade dysplasia 2012 & 05/02/2015 Diverticulitis of colon without hemorrhage GERD (gastroesophageal reflux disease) H. pylori infection Hemorrhage of rectum and anus Hemorrhoids without complication Hypercholesteremia Hypersomnia Malaise and fatigue Migraine w/o mgn w/o status migrainousus OAB (overactive bladder) PMH - PAST MEDICAL HISTORY OF PROLAPSED BLADDER Unspecified urinary incontinence USI and occ urgency Varicose veins of right lower extremity with pain PAST SURGICAL HISTORY Procedure Laterality Date COLONOSCOPY 05/02/2015 COLONOSCOPY FLX DX W/COLLJ SPEC WHEN PFRMD 07/2003 Colonoscopy COLONOSCOPY FLX DX W/COLLJ SPEC WHEN PFRMD 08/31/2008 Colonoscopy COLPOSCOPY CERVIX UPPER/ADJACENT VAGINA 1992 Colposcopy Cervicitis only No treatment EGD TRANSORAL BIOPSY SINGLE/MULTIPLE 02/09/2017 EGD TRANSORAL BIOPSY SINGLE/MULTIPLE 01/27/2018 intestinal metaplasia EGD TRANSORAL BIOPSY SINGLE/MULTIPLE 12/08/2018 intestinal metaplasia EGD TRANSORAL BIOPSY SINGLE/MULTIPLE 01/23/2020 Resendiz's without dysplasia; Dr. Monsalve EGD TRANSORAL BIOPSY SINGLE/MULTIPLE 01/09/2021 Resendiz's without dysplasia; Dr. Monsalve ESOPHAGOGASTRODUODENOSCOPY TRANSORAL DIAGNOSTIC 02/11/2016 EGD ESOPHAGOSCOPY FLEX TRANSORAL LESION ABLATION 06/18/2015 ESOPHAGOSCOPY FLEX TRANSORAL LESION ABLATION 12/02/2014 HYSTERECTOMY 2012 LIG/TRNSXJ FLP TUBE ABDL/VAG APPR UNI/BI Tubal ligation PAST SURGICAL HISTORY OF 09/01/2004 breast biopsy, benign FAMILY HISTORY Problem Relation Age of Onset Heart Mother CONGESTIVE HEART FAILURE Cancer Father nasal tumor other (brain tumor) Brother other (brain tumor) Sister Cancer Brother melanoma Breast Cancer Sister Cancer Brother brain tumor Breast Cancer Sister Colon Cancer Sister other (kidney cancer) Sister SOCIAL HISTORY: Social History Tobacco Use Smoking status: Never Smoker Smokeless tobacco: Never Used Substance Use Topics Alcohol use: Yes Comment: 1 x month Drug use: No Prior to Admission medications as of 01/08/22 0946 Medication Sig Last Dose Taking calcium carbonate/vitamin D3 (CALCIUM 600 + D,3, ORAL) Take by mouth once daily. Yes cholecalciferol, vitamin D3, (VITAMIN D3 ORAL) Take by mouth once daily. Yes omeprazole (PRILOSEC) 20 mg capsule Take 20 mg by mouth twice daily. Yes sucralfate (CARAFATE) 1 gram tablet Take 1 g by mouth twice daily. As needed Yes BABY ASPIRIN ORAL Take 81 mg by mouth once daily. No medication comments found. ALLERGIES No Known Allergies REVIEW OF SYSTEMS: PAIN ASSESSMENT: Pain Pain Level: 0 Pain Assessment (RN/SHAKER FLATWORK): Assessment Tool: Verbal (Numeric Rating or Visual Analog Scale) General: Denies fever, chills, and unexpected weight change. Neuro: Denies dizziness and headaches. Respiratory: Denies SOB. Cardiovascular: Denies CP and palpitations. GI: See HPI. : Denies dysuria. Endocrine: No history of diabetes or thyroid conditions. Hematology: Denies history of bleeding or clotting disorder. No known autoimmune disorders. Psych: Denies anxiety/depression. Musculoskeletal: Denies joint pain and swelling. Skin: Denies open sores and rashes. Objective PHYSICAL EXAM: VITALS: BP 107/72 Pulse 68 Temp (Src) 97.9 (Temporal Artery) Resp 18 Ht 5' 2 (1.58m) Wt 148 lb (67.1kg) SpO2 98% BMI 27.06 kg/(m^2). O2 Therapy: Room Air General: NAD. Cooperative. Skin: Skin is warm, no rashes, and no open sores. HEENT: Normocephalic. Cardiovascular: Normal S1 & S2. No murmur. Lungs: CTA Bilaterally. No respiratory distress. Abdomen: Soft. Pos BS x4quad Extremities: No edema. Neurological: Alert and oriented to person, place, and time. Pulses: radial pulses +2 Diagnostic tests reviewed for today's visit: Lab Value Units Date High Low HB No results within date range. HCT No results within date range. WBC No results within date range. PLT No results within date range. NA No results within date range. K No results within date range. GLUC No results within date range. BUN No results within date range. CREAT No results within date range. PTSEC No results within date range. INR No results within date range. APTT No results within date range. ALT No results within date range. AST No results within date range. TBILI No results within date range. TSH No results within date range. Lab Value Units Date High Low HCGQT No results within date range. UHCG No results within date range. HCG, BODY* No results within date range. Lab Value Units Date High Low ABORHD No results within date range. ABSCREEN No results within date range. No results found for: HBA1C Assessment/Plan Resendiz's esophagus without dysplasia [K22.70] Patient has the following medical conditions which may affect maya-operative course HLD - Diet controlled. PLAN Planned Procedure: EGD The Following Tests/Procedures Have Been Initiated: IV start and Maintenance fluid for the procedure. ANESTHESIA FINDINGS: Significant Anesthesia Considerations: None Planned Anesthetic: MAC Instructions Given to Patient: Patient given verbal preop instructions and voices comprehension and compliance. SIGNATURE: JAM Almendarez PATIENT NAME: Emeli Nascimento DATE: January 08, 2022 TIME: 9:50 AM PAGER/CONTACT #: documented in this encounter [facility] 01-08-2022 Miscellaneous Notes BRIEF OPERATIVE / PROCEDURE NOTE LOG ID: [id number] Surgery/Procedure Date: Incision/Procedure Start Time: 10:48 AM Incision Close/Procedure End Time: 11:07 AM Surgeon(s)/Proceduralist(s) and Busboy(s): Surgeon(s) and Role: * Thomas Aviles DO - Resident - Assisting * Rhina Monsalve MD - Proceduralist No Additional Staff Procedure(s): Anesthesia: * No anesthesia type entered * ASA Class: Findings: - Hill Grade IV Hiatal Hernia. - Duodenum with healthy-appearing mucosa without evidence of ulcer/duodenitis. - EG junction with Resendiz's esophagus-appearing mucosa. - 4 quadrant biopsies obtained. Estimated Blood Loss: <5 mls Antibiotics: Current Anti-Infective Meds (From admission, onward) None Specimens: ID Type Source Tests Collected by Time Destination A : GE JUNCTION BIOPSIES Tissue ESOPHAGOGASTRIC JUNCTION BIOPSY SURGICAL PATHOLOGY Thomas Aviles DO 01/08/2022 10:56 AM Complications: None Pre-Op/Pre-Procedure Diagnosis: * No Diagnosis Codes entered * Post-Op/Post-Procedure Diagnosis: * No Diagnosis Codes entered * SIGNATURE: Thomas Aviles DO PATIENT NAME: Emeli Nascimento DATE: January 08, 2022 TIME: 11:16 AM Pager: [phone] Associated attestation - Rhina Monsalve MD - 01/08/2022 1:02 PM EDT Attestation: I was present for the critical and yanes portions of the surgery and I was immediately available to provide assistance. Rhina Monsalve MD OPERATIVE/PROCEDURE REPORT LOG ID: [id number] SURGERY/PROCEDURE DATE: 01/08/2022 INCISION/PROCEDURE START TIME: 10:48 AM INCISION CLOSE/PROCEDURE END TIME: 11:07 AM SURGEON(S)/PROCEDURALIST(S) AND DETAIL ASSEMBLER(S): Rhina Monsalve MD - Proceduralist Thomas Aviles DO SURGERY/PROCEDURE(S): EGD with biopsy ANESTHESIA: Monitored Anesthesia Care SURGERY/PROCEDURE DETAILS: Patient is a 71-year-old female with Resendiz's esophagus. Presents today for screening EGD. The risks, benefits and complications were reviewed including but not limited to bleeding, infection, missing a lesion, effects of anesthesia and perforation possibly requiring an emergency surgery. Patient brought to the endoscopy suite and routine monitors performed. She was placed in left lateral decubitus position. After adequate MAC anesthesia was obtained scope was inserted passed on esophagus. Z-line noted be about 30 cm. There was an area of was concerning for Resendiz's esophagus. The rest was normal. The scope was inserted retroflexed view showed a Hill grade 4. Remainder the stomach and up to second portion of duodenum were normal. Scope was then withdrawn multiple biopsies were obtained of the distal esophagus and moved proximally to normal-appearing esophagus. Biopsies done in the 4 quadrants and 2 cm apart. Air was then aspirated of the stomach and the scope was withdrawn. She tolerated procedure well and transferred to recovery in stable condition. PRE-OP/PRE-PROCEDURE DIAGNOSIS: Resendiz's esophagus POST-OP/POST-PROCEDURE DIAGNOSIS: Same as Preop ESTIMATED BLOOD LOSS: 0 ml SPECIMENS: Esophageal biopsies IMPLANTABLE DEVICES: None DRAINS: None COMPLICATIONS: None PARTICIPATION IN SURGERY/PROCEDURE: I/primary surgeon/proceduralist performed the procedure with assistance. SIGNATURE: Rhina Monsalve MD PATIENT NAME: Emeli Nascimento DATE: January 08, 2022 TIME: 11:18 AM documented in this encounter [facility] 07-22-2008 History of Past i llness Narrative Problem Noted Date Resolved Date Female stress incontinence 07/22/200807/01 documented as of this encounter (statuses as of 01/09/2022) [facility] History of Past illness Narrative* Problem Noted Date Resolved Date Female stress incontinence 07/22/200807/01 documented as of this encounter (statuses as of 02/10/2023) [facility] History of Past illness Narrative* Problem Noted Date Diagnosed Date Resolved Date Female stress incontinence 07/22/2008 1 08/31/2008 documented as of this encounter (statuses as of 04/23/2023) [facility] History of Past illness Narrative* Problem Noted Date Diagnosed Date Resolved Date Female stress incontinence 07/22/2008 1 08/31/2008 documented as of this encounter (statuses as of 04/28/2023) [facility] note* Diagnosis Resendiz's esophagus without dysplasia Resendiz's esophagus documented in this encounter [facility] noteNo assessment information availableWWVUMedicine [facility] Work Phone: Evaluation note* Diagnosis Resendiz's esophagus without dysplasia- Primary Resendiz's esophagus documented in this encounter [facility] note* Diagnosis Resendiz's esophagus with low grade dysplasia- Primary Resendiz's esophagus Resendiz's esophagus without dysplasia Resendiz's esophagus Preop examination Preoperative examination, unspecified * Assessment & Plan Note - Gail Lynch APRN.CNP - 04/22/2023 7:15 AM EDT Associated Problem(s): Preop examination medical conditions which may affect the maya-operative course were addressed in the visit today. documented in this encounter [facility] note* Diagnosis Resendiz's esophagus without dysplasia- Primary Resendiz's esophagus documented in this encounter [facility] note* Diagnosis Resendiz's esophagus with low grade dysplasia- Primary Resendiz's esophagus Resendiz's esophagus without dysplasia Resendiz's esophagus Preop examination Preoperative examination, unspecified Preop examination- Primary Preoperative examination, unspecified Resendiz's esophagus without dysplasia Resendiz's esophagus Hypercholesteremia Pure hypercholesterolemia * Assessment & Plan Note - Suzanne Espinosa APRN.CNP - 03/23/2024 8:29 AM EDT Associated Problem(s): Hypercholesteremia Lifestyle modifications documented in this encounter [facility] note* Diagnosis Resendiz's esophagus with low grade dysplasia- Primary Resendiz's esophagus Resendiz's esophagus without dysplasia Resendiz's esophagus Preop examination Preoperative examination, unspecified Preop examination- Primary Preoperative examination, unspecified Resendiz's esophagus without dysplasia Resendiz's esophagus Hypercholesteremia Pure hypercholesterolemia Resendiz's esophagus without dysplasia- Primary Resendiz's esophagus documented in this encounter [facility] note* Diagnosis Resendiz's esophagus with low grade dysplasia- Primary Resendiz's esophagus Resendiz's esophagus without dysplasia Resendiz's esophagus Preop examination Preoperative examination, unspecified Preop examination- Primary Preoperative examination, unspecified Resendiz's esophagus without dysplasia Resendiz's esophagus Hypercholesteremia Pure hypercholesterolemia Encounter for screening colonoscopy- Primary Special screening for malignant neoplasms, colon documented in this encounter [facility] note* Diagnosis Resendiz's esophagus with low grade dysplasia- Primary Resendiz's esophagus Resendiz's esophagus without dysplasia Resendiz's esophagus Preop examination Preoperative examination, unspecified Preop examination- Primary Preoperative examination, unspecified Resendiz's esophagus without dysplasia Resendiz's esophagus Hypercholesteremia Pure hypercholesterolemia Preop examination- Primary Preoperative examination, unspecified Resendiz's esophagus without dysplasia Resendiz's esophagus Encounter for screening colonoscopy Special screening for malignant neoplasms, colon * Assessment & Plan Note - Suzanne Espinosa APRN.CNP - 04/12/2025 9:21 AM EDT Associated Problem(s): Resendiz's esophagus without dysplasia EGD 03/23/2024 Scheduled for EGD 04/12/2025 [facility] Outpatient Procedure (Routine) - Closed Specialty Diagnoses / Procedures Referred By Elias blevins Referred To Contact [facility] Diagnoses Resendiz's esophagus without dysplasia Procedures EGD DIAGNOSTIC ESOPHAGOGASTRODUODENOSC OPY TRANSORAL DIAGNOSTIC Rhina Monsalve MD [address] [address] [facility] [address] [place] [address] Referral ID Status Reason Start Date Expiration Date V isits Requested Visits Authorized [id number] Closed Auto-Generate d Referral 01/08/2022 12/18/2022 1 1 [facility] for referral (narrative)* Outpatient Procedure (Routine) - Authorized Specialty Diagnoses / Procedures Referred By Contac t Referred To Contact [facility] Diagnoses Resendiz's esophagus without dysplasia Procedures EGD DIAGNOSTIC ESOPHAGOGASTRODUODENOSC OPY TRANSORAL DIAGNOSTIC Rhina Monsalve MD [address] [employer] [facility] [address] [place] [address] [facility] [address] [place] [address] Referral ID Status Reason Start Date Expiration Date Visits Requested Visits Authorized [id number] Authorized Auto-Generat ed Referral 04/22/2023 02/11/2024 1 1 [facility] for referral (narrative)* Outpatient Procedure (Routine) - Authorized Specialty Diagnoses / Procedures Referred By Contjose de jesus t Referred To Contact [facility] Diagnoses Resendiz's esophagus without dysplasia Procedures EGD DIAGNOSTIC ESOPHAGOGASTRODUODENOSC OPY TRANSORAL DIAGNOSTIC Rhina Monsalve MD 1 [place] [facility] [address] [place] [address] [facility] [address] [place] [address] Referral ID Status Reason Start Date Expiration Date Visits Requested Visits Authorized [id number] Authorized Auto-Generat ed Referral 03/23/2024 03/08/2025 1 1 T [facility] for referral (narrative)No reason for referral information availableWWVUMedicine [facility] Work Phone: Reason for visit Narrative* Outpatient Procedure (Routine) - Closed Specialty Diagnoses / Procedures Referred By Elias t Referred To Contact [facility] Diagnoses Resendiz's esophagus without dysplasia Procedures EGD DIAGNOSTIC ESOPHAGOGASTRODUODENOSC OPY TRANSORAL DIAGNOSTIC Rhina Monsalve MD [address] [employer] [address] [place] [address] [facility] [address] [place] [address] Referral ID Status Reason Start Date Expiration Date V isits Requested Visits Authorized [id number] Closed Auto-Generate d Referral 01/08/2022 12/18/2022 1 1 [facility] for visit Narrative* Outpatient Procedure (Routine) - Closed Specialty Diagnoses / Procedures Referred By Elias t Referred To Contact [facility] Diagnoses Resendiz's esophagus without dysplasia Procedures EGD DIAGNOSTIC ESOPHAGOGASTRODUODENOSC OPY TRANSORAL DIAGNOSTIC Rhina Monsalve MD [facility] [address] [place] [address] [facility] [place] [address] [place] [address] Referral ID Status Reason Start Date Expiration Date V isits Requested Visits Authorized [id number] Closed Auto-Generate d Referral 04/22/2023 02/11/2024 1 1 [facility] for visit Narrative* Outpatient Procedure (Routine) - Closed Specialty Diagnoses / Procedures Referred By Elias blevins Referred To Contact [facility] Diagnoses Resendiz's esophagus without dysplasia Procedures EGD DIAGNOSTIC ESOPHAGOGASTRODUODENOSC OPY TRANSORAL DIAGNOSTIC Rhina Monsalve MD [address] [email or web address] [address] [place] [address] [facility] [place] [address] [place] [address] Referral ID Status Reason Start Date Expiration Date V isits Requested Visits Authorized [id number] Closed Auto-Generate d Referral 03/23/2024 03/08/2025 1 1 [facility] for visit Narrative* Outpatient Procedure (Routine) - Closed Specialty Diagnoses / Procedures Referred By Elias blevins Referred To Contact [facility] Diagnoses Encounter for screening colonoscopy Procedures COLONOSCOPY SCREENING COLONOSCOPY FLX DX W/COLLJ SPEC WHEN PFRMD Rhina Monsalve MD [address] [employer] [address] [place] [address] Phone: tel: fax: [facility] [address] [place] [address] Referral ID Status Reason Start Date Expiration Date V isits Requested Visits Authorized [id number] Closed Auto-Generate d Referral 03/29/2025 08/07/2025 1 1 [facility] Summary Purpose Family History No Family History Records FoundNo Family History Records FoundNo Family History Records FoundNo Family History Records FoundNo Family History Records FoundNo Family History Records Found Advance Directives No Advanced Directives Records FoundDocuments on File Type Date Recorded 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 Advance Directive(s) Advance Directive(s) 01/08/2022 9:33 AM Advance Directive(s) 01/09/2021 7:21 AM Advance Directive(s) 01/23/2020 12:25 PM Advance Directive(s) 12/08/2018 8:31 AM Advance Directive(s) 01/27/2018 7:25 AM Advance Directive(s) 12/30/2017 1:35 PM Medications Administered Section Inactive Administered Medications - up to 3 most recent administrations Medication Order MAR Action Action Date Dose Rate Site lactated ringers iv infusion 30 mL/hr, INTRAVENOUS, CONTINUOUS, Starting on Tue01/08/22 at 1000, Until Tue01/08/22 at 1115, Preprocedure New Bag/Syringe/Bottle 01/08/2022 9:55 AM EDT 30 mL/hr 30 mL/hr lactated ringers iv infusion 125 mL/hr, INTRAVENOUS, CONTINUOUS, Starting on Tue01/08/22 at 1130, Until 01/09/22 at 0413, Recovery or Phase I (only) New Bag/Syringe/Bottle 01/08/2022 11:12 AM EDT 125 mL/hr 125 mL/hr Inactive Administered Medications - up to 3 most recent administrations Medication Order MAR Action Action Date Dose Rate Site lactated ringers iv infusion 30 mL/hr, INTRAVENOUS, CONTINUOUS, Starting on Tue04/22/23 at 0700, Until Tue04/22/23 at 0841, Preprocedure Restarted 04/22/2023 8:09 AM EDT New Bag/Syringe/Bottle 04/22/2023 7:26 AM EDT 30 mL/hr 3 0 mL/hr lactated ringers iv infusion 125 mL/hr, INTRAVENOUS, CONTINUOUS, Starting on Tue04/22/23 at 0900, Until 04/23/23 at 0444 Rate Verify 04/22/2023 8:44 AM EDT 125 mL/hr 125 mL/hr Chief Complaint and Reason for Visit Chief Complaint SCREENING Chief Complaint OSTEO Chief Complaint SCREEN Chief Complaint Admit Date Asymptomatic menopausal state February 12, 2025 8:48am Additional Source Comments INFORMATION SOURCE (unrecogn ized section and content) DATE CREATED AUTHOR 01/18/2021 Ester Menezes [facility] DATE CREATED AUTHOR 'S ORGANIZ ATION 07/07/2021 [facility] DATE CREATED AUTHOR AUTHOR'S ORGANIZ ATION 06/05/2022 [facility] DATE CREATED AUTHOR AUTHOR'S ORGANIZ ATION 01/02/2025 Efrain Allison [facility] DATE CREATED AUTHOR AUTHOR'S ORGANIZ ATION 04/18/2025 Ester Menezes [facility] DATE CREATED AUTHOR AUTHOR'S ORGANIZ ATION 06/07/[address] [facility] Source Comments (unrecognize d section and content) In the event this informatio n is protected by the Federal Confidentiality of Alcohol and Drug Abuse Patient Records regulations: The Federal rules restrict any use of the information to criminally investigate or prosecute any alcohol or drug abuse patient.[facility] the event this information is protected by the Federal Confidentiality of Alcohol and Drug Abuse Patient Records regulations: The Federal rules restrict any use of the information to criminally investigate or prosecute any alcohol or drug abuse patient.[facility] the event this information is protected by the Federal Confidentiality of Alcohol and Drug Abuse Patient Records regulations: The Federal rules restrict any use of the information to criminally investigate or prosecute any alcohol or drug abuse patient.[facility] the event this information is protected by the Federal Confidentiality of Alcohol and Drug Abuse Patient Records regulations: The Federal rules restrict any use of the information to criminally investigate or prosecute any alcohol or drug abuse patient.[facility] the event this information is protected by the Federal Confidentiality of Alcohol and Drug Abuse Patient Records regulations: The Federal rules restrict any use of the information to criminally investigate or prosecute any alcohol or drug abuse patient.[facility] the event this information is protected by the Federal Confidentiality of Alcohol and Drug Abuse Patient Records regulations: The Federal rules restrict any use of the information to criminally investigate or prosecute any alcohol or drug abuse patient.[facility]In the event this information is protected by the Federal Confidentiality of Alcohol and Drug Abuse Patient Records regulations: The Federal rules restrict any use of the information to criminally investigate or prosecute any alcohol or drug abuse patient.[facility] HospitalIn the event this information is protected by the Federal Confidentiality of Alcohol and Drug Abuse Patient Records regulations: The Federal rules restrict any use of the information to criminally investigate or prosecute any alcohol or drug abuse patient.[facility] HospitalIn the event this information is protected by the Federal Confidentiality of Alcohol and Drug Abuse Patient Records regulations: The Federal rules restrict any use of the information to criminally investigate or prosecute any alcohol or drug abuse patient.[facility] HospitalIn the event this information is protected by the Federal Confidentiality of Alcohol and Drug Abuse Patient Records regulations: The Federal rules restrict any use of the information to criminally investigate or prosecute any alcohol or drug abuse patient.[facility] HospitalIn the event this information is protected by the Federal Confidentiality of Alcohol and Drug Abuse Patient Records regulations: The Federal rules restrict any use of the information to criminally investigate or prosecute any alcohol or drug abuse patient.[facility] Care Teams (unrecognized sec tion and content) Big Machine Consultant Relationship Specialty Start Date End Date Cat Kimball MD PCP - General Internal Medicine 11/09/17 [employer] Machine Consultant Relationship Specialty Start Date End Date Cat Kimball MD PCP - General Internal Medicine 11/09/17 Team Status: Active Member Role Status Dates Dr. Cat Kimball MD Family Provider Active Dr. Cat Kimball MD Primary Care Provider Active Team Status: Inactive Member Role Status Dates Dr. Cat Kimball MD Primary Care Prov ider, Attending Provider, Referring Provider Active [employer] Machine Consultant Relationship Specialty Start Date End Date Cat Kimball MD PCP - General Internal Medicine 11/09/17 [employer] Machine Consultant Relationship Specialty Start Date End Date Cat Kmiball MD PCP - General Internal Medicine 11/09/17 Big Machine Consultant Relationship Specialty Start Date End Date Cat Kimball MD PCP - General Internal Medicine 11/09/17 Big Machine Consultant Relationship Specialty Start Date End Date Cat Kimball MD PCP - General Internal Medicine 11/09/17 [employer] Machine Consultant Relationship Specialty Start Date End Date Cat Kimball MD PCP - General Internal Medicine 11/09/17 Team Status: Active Member Role/Relationship Status Dates Dr. Cat Kimball MD Primary Care Provider Active Team Status: Inactive Member Role/Relationship Status Dates Dr. Cat Kimball MD Primary Care Provider Active Start: February 12, 2025 End: February 12, 2025 Dr. Cat Kimball MD Attending Provider Active Start: February 12, 2025 End: February 12, 2025 Dr. Cat Kimball MD Referring Provider Active Start: February 12, 2025 End: February 12, 2025 [employer] Machine Consultant Relationship Specialty Start Date End Date Cat Kimball MD PCP - General Internal Medicine 11/09/17 Big Machine Consultant Relationship Specialty Start Date End Date Cat Kimball MD PCP - General Internal Medicine 11/09/17 Big Machine Consultant Relationship Specialty Start Date End Date Cat Kimball MD PCP - General Internal Medicine 11/09/17 Big Machine Consultant Relationship Specialty Start Date End Date Cat Kimball MD PCP - General Internal Medicine 11/09/17 Goals (unrecognized section and content) Goals may be documented in a n alternate sectionGoals may be documented in an alternate sectionGoals may be documented in an alternate sectionGoals may be documented in an alternate section Reason for Visit (unrecogniz ed section and content) Reason Comments Results Reason Comments Future Appointment EGD & colonoscopy sc heduled 04/12/25 at [facility] FOR RECORDS PERTAINING TO PATIENTS WHO ARE OR HAVE BEEN ENROLLED IN A CHEMICAL DEPENDENCY/SUBSTANCEABUSE PROGRAM, SOME INFORMATION MAY BE OMITTED. This clinical summary was aggregated from multiple sources. Caution should be exercised in using it in the provision of clinical care. This summary normalizes information from multiple sources, and as a consequence, information in this document may materially change the coding, format and clinical context of patient data. In addition, data may be omitted in some cases. CLINICAL DECISIONS SHOULD BE BASED ON THE PRIMARY CLINICAL RECORDS. [facility] [employer] [facility]. provides no warranty or guarantee of the accuracy or completeness of information in this document.
== END | disposition home or self-care (01) ==
LOC: OPBI 07:32
PROVIDERS: PCP Student in an Organized Health Care Education/Training Program; Referring Provider Student in an Organized Health Care Education/Training Program; Visit Provider Student in an Organized Health Care Education/Training Program
DX: Z12.31 Encounter for screening mammogram for malignant neoplasm of breast (principal)
CPT/HCPCS: 77063; 77067